=== PATIENT | female | born 1955 | race Caucasian/White ===

== ENCOUNTER 2016-12-22 21:34 | Emergency (ER) | payer OTHER ==
[~2016-12-22] VITALS: Ht 160 cm; Wt 84.5 kg
[~2016-12-22 21:34] MED LIST: ADAL1KIT SC; DYZ PO; FOLI1TAB7 PO; METH2.5T PO; MULT1CAP3 PO; POTA99TA PO
[2016-12-22 21:40] VITALS: Ht 160 cm; Wt 84.5 kg
[2016-12-22] MEDS ORDERED: DiphenhydrAMINE HCL 50 MG/ML VIAL IV STA (22:12)
[2016-12-22] MEDS ORDERED: DEXAMETHASONE SOD INJ 4 MG/ML VIAL IV STA (22:12)
[2016-12-22] MEDS ORDERED: SODIUM CHLORIDE 0.9% 1000ML 1,000 ML IV STA (22:12)
[2016-12-22] MEDS ORDERED: ONDANSETRON INJ 2 MG/ML 2 ML VIAL IV STA (22:12)
[2016-12-22 22:42] LABS: BASO % 0.3 %; BASO ABS # 0.02 K/uL (0-0.2); COMPLETE YES; EOS % 0.7 %; IG% 0.1 %; LYMPH % 21.2 %; MEAN CELL VOLUME 91.9 fL (80-100); MEAN CORPUSCULAR HEMOGLOBIN 30.9 pg (25-34); MEAN CORPUSCULAR HGB CONC 33.7 g/dl (32-36); MEAN PLATELET VOLUME 9.6 fL (7.4-10.4); MONO % 6.6 %; NEUT % 71.1 %; PLATELET COUNT 256 K/uL (130-400); RED BLOOD COUNT 4.46 M/uL (4.2-5.4); WHITE BLOOD COUNT 7.07 K/uL (4.8-10.8)
[2016-12-22] MEDS ORDERED: TRIA37.53 PO (22:45)
[2016-12-22 23:08] LABS: BUN/CREATININE RATIO 14.7 (10-20); CALCIUM 9.3 mg/dl (8.5-10.1); CREATININE 0.99 mg/dl (0.60-1.20)
[2016-12-22] MEDS ORDERED: HYDROmorphone INJ 1 MG/ML SYR IV STA (23:14)
--- NOTE | 2016-12-23 00:31 | EMERGENCY ROOM VISIT NOTE ---
History First contact with patient: 22:02 Chief Complaint: VOMITING Stated Complaint: DEHYDRATED,THROWING UP Nursing Triage Summary: migraine all day, vomiting on the way here, feels she is dehydrated, whole body ahces History of Present Illness The patient is a 61 year old female who presents to the Emergency Room with complaints of headache, dizziness and vomiting. The patient states her symptoms began yesterday. She reports she has a history of headaches and does typically have associated dizziness. She states these happened frequently and she does not have a headache like this in at least 5 years. It is not the worst headache of her life. She states that she becomes dizzy when standing up and moving. She has had persistent vomiting. She has a history of rheumatoid arthritis and states that she does have body aches and feels like she is dehydrated. She denies neck pain/stiffness, fevers, abdominal pain, numbness, weakness, confusion, blurred vision or slurred speech. Review of Systems A complete 10 point review of systems was reviewed with the patient with pertinent positives and negatives as per history of present illness. All else were negative. Past Medical/Surgical History Medical Problems: (1) Calculus Of Ureter (2) Cholelith W Cholecys Nec (3) Diverticulosis Colon (W/O Ment Of Hemorrhage) (4) Esophageal Reflux (5) Hypertension Nos (6) Migraine Unspecified W/O Intractable Migraine Social History Smoking Status: Never Smoker Alcohol Use: occasionally Marital Status: Occupation Status: employed Current/Historical Medications Scheduled Adalimumab (Humira), 40 MG SC [id number] Folic Acid (Folvite), 1 MG PO HS Methotrexate (Methotrexate), 15 MG PO WK Multiple Vitamins W/ Minerals (Womens Multi), 1 CAP PO DAILY Potassium (Potassium), MEQ PO DAILY Triamterene & Hydrochlorothiaz (Hctz/Triamterene), 1 TAB PO DAILY Allergies Coded Allergies: Acetylcysteine (Verified Allergy, Severe, Throat Swelling, Cough, Dry Mouth, Itching, 12/22/16) Physical Exam Vital Signs Date Time Temp Pulse Resp B/P (MAP) Pulse Ox O2 Delivery O2 Flow Rate FiO2 12/23/16 00:42 37.0 87 18 117/64 95 12/22/16 23:34 87 18 117/64 90 Room Air 12/22/16 21:40 37.8 97 18 160/92 93 Room Air Physical Exam VITALS: Vitals are noted on the nurse's note and reviewed by myself. Vital signs stable. GENERAL: This is a 61-year-old female, in no acute distress, nondiaphoretic, well-developed well-nourished. SKIN: The skin was without rashes. HEAD: Normocephalic atraumatic. EARS: External auditory canals clear, tympanic membranes pearly mae without erythema or effusion bilaterally. EYES: Pupils equal round and reactive to light and accommodation. Conjunctivae without injection, sclerae without icterus. Extraocular movements intact. No nystagmus. MOUTH: Mucous membranes moist. Tonsils are not enlarged. Pharynx without erythema or exudate. NECK: Supple without nuchal rigidity. No lymphadenopathy. No meningismus. HEART: Regular rate and rhythm without murmurs gallops or rubs. LUNGS: Clear to auscultation bilaterally without wheezes, rales or rhonchi. ABDOMEN: Soft, nontender to palpation. MUSCULOSKELETAL: Full range of motion in all extremities. Strength 5/5 throughout. NEURO: Patient was alert and oriented to person place and time. Normal sensation to light and sharp touch. No focal neurological deficits. Medical Decision & Procedures ER Provider Diagnostic Interpretation: CT HEAD: No ICH, mass effect or edema. No evidence of acute cortical stroke. Visualized sinuses and mastoid air cells are clear. Radiologist: Gautam Fisher MD Laboratory Results 12/22/16 22:30 Red Blood Count 4.46, Mean Corpuscular Volume 91.9, Mean Corpuscular Hemoglobin 30.9, Mean Corpuscular Hemoglobin Concent 33.7, Mean Platelet Volume 9.6, Neutrophils (%) (Auto) 71.1, Lymphocytes (%) (Auto) 21.2, Monocytes (%) (Auto) 6.6, Eosinophils (%) (Auto) 0.7, Basophils (%) (Auto) 0.3, Neutrophils # (Auto) 5.02, Lymphocytes # (Auto) 1.50, Monocytes # (Auto) 0.47, Eosinophils # (Auto) 0.05, Basophils # (Auto) 0.02 12/22/16 22:30 Test 12/22/16 22:30 White Blood Count 7.07 K/uL (4.8-10.8) Red Blood Count 4.46 M/uL (4.2-5.4) Hemoglobin 13.8 g/dL (12.0-16.0) Hematocrit 41.0 % (37-47) Mean Corpuscular Volume 91.9 fL (80-100) Mean Corpuscular Hemoglobin 30.9 pg (25-34) Mean Corpuscular Hemoglobin Concent 33.7 g/dl (32-36) Platelet Count 256 K/uL (130-400) Mean Platelet Volume 9.6 fL (7.4-10.4) Neutrophils (%) (Auto) 71.1 % Lymphocytes (%) (Auto) 21.2 % Monocytes (%) (Auto) 6.6 % Eosinophils (%) (Auto) 0.7 % Basophils (%) (Auto) 0.3 % Neutrophils # (Auto) 5.02 K/uL (1.4-6.5) Lymphocytes # (Auto) 1.50 K/uL (1.2-3.4) Monocytes # (Auto) 0.47 K/uL (0.11-0.59) Eosinophils # (Auto) 0.05 K/uL (0-0.5) Basophils # (Auto) 0.02 K/uL (0-0.2) RDW Standard Deviation 48.6 fL (36.4-46.3) RDW Coefficient of Variation 14.6 % (11.5-14.5) Immature Granulocyte % (Auto) 0.1 % Immature Granulocyte # (Auto) 0.01 K/uL (0.00-0.02) Anion Gap 6.0 mmol/L (3-11) Est Creatinine Clear Calc Drug Dose 61.4 ml/min Estimated GFR () 71.3 Estimated GFR (Non- 61.5 BUN/Creatinine Ratio 14.7 (10-20) Calcium Level 9.3 mg/dl (8.5-10.1) Total Bilirubin 0.7 mg/dl (0.2-1) Direct Bilirubin 0.2 mg/dl (0-0.2) Aspartate Amino Transf (AST/SGOT) 21 U/L (15-37) Alanine Aminotransferase (ALT/SGPT) 37 U/L (12-78) Alkaline Phosphatase 84 U/L (45-117) Total Protein 7.6 gm/dl (6.4-8.2) Albumin 4.0 gm/dl (3.4-5.0) Medications Administered Medications (Trade) Dose Ordered Sig/Kai Route Start Time Stop Time Status Last Admin Dose Admin Sodium Chloride 1,000 ml @ 999 mls/hr Q1H1M STAT IV 12/22/16 22:12 12/22/16 23:12 DC 12/22/16 22:32 999 MLS/HR Dexamethasone Sodium Phosphate (Decadron Inj) 10 mg NOW STAT IV 12/22/16 22:12 12/22/16 22:15 DC 12/22/16 22:33 10 MG Diphenhydramine HCl (Benadryl Inj) 25 mg NOW STAT IV 12/22/16 22:12 12/22/16 22:15 DC 12/22/16 22:33 25 MG Ondansetron HCl (Zofran Inj) 4 mg NOW STAT IV 12/22/16 22:12 12/22/16 22:15 DC 12/22/16 22:33 4 MG Hydromorphone HCl (Dilaudid Inj) 1 mg NOW STAT IV 12/22/16 23:14 12/22/16 23:15 DC 12/22/16 23:26 1 MG ED Course The patient was evaluated as above. Labs were drawn and IV access was obtained. Patient was medicated with 10 mg Decadron, 25 mg Benadryl and [address] of the head was performed and read by radiology as above. Patient was reevaluated and was sleeping. The patient was woken up and reported that she had no improvement of her symptoms. She was given 1 mg Dilaudid IV. Patient was reevaluated and was sleeping and had to be woken up. She states she still has a slight headache, but feels ready for discharge home. Discharge instructions were reviewed with the patient. The patient verbalized understanding of my assessment and treatment plan and was discharged home in good condition. Medical Decision The differential diagnosis includes acute intracranial bleed, meningitis, encephalitis, mass or mass effect, sinusitis, infection, tumor, headache, temporal arteritis and carbon monoxide exposure, and migraine. The patient is a 61-year-old female who presents today complaining of headache, dizziness and vomiting. Patient has been seen here before for the same symptoms. She states she has a history of similar symptoms and she typically does have dizziness and vomiting with her headaches. There are no physical exam findings to suggest meningitis or encephalitis. Patient's initial temperature was elevated, however this was rechecked and was within normal limits without any antipyretics. Labs revealed no leukocytosis, anemia or concerning electrolyte abnormalities. CT of the head was unremarkable. The patient had improvement with the above medications. I do not feel that she has a subarachnoid hemorrhage or infectious process. She was certainly invited to return here if she has worsening symptoms at home. Based on the patient's presentation and work up, I feel the patient is stable for outpatient treatment. The patient was educated to return to the emergency department for any worsening of their current condition or new/concerning symptoms. She will follow up with her PCP. Medication reconciliation: I attest that I have personally reviewed the patient 's current medication list. Blood pressure screening: Patient was found to have normal blood pressure on screening and does not require follow-up. Impression Primary Impression: Headache Departure Information Dispostion Home / Self-Care Condition GOOD Referrals Rona Gray,[email or web address].[email or web address] (PCP) Patient Instructions My [facility] Additional Instructions You have been treated in the Emergency Department for a Headache. You have received pain medicine in the emergency department which impairs your ability to operate a vehicle. It is illegal for you to drive after receiving these medicines. For pain control, you can use the following [id number]-jfpcduq medicines (if >12 yo): - Regular strength (325mg/tab) Tylenol (acetaminophen) 2 tabs every 4-6 hours as needed. Do not exceed 12 tablets in a 24 hour period. Avoid taking more than 4 grams (4000 mg) of Tylenol per day. This includes any other sources of acetaminophen you may take on a regular basis. - Regular strength (200 mg/tab) Advil (ibuprofen) 1-2 tabs every 4-6 hours as needed. Do not exceed a dose of 3200 mg per day. You should relax in a quiet, dark place for the rest of the day. Avoid any possible triggers including: cigarette smoke, caffeine, nicotine, chocolate, wine, beer, loud noises or music, or bright lights. You should schedule a follow-up appointment in 2-3 days with your Primary Care Provider or established Neurologist for further evaluation and treatment of your Headache. Return to the Emergency Department if your current symptoms worsen despite treatment course outlined above, or if you develop any of the following symptoms : intractable pain despite aforementioned treatment course, visual disturbances , loss of vision, unilateral weakness or facial drooping, slurring of speech, loss of coordination, or loss of consciousness. Problem Qualifiers Primary Impression: Headache Headache type: unspecified Headache chronicity pattern: acute headache Intractability: not intractable Qualified Codes: R51 - Headache
[2016-12-23 00:42] VITALS: BP 117/64; PULSE 87; TEMP 37; O2SAT 95
--- NOTE | 2016-12-23 07:05 | DIAGNOSTIC IMAGING REPORT ---
CT HEAD WITHOUT CONTRAST (CT) CLINICAL HISTORY: headache, dizziness COMPARISON STUDY: 10/01/2013 TECHNIQUE: Axial CT of the brain is performed from the vertex to the skull base. IV contrast was not administered for this examination. CT DOSE: 537.48 mGy.cm FINDINGS: No intra or extra-axial mass lesions are visualized. There is no CT evidence of acute cortical infarction. There is no evidence of midline shift. There is no acute hemorrhage. No calvarial fractures are visualized. There are minimal white matter hypodensities likely on a small vessel basis. There is no evidence of pathologic ventricular dilatation. There is trace fluid within sphenoid sinus. IMPRESSION: Trace fluid within the sphenoid sinus. Otherwise unremarkable noncontrast head CT for age Electronically signed by: Teddy Nova M.D. 12/23/2016 7:04 AM Dictated Date/Time: 12/23/2016 7:03 AM
== END 2016-12-23 00:43 | disposition home or self-care (01) ==
LOC: C.EDB 21:35 → C.EDA 12-23 00:43
DX: R51 Headache (principal); Z87.442 Personal history of urinary calculi; K21.9 Gastro-esophageal reflux disease without esophagitis; I11.0 Hypertensive heart disease with heart failure; K57.30 Diverticulosis of large intestine without perforation or abscess without bleeding; K80.10 Calculus of gallbladder with chronic cholecystitis without obstruction; Z79.899 Other long term (current) drug therapy

== ENCOUNTER 2017-05-20 00:32 | Emergency (ER) | payer OTHER ==
[~2017-05-20] VITALS: Ht 160 cm; Wt 80.5 kg
[~2017-05-20 00:32] MED LIST changes: -DYZ PO; +TRIA37.53 PO
[2017-05-20 00:42] VITALS: TEMP 36.8; Ht 160 cm; Wt 80.5 kg
[2017-05-20] MEDS ORDERED: MoRPHine SULFATE 4 MG/ML 1 ML CARP\\VIAL IM STA (00:54)
--- NOTE | 2017-05-20 00:56 | EMERGENCY ROOM VISIT NOTE ---
History Report prepared by Scribe: Sadia Ellison Under the Supervision of: Dr. Law Kent D.O. First contact with patient: 00:45 Chief Complaint: SHOULDER PAIN Stated Complaint: SHOULDER PAIN History of Present Illness The patient is a 62 year old female who presents to the Emergency Room with complaints of worsening left shoulder pain since last night. She rates her discomfort as a 10/10 in severity. Ibuprofen and ice have provided minimal pain relief. She denies any known injury. She states her left arm also feels numb and her fingers appear swollen. She can still feel normal sensation in the fingers. She denies any history of rotator cuff injuries or shoulder dislocation. She denies any neck pain. The patient also complains of dizziness and nausea. The patient has a history of rheumatoid arthritis for which she takes Methotrexate and receives Humira injections. She reports her other joints feel normal currently. Source of History: patient Onset: last night Position: shoulder (left) Symptom Intensity: 10/10 Timing: worsening Modifying Factors (Relieving): ibuprofen, ice Associated Symptoms: + nausea, + numbness (in fingers of left hand), No neck pain Review of Systems See HPI for pertinent positives and negatives. A total of ten systems were reviewed and were otherwise negative. Past Medical & Surgical Medical Problems: (1) Calculus Of Ureter (2) Cholelith W Cholecys Nec (3) Diverticulosis Colon (W/O Ment Of Hemorrhage) (4) Esophageal Reflux (5) Hypertension Nos (6) Migraine Unspecified W/O Intractable Migraine Social History Smoking Status: Never Smoker Alcohol Use: occasionally Drug Use: none Marital Status: Housing Status: lives with family Occupation Status: employed Current/Historical Medications Scheduled Adalimumab (Humira), 40 MG SC [id number] Folic Acid (Folvite), 1 MG PO HS Methotrexate (Methotrexate), 15 MG PO WK Multiple Vitamins W/ Minerals (Womens Multi), 1 CAP PO DAILY Potassium (Potassium), MEQ PO DAILY Triamterene & Hydrochlorothiaz (Hctz/Triamterene), 1 TAB PO DAILY Allergies Coded Allergies: Acetylcysteine (Verified Allergy, Severe, Throat Swelling, Cough, Dry Mouth, Itching, 12/22/16) Physical Exam Vital Signs Date Time Temp Pulse Resp B/P (MAP) Pulse Ox O2 Delivery O2 Flow Rate FiO2 05/20/17 02:15 84 18 127/76 98 Room Air 05/20/17 00:42 36.8 81 18 120/80 97 Room Air Physical Exam GENERAL: Awake, alert, well-appearing, in no distress HENT: Normocephalic, atraumatic. Oropharynx unremarkable. EYES: Normal conjunctiva. Sclera non-icteric. NECK: Supple. No nuchal rigidity. FROM. No JVD. RESPIRATORY: Clear to auscultation. CARDIAC: Regular rate, normal rhythm. Extremities warm and well perfused. Pulses equal. ABDOMEN: Soft, non-distended. No tenderness to palpation. No rebound or guarding. No masses. RECTAL: Deferred. MUSCULOSKELETAL: Tenderness at left proximal humerus, tenderness at left trapezius, no tenderness at post cervical region, tenderness along left biceps with slight edema, all the way down to left hand, bounding radial pulse, NVI distally. Increased pain with abduction of left shoulder. Chest examination reveals no tenderness. The back is symmetrical on inspection without obvious abnormality. There is no CVA tenderness to palpation. LOWER EXTREMITIES: Calves are equal size bilaterally and non-tender. No edema. No discoloration. NEURO: Normal sensorium. No sensory or motor deficits noted. SKIN: No rash or jaundice noted. Medical Decision & Procedures ER Provider Diagnostic Interpretation: X-ray: Per my interpretation, radiologist review. LEFT SHOULDER XRAY Post soft tissue swelling of left shoulder. No fracture or dislocation. Medications Administered Medications (Trade) Dose Ordered Sig/Kai Route Start Time Stop Time Status Last Admin Dose Admin Morphine Sulfate (MoRPHine SULFATE INJ) 4 mg NOW STAT IM 05/20/17 00:54 05/20/17 00:55 DC 05/20/17 01:01 4 MG Acetaminophen/ Hydrocodone Bitart ([place] 5/325 Tab) 1 tab NOW STAT PO 05/20/17 02:02 05/20/17 02:03 DC 05/20/17 02:12 1 TAB Acetaminophen/ Hydrocodone Bitart ([place] 5/325mg Home Pack) 1 homepack UD ONCE PO 05/20/17 02:15 05/20/17 02:16 DC 05/20/17 02:12 1 HOMEPACK Ibuprofen (Motrin Tab) 800 mg NOW STAT PO 05/20/17 02:02 05/20/17 02:03 DC 05/20/17 02:12 800 MG ED Course 0049: The patient was evaluated in room A4B. A complete history and physical exam was performed. 0054: Morphine Sulfate 4 mg IM. 0156: I reevaluated the patient. She is feeling well and resting comfortably. I discussed her results and discharge instructions and she verbalized complete understanding and agreement. Medical Decision The differential diagnoses considered include radiculopathy, herniated disc, arthritis, adhesive capsulitis, RA flare and occult fracture. Patient on repeat examination feels slightly improved after IM morphine. Patient likely has bursitis or arthritis and radiculopathy at this time. Patient was started on Motrin morphine and Lortab. Patient will follow-up with her primary care physician patient is also receive Humira today Patient's [employer] was reviewed there is no recent narcotic prescriptions in the past year Medication Reconcilliation Current Medication List: was personally reviewed by me Blood Pressure Screening Patient's blood pressure: Normal blood pressure Blood pressure disposition: Did not require urgent referral Impression Primary Impression: Left shoulder pain Additional Impression: Arthritis Scribe Attestation The scribe's documentation has been prepared under my direction and personally reviewed by me in its entirety. I confirm that the note above accurately reflects all work, treatment, procedures, and medical decision making performed by me. Departure Information Dispostion Home / Self-Care Prescriptions Hydrocodone/Acetaminophen 5MG/325MG ([place] 5MG/325MG) Tab 1 TABLET PO Q4H Y for Pain, #10 TAB Prov: Law Kent, DO 05/20/17 Referrals Lora Lawton C.R.N.P (PCP) Patient Instructions Arthritis, ED Shoulder Pain [facility] [place], [facility] [place] Additional Instructions Continue pain medicines, follow-up with her primary care physician, return for worsening symptoms Problem Qualifiers
[2017-05-20] MEDS ORDERED: IBUPROFEN 800 MG TAB PO STA (02:02)
[2017-05-20] MEDS ORDERED: HYDROCODONE/ACETAMOPHEN 5/325MG TAB PO STA (02:02)
[2017-05-20 02:15] VITALS: BP 127/76; PULSE 84; O2SAT 98
[2017-05-20] MEDS ORDERED: NORCO 5/325MG HOME PACK PO ONE (02:15)
[2017-05-20] MEDS ORDERED: HYDR-5688 PO (02:19)
--- NOTE | 2017-05-20 08:19 | DIAGNOSTIC IMAGING REPORT ---
LEFT SHOULDER 3 VIEWS CLINICAL HISTORY: Left shoulder pain. No reported history of trauma. FINDINGS: 3 views of the left shoulder are obtained. No prior studies are available for comparison at the time of dictation. The skeletal structures are osteopenic. No fracture or dislocation is seen. Mild productive change is identified at the acromioclavicular joint. The glenohumeral articulation is preserved. The overlying soft tissues are within normal limits. The imaged left upper lobe lung parenchyma appears clear. IMPRESSION: No acute bony abnormality is seen in the left shoulder. Electronically signed by: Jaidel Azar M.D. 05/20/2017 8:18 AM Dictated Date/Time: 05/20/2017 8:17 AM
== END 2017-05-20 02:30 | disposition home or self-care (01) ==
LOC: C.EDB 00:33 → C.EDA 02:30
DX: M25.512 Pain in left shoulder (principal); M19.90 Unspecified osteoarthritis, unspecified site; R20.0 Anesthesia of skin; R11.0 Nausea; I10 Essential (primary) hypertension; K21.9 Gastro-esophageal reflux disease without esophagitis; Z79.899 Other long term (current) drug therapy; Z87.442 Personal history of urinary calculi; Z87.19 Personal history of other diseases of the digestive system

== ENCOUNTER → 2017-05-29 | Outpatient (CLI) | payer OTHER ==
[~2017-05-29] MED LIST changes: -FOLI1TAB7 PO; +FOLI1TAB8 PO; +HYDR-5688 PO
[2017-05-29 13:00] LABS: CHOLESTEROL/HDL RATIO 3.6
== END | disposition home or self-care (01) ==
LOC: C.LABPVFM 09:49
PROVIDERS: ATTEND Nurse Practitioner
DX: I10 Essential (primary) hypertension (principal)

== ENCOUNTER → 2017-06-21 | Outpatient (CLI) | payer OTHER ==
--- NOTE | 2017-06-22 14:37 | MAMMOGRAPHY REPORT ---
BILATERAL DIGITAL SCREENING MAMMOGRAM TOMOSYNTHESIS WITH CAD: 06/21/2017 CLINICAL HISTORY: Routine screening. Patient has no complaints. TECHNIQUE: Breast tomosynthesis in addition to standard 2D mammography was performed. Current study was also evaluated with a Computer Aided Detection (CAD) system. COMPARISON: Comparison is made to exams dated: 02/07/2011 mammogram - [facility] an d 06/19/2008. BREAST COMPOSITION: There are scattered areas of fibroglandular density in both breasts. FINDINGS: No suspicious masses, calcifications, or areas of architectural distortion are noted in ei ther breast. There has been no significant interval change compared to prior exams. Scattered bilater al benign-appearing calcifications are not significantly changed. IMPRESSION: ACR BI-RADS CATEGORY 2: BENIGN There is no mammographic evidence of malignancy. A 1 year screening mammogram is recommended. The pa tient will receive written notification of the results. Approximately 10% of breast cancers are not detected with mammography. A negative mammographic report should not delay biopsy if a clinically suggestive mass is present. Debra Simons M.D. ah/:06/21/2017 12:51:01 Real Estate Agent/Broker: Rona RYAN(Bessie)(M)(BD), [facility] letter sent: Normal /2 BI-RADS Code: ACR BI-RADS Category 2: Benign
== END | disposition home or self-care (01) ==
LOC: C.MAMM 10:47
PROVIDERS: ATTEND Nurse Practitioner
DX: M85.88 Other specified disorders of bone density and structure, other site (principal)

== ENCOUNTER 2024-08-06 08:37 | Inpatient (IN) ==
[2024-08-06] MEDS: SODIUM CHLORIDE 0.9% 1,000 ML IV ONE (09:45)
[2024-08-06] MEDS: LORazepam 2 MG/1 ML VIAL IV STA (09:45)
--- OUTSIDE RECORDS SUMMARY | 2024-08-06 09:48 | External Medical Summary | Summary of Care ---
Author Name Unknown Organization [facility] Address [address] [facility] [place] [address] Phone [phone] Care Team Providers Care Body Welder Name Role Phone Lora Lawton Primary Care Provide r Encounter Details Date Type Department Care Team (Late st Contact Info) Description 07/10/2024 Population Health External Data Unspecified Department Allergies Active Allergy Reactions Criticality Noted Date Comments Acetylcysteine 02/01/2015 documented as of this encounter (statuses as of 07/10/2024) Medications TRIAMTERENE-HCT Z 37.5-25 MG PO CAPS daily Active Potassium 99 MG Tablet 1 daily Active Atorvastatin Calcium 10 MG Oral Tablet (Lipitor) Take 1 Tablet by mouth in the morning. 11/12/2020 Active predniSONE 20 MG Oral Tablet (Deltasone) TAKE 3 TABLETS ONCE DAILY FOR 2 DAYS,2TABS X 2DAYS,1TAB X 2DAYS,1/2TAB X 2DAYS 01/15/2022 Active predniSONE 5 MG Oral Tablet (Deltasone) 4 tabs daily x 3 days, 3 tabs daily x 3 days, 2 tabs daily x 3 days, 1 tab daily x 3 days, stop 30 Tablet 02/16/2022 Active Naproxen 500 MG Oral Tablet (Naprosyn) Take 1 Tablet by mouth 2 times a day with morning and evening meals. 08/01/2023 Active Aspirin 81 MG Oral Tablet Delayed Release Take 1 Tablet by mouth in the morning. 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 90 Tablet 1 02/19/2024 Active documented as of this encounter (statuses as of 07/10/2024) Active Problems Problem Noted Date Diagnosed Date Encounter for long-term (current) use of medicat ions 06/06/2017 Primary osteoarthritis of both knees 06/06/2017 Rhe[facility] of [facility] without rheumatoid factor 12/15/2015 Hypertension documented as of this encounter (statuses as of 07/10/2024) Resolved Problems Problem Noted Date Diagnosed Date Resolved Date RA (rheumatoid arthritis) 02/01/2015 documented as of this encounter (statuses as of 07/10/2024) Immunizations Name Administration Dates Next Due PPD 09/16/2013 Pneumococcal Polysaccharide PPV23 (Pneumovax) 04/07/2015 Seasonal Influenza Vac., MDV , IM, 0.5 mL (Fluzone) 05/29/2018,04/06/2017,04/07/2015,04/01 Seasonal Influenza, Quadriva lent, No Preserve, IM 02/18/2020 Seasonal Influenza, Quadriva lent, No Preserve, Mdck 04/05/2019 documented as of this encounter Social History Tobacco Use Types Packs/Day Years Used Date Smoking Tobacco: Never Smokeless Tobacco: Never Alcohol Use Standard Drinks/Week Comments No 0 (1 standard drink = 0.6 oz pur e alcohol) Utilities Answer Date Recorded Do you have trouble paying y our heating, water, or electric bill? (Adult - for ages 18 years and over) Not on file 12/04/2023 Is your family able to pay t he heat, water, or electric bill? (Household - for ages 0-17 years) Not on file 12/04/2023 Does your family have access to good internet? (Household - for ages 0-17 years) Not on file 12/04/2023 Social Connections Answer Date Recorded How often do you feel lonely or isolated from those around you? (Adult - for ages 18 years and over) Not on file 12/04/2023 Comments No Sex and Gender Information Value Date Recorded Sex Assigned at Female 01/19/2022 8:07 AM EDT Legal Sex Female 5:57 AM EST Gender Identity Female 01/19/2022 8:07 AM EDT Sexual Orientation Straight 01/19/2022 8: 07 AM EDT documented as of this encounter Plan of Treatment Health Maintenance Due Date Last Done Comments COVID-19 Vaccine (#1) 1960 Depression Screening 1967 Albumin/Creatinine Ratio 1973 Hepatitis C Screening 1973 DTap/Tdap Vaccines (1 - Tdap) 1974 Zoster Vaccines (1 of 2) 1974 Mammogram 1995 Cologuard 2000 Colonoscopy 2000 Colorectal Cancer Screening 2000 Fecal Occult Blood Test 2000 Sigmoidoscopy 2000 Pneumococcal Vaccine: 50+ Years (2 of 2 - PCV) 04/07/2016 04/07/2015 Influenza Vaccine (FLU shot) (#1) 2024 02/18/2020, 04/05/2019, 05/29/2018, Additional history exists GFR 02/12/2025 02/13/2024, 06/07/2022, 03/03/2022, Additional history exists Lipid Panel 10/21/2026 10/21/2021 Diabetes Screening 02/12/2027 02/13/2024, 0 10/21/2021, 11/16/2020, Additional history exists DXA Scan 12/28/2029 12/28/2022 HPV (Gardasil) Vaccine Aged Out No lo nger eligible based on patient's age to complete this topic Hepatitis B Vaccine Aged Out No longe r eligible based on patient's age to complete this topic MENINGOCOCCAL (MENACTRA/MENVEO) Aged Out No longer eligible based on patient's age to complete this topic documented as of this encounter Medical Devices Not on filedocumented as of this encounter Care Teams Body Welder Relationship Specialty Start Date End Date Lora Lawton CRNP [address] [id number] PCP - General Nurse Practitioner 01/20/15 documented as of this encounter
--- OUTSIDE RECORDS SUMMARY | 2024-08-06 09:48 | External Medical Summary | Summary of Care ---
Author Name Unknown Organization [facility] Address [address] [facility] [place] [address] Phone [phone] Care Team Providers Care Quality Control Checker Name Role Phone Lora Lawton Primary Care Provide r Encounter Details Date Type Department Care Team (Late st Contact Info) Description 03/11/2024 Orders Only Rheumatology [place] [address] [address] [place] [address] Rico Lara MD [facility] [employer] [place] [address] Allergies Active Allergy Reactions Criticality Noted Date Comments Acetylcysteine 02/01/2015 documented as of this encounter (statuses as of 03/11/2024) Medications Medication Sig Dispensed Refills Start Date End Date Status TRIAMTERENE-HCTZ 37.5-25 MG PO CAPS daily Active Potassium [...] the morning. Active Methotrexate 2.5 MG Oral TabletIndications:Rhe umatoid arthritis of multiple sites without rheumatoid factor (HCC) Take 6 Tablets by mouth once a week. 78 Tablet 1 02/19/2024 Active Folic Acid 1 MG Oral TabletIndications:Rhe umatoid arthritis of multiple sites without rheumatoid factor (HCC) Take 1 Tablet by mouth in the morning. 90 Tablet 1 02/19/2024 Active documented as of this encounter (statuses as of 03/11/2024) Active Problems Problem Noted Date Diagnosed Date Encounter for long-term (current) use of medicat ions 06/06/2017 Primary osteoarthritis of both knees 06/06/2017 Rheumatoid arthritis of [facility] sites without rheumatoid factor 12/15/2015 Hypertension documented as of this encounter (statuses as of 03/11/2024) Resolved Problems Problem Noted Date Diagnosed Date Resolved Date RA (rheumatoid arthritis) 02/01/2015 documented as of this encounter (statuses as of 03/11/2024) Immunizations Name Administration Dates Next Due PPD 09/16/2013 Pneumococcal Polysaccharide PPV23 (Pneumovax) 04/07/2015 Seasonal Influenza, Quadriva lent, No Preserve, IM 02/18/2020 Seasonal Influenza, Quadriva lent, No Preserve, Mdck 04/05/2019 Seasonal Influenza, Trivalen t, (IIV3), with Preserv, (Fluzone) 05/29/2018,04/06/2017,04/07/2015,04/01 documented as of this encounter Social History [...] years and over) Not on file 12/04/2023 Sex and Gender Information Value Date Recorded Sex Assigned at Female 01/19/2022 8:07 AM EDT Gender Identity Female 01/19/2022 8:07 AM EDT Sexual Orientation Straight 01/19/2022 8: 07 AM EDT Job Start Date Occupation Industry Not on file Not on file Not on file documented as of this encounter Plan of Treatment Health Maintenance Due Date Last Done Comments COVID-19 Vaccine (#1) 1960 Depression Screening 1967 Albumin/Creatinine Ratio 1973 Hepatitis C Screening 1973 DTap/Tdap Vaccines (1 - Tdap) 1974 Zoster Vaccines (1 of 2) 1974 Mammogram 1995 Cologuard 2000 Colonoscopy 2000 Colorectal Cancer Screening 2000 Fecal Occult Blood Test 2000 Sigmoidoscopy 2000 Pneumococcal Vaccine: 65+ Years (2 of 2 - PCV) 04/07/2016 [...] Not on filedocumented as of this encounter Procedures Procedure Name Priority Date/Time Associated Diagnosis Comments CHEMISTRY-OUTSIDE Routine 02/13/2024 documented in this encounter Results * CHEMISTRY-OUTSIDE (02/13/2024) Not all results display below - see scan for full detail OUTSIDE LAB (SEE SCANNED REPORT) Comment:SEE SCAN - [facility]CD CREATININE OUTSIDE L AB (SEE SCANNED REPORT) EGFR OUTSIDE LA B (SEE SCANNED REPORT) POTASSIUM OUTSIDE LA B (SEE SCANNED REPORT) GLUCOSE OUTSIDE LA B (SEE SCANNED REPORT) HOURS FASTING OUTSID E LAB (SEE SCANNED REPORT) TRIGLYCERIDES-OUT SIDE LAB OUTSIDE LAB (SEE SCANNED REPORT) CHOLESTEROL-OUTSI DE LAB OUTSIDE LAB (SEE SCANNED REPORT) HDL-OUTSIDE LAB OUTS [facility] (SEE SCANNED REPORT) CHOL/HDL RATIO-OUTSIDE LAB OUTSIDE LA B (SEE SCANNED REPORT) LDL (CALCULATED)-OUTS [place] [facility] OUTSIDE LAB (SEE SCANNED REPORT) LDL (DIRECT MEASURE)-OUTSIDE LAB OUTSIDE LAB (SEE SCANNED REPORT) HEMOGLOBIN, [id number] LAB OUTSIDE LAB (SEE SCANNED REPORT) PHOSPHORUS-OUTSID E LAB OUTSIDE LAB (SEE SCANNED REPORT) PTH-OUTSIDE LAB OUTS [facility] (SEE SCANNED REPORT) MICROALBUMIN RATIO-OUTSIDE LAB OUTSIDE LA B (SEE SCANNED REPORT) PROTEIN, UA-OUTSIDE LAB OUTSIDE LAB (SEE SCANNED REPORT) HGB 13.3 12.0 - 16.0 G/DL OUTSIDE LAB (SEE SCANNED REPORT) 02/13/2024 Rico Lara MD LABORATORY OUTSIDE LAB (SEE SCANNED REPORT) documented in this encounter Care Teams Quality Control Checker Relationship Specialty Start Date End Date Lora Lawton CRNP [address] [place] [id number] PCP - General Nurse Practitioner 01/20/15 documented as of this encounter
--- NOTE | 2024-08-06 09:49 | Emergency Department Note ---
Impression & Plan Dizziness, Thrombocytopenia, Nausea & vomiting, Elevated aspartate aminotransferase level, Non-ST elevation CO (NSTEMI), Left thyroid nodule ED Provider Note HISTORY OF PRESENT ILLNESS: Patient is a 69-year-old female presenting with dizziness. Patient reports she has a history of vertigo for the last 2 days she has been having continuous dizziness and vertiginous symptoms. Reports that the only time she feels well is when she is laying flat with a cold washcloth on her face. States that her sooner she tries to sit up or stand up she feels like the room is spinning and feels very nauseous and had multiple episodes of vomiting. She denies any shortness of breath with the dizziness. Does report intermittent left-sided chest pain. Denies any DVT or PE history. Denies any history of cardiac stents. She is not on any anticoagulation or antiplatelet therapy. Denies any recent falls or head injury. Denies any chiropractic manipulation of her neck. She reports she took 2 doses of meclizine at around 7 AM today, but her symptoms persisted, prompting her to present to the emergency department. Reports she is also had diarrhea for the last 2 days. Reports she has generalized bodyaches and feels generally unwell, which is different from her typical vertiginous symptoms. ROS: as above PHYSICAL EXAM: Constitutional: Patient appears in no acute distress. HENT: Head: Normocephalic and atraumatic. Eyes: EOMI, PERRL Mouth/Throat: Mucous membranes moist. Neck: Trachea midline. Neck supple. Cardiovascular: RRR, No murmurs, rubs or gallops. Intact distal pulses. Pulmonary/Chest: No respiratory distress. Breath sounds clear and equal bilaterally. No wheezes or rales. Abdominal: Abdomen soft, no tenderness, rebound or guarding. Musculoskeletal: No edema, tenderness or deformity noted. Skin: Warm and dry. No rash, erythema, pallor or cyanosis Psychiatric: Appropriate mood and affect for situation. Neurological: Alert and keenly responsive. Facies symmetric. Able to raise eyebrows, close eyes, smile, puff mouth, stick out tongue, move tongue left and right and raise palate symmetrically. Able to shrug shoulders. PERRLA. SILT to forehead below eye and at jawline. Can hear soft noise bilaterally. Good finger to nose. Strength 5/5 in bilateral upper and lower extremities. SILT throughout bilateral upper and lower extremities. MDM: - Vitals signs showed tachycardia - History obtained via patient. History as above. - Chronic conditions affecting care: HTN; HLD - Differential diagnoses include, but are not limited to: CVA; intracranial hemorrhage; ACS; pneumonia; viral syndrome; electrolyte abnormality - Order placed for continuous cardiac monitoring. At this time, monitor showed rate of 82 bpm with normal sinus rhythm, per my interpretation. - External medical records reviewed. Wellness visit note dated 10/25/2023 was reviewed. Patient was seen for her yearly checkup. - EKG image interpreted by myself showed normal sinus rhythm. Rate 85 bpm. QT 362. No acute ischemic changes - Laboratory workup interpreted by myself showed leukopenia (WBC 1.80); thrombocytopenia (plt 91); normal PT/INR; stable electrolytes other than hypocalcemia (Ca 8.2); elevated AST (614); elevated troponin (36.1); elevated TSH (5.068) with normal T4); normal lipase - UA negative for infection - CXR image reviewed by myself negative for pneumonia. Radiology notes cardiomegaly and mild pulmonary vascular congestion. - Viral respiratory panel negative - CT head wo contrast negative for acute pathology - CTA head negative for acute pathology. - CTA neck showed calcified plaques in the carotid bifurcations bilaterally without any evidence of stenosis or occlusive disease. Did have a left thyroid nodule. - CT abdomen/pelvis with IV contrast had mild hepatosplenomegaly and diffuse hepatic steatosis noted. - Patient given 1L NS and 0.25 mg IV ativan for hydration and dizziness. However, on reassessment she is still complaining of feeling dizzy. - Patient denies any recent excessive Tylenol usage. Denies any abdominal pain. - Given patient's persistent symptoms and laboratory abnormalities, will admit to hospital service for further evaluation. Hepatitis panel, Monospot and acetaminophen levels were ordered. - Discussion was had with case management social worker about patient's case and need for admission - Hospitalist, Dr. Gabriel, consulted for admission - Patient admitted to [facility]ist service for further evaluation and management. ASSESSMENT AND PLAN: Diagnosis: dizziness; thrombocytopenia; nausea and vomiting; elevated AST; NSTEMI; left thyroid nodule Plan: admit Past Med/Surg History Problem List (Updated 08/06/24 @ 14:22 by Toshia Castro MD) Left thyroid nodule (Acute) Non-ST elevation CO (NSTEMI) (Acute) Elevated aspartate aminotransferase level (Acute) Nausea & vomiting (Acute) Thrombocytopenia (Acute) Dizziness (Acute) Blurry vision, bilateral Nausea in adult Unsteady gait when walking Frontal headache Fatigue Vertigo Acute medial meniscal tear Closed fibular fracture (~06/15/23) Tibial plateau fracture, left (~06/15/23) Swelling of left lower extremity Knee pain, left Vitamin D3 deficiency Screening for heart disease Osteopenia Rheumatoid arthritis Esophageal reflux (Acute) Hypertension Hyperlipidemia Peripheral edema (Chronic) Medical History Erythema migrans (Lyme disease) 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 History of colon polyps Nausea and vomiting after administration of anesthetic agent Rheumatoid arthritis History of kidney stones Tylenol overdose (07/10/14) Hepatitis Surgical History History of cystoscopy History of colonoscopy with polypectomy History of wisdom tooth extraction Hx of cholecystectomy H/O tubal ligation Family History Mother Diabetes Hypertension Father Diabetes Lung cancer Stroke Grandmother Diabetes Grandfather Diabetes Daughter Family history of reaction to anesthesia nausea/vomiting Denies family history of Ovarian cancer Prostate cancer Breast cancer Social History Smoking Status: Never smoker Second Hand Exposure: Yes (father smoked/ smoked); Do You Dip or Chew Tobacco: No; Hx Alcohol Use: Yes Alcohol type: wine Alcohol Intake Frequency: Monthly or Less Hx Substance Use: No Preferred Language: Burkinan Communication Ability: Effective Visual Impairment: Limited Hearing Ability: Normal Edger Liner Required: No Beliefs That Will Affect Care: None marital status: Current Living Situation: Spouse current occupational status: retired 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 How many Children do You have: 5 Feels Safe at Home: Yes Childhood Exposure to Second-Hand Smoke: Yes Diet: regular caffeine: Yes (tea and soda) during the past year weight has: remained stable Dental Care, Regularly: Yes Physical Activity Frequency: Daily Seatbelt Use: always Sunscreen Use: Yes ("sometimes") Do you think of yourself as: straight/heterosexual Gender Identity: Female Assistive Devices: Glasses Allergies Allergies Allergy/AdvReac Type Severity Reaction Status Date / Time acetylcysteine Allergy Severe Throat Verified 08/06/24 12:18 Swelling, Cough, Dry Mouth, Itching Home Meds Home Medications Medication Instructions Recorded Confirmed potassium 99 mg tablet 99 mg PO HS 03/08/20 08/06/24 folic acid 1 mg tablet 1 mg PO DAILY 08/06/24 08/06/24 methotrexate sodium 2.5 mg tablet 15 mg PO WK 08/06/24 08/06/24 Previous Rx's Medication Instructions Recorded Knee immobilizer #1 ea 06/22/23 atorvastatin 10 mg tablet 10 mg PO HS #90 tabs 08/20/23 triamterene 37.5 1 tab PO HS #90 tabs 08/20/23 mg-hydrochlorothiazide 25 mg tablet lorazepam 0.5 mg tablet 0.5 mg PO BID PRN vertigo #10 tabs 02/29/24 meclizine 25 mg tablet See Rx Instructions PO TID PRN 02/29/24 dizziness #60 tabs Results & Data (ED) Vital Signs Vital Signs - 24 hr 08/06/24 08:50 08/06/24 09:16 08/06/24 10:15 Temperature 36.8 C Temperature Source Oral Pulse Rate 82 80 Pulse Rate [Apical] 77 Pulse Rhythm Regular Pulse Strength Normal Respiratory Rate 18 14 Respiratory Effort / Characteristics Non-Labored Spontaneous Respiratory Depth Normal Respiratory Pattern Regular Blood Pressure 110/71 Blood Pressure [Right Arm] 95/59 L Blood Pressure Mean 84 Blood Pressure Mean [Right Arm] 71 Blood Pressure Position Sitting Pulse Oximetry 95 91 Oxygen Delivery Method Room Air Room Air Sepsis Recent Fever Within 48 Hours No Sepsis New/Unexplained Change in Mental Status N/A Sepsis Action Taken by Nursing No Action Required 08/06/24 11:44 08/06/24 12:46 08/06/24 14:00 Temperature Temperature Source Pulse Rate Pulse Rate [Apical] 76 75 82 Pulse Rhythm Pulse Strength Respiratory Rate 16 14 16 Respiratory Effort / Characteristics Respiratory Depth Respiratory Pattern Blood Pressure Blood Pressure [Right Arm] 122/71 130/81 121/73 Blood Pressure Mean Blood Pressure Mean [Right Arm] 88 97 89 Blood Pressure Position Pulse Oximetry 93 93 94 Oxygen Delivery Method Room Air Room Air Room Air Sepsis Recent Fever Within 48 Hours Sepsis New/Unexplained Change in Mental Status Sepsis Action Taken by Nursing Laboratory Data 08/06/24 09:36 08/06/24 09:36 Lab Results 08/06/24 08/06/24 08/06/24 Range/Units 09:36 09:37 10:30 WBC 1.80 L (4.8-10.8) K/ul RBC 4.40 (4.20-5.40) M/uL Hgb 12.6 (12.0-16.0) g/dl Hct 39.2 (37.0-47.0) % MCV 89.1 (80.0-100.0) fL MCH 28.6 (25.0-34.0) pg MCHC 32.1 (32.0-36.0) g/dL RDW Std Deviation 49.3 H (36.4-46.3) fL RDW Coeff of Macy 14.9 H (11.5-14.5) % Plt Count 91 L (130-400) K/uL MPV 11.3 (9.4-12.4) fL Immature Gran % (Auto) 0.6 % Neut % (Auto) 74.9 % Lymph % (Auto) 18.3 % Elbert % (Auto) 5.0 % Eos % (Auto) 0.6 % Baso % (Auto) 0.6 % Neut # (Auto) 1.35 L (1.40-6.50) K/uL Lymph # (Auto) 0.33 L (1.20-3.40) K/uL Elbert # (Auto) 0.09 L (0.11-0.59) K/uL Eos # (Auto) 0.01 (0.00-0.50) K/uL Baso # (Auto) 0.01 (0.00-0.20) K/uL Immature Gran # (Auto) 0.01 (0.01-0.20) K/uL Platelet Estimate Decreased L (Normal) PT 10.3 (9.0-12.0) Seconds INR 0.9 (0.9-1.1) Sodium 138 (136-145) mmol/L Potassium 3.8 (3.5-5.1) mmol/L Chloride 101 (98-107) mmol/L Carbon Dioxide 34 H (21-32) mmol/L Anion Gap 3 (3-11) BUN 22 (6-23) mg/dl Creatinine 1.15 (0.6-1.2) mg/dl Est Cr Clr Drug Dosing 49.4 ml/min eGFR 51.57 BUN/Creatinine Ratio 19.1 (10-20) Glucose 102 H (70-99(Fasting)) mg/dl Calcium 8.2 L (8.6-10.3) mg/dl Magnesium 1.8 (1.7-2.4) mg/dl Total Bilirubin 0.3 (0.2-1.0) mg/dl AST 614 H (13-39) U/L ALT 266 H (7-52) U/L Alkaline Phosphatase 101 (34-104) U/L Troponin I High Sens 36.1 H 34.7 H (0-14) pg/ml Total Protein 5.7 L (6.0-8.3) gm/dl Albumin 3.4 (3.4-5.0) gm/dl Globulin 2.3 L (2.5-4.0) gm/dl Albumin/Globulin Ratio 1.5 (0.9-2) Lipase 50 (11-82) U/L TSH 5.068 H (0.300-4.500) uIu/ml Free T4 0.89 (0.61-1.60) ng/dl Urine Color Urine Appearance (Clear) Urine pH (4.5-7.5) Ur Specific Sprakers (1.000-1.030) Urine Protein (Negative) Urine Glucose (UA) (Negative) Urine Ketones (Negative) Urine Blood (Negative) Urine Nitrite (Negative) Urine Bilirubin (Negative) Urine Urobilinogen (Negative) Ur Leukocyte Esterase (Negative) Urine WBC (Auto) (0-5) /hpf Urine RBC (Auto) (0-2) /hpf U Hyaline Cast (Auto) (0-2) /lpf U Epithel Cells (Auto) (0-2) /hpf Urine Bacteria (Auto) (None Seen) Adenovirus (PCR) Not Detected (NotDetected) B. pertussis DNA (PCR) Not Detected (NotDetected) B.parapertussis DNA PCR Not Detected (NotDetected) C. pneumoniae DNA (PCR) Not Detected (NotDetected) Coronavirus OC43 (PCR) Not Detected (NotDetected) Coronavirus HKU1 (PCR) Not Detected (NotDetected) Coronavirus 229E (PCR) Not Detected (NotDetected) SARS-CoV-2 (PCR) Not Detected (NotDetected) Coronavirus NL63 (PCR) Not Detected (NotDetected) Human Metapneumovir PCR Not Detected (NotDetected) Influenza Type A (PCR) Not Detected (NotDetected) Influenza Type B (PCR) Not Detected (NotDetected) M. pneumoniae (PCR) Not Detected (NotDetected) Parainfluenza 1 (PCR) Not Detected (NotDetected) Parainfluenza 2 (PCR) Not Detected (NotDetected) Parainfluenza 3 (PCR) Not Detected (NotDetected) Parainfluenza 4 (PCR) Not Detected (NotDetected) RSV (PCR) Not Detected (NotDetected) Entero/Rhino (PCR) Not Detected (NotDetected) 08/06/24 Range/Units 13:25 WBC (4.8-10.8) K/ul RBC (4.20-5.40) M/uL Hgb (12.0-16.0) g/dl Hct (37.0-47.0) % MCV (80.0-100.0) fL MCH (25.0-34.0) pg MCHC (32.0-36.0) g/dL RDW Std Deviation (36.4-46.3) fL RDW Coeff of Macy (11.5-14.5) % Plt Count (130-400) K/uL MPV (9.4-12.4) fL Immature Gran % (Auto) % Neut % (Auto) % Lymph % (Auto) % Elbert % (Auto) % Eos % (Auto) % Baso % (Auto) % Neut # (Auto) (1.40-6.50) K/uL Lymph # (Auto) (1.20-3.40) K/uL Elbert # (Auto) (0.11-0.59) K/uL Eos # (Auto) (0.00-0.50) K/uL Baso # (Auto) (0.00-0.20) K/uL Immature Gran # (Auto) (0.01-0.20) K/uL Platelet Estimate (Normal) PT (9.0-12.0) Seconds INR (0.9-1.1) Sodium (136-145) mmol/L Potassium (3.5-5.1) mmol/L Chloride (98-107) mmol/L Carbon Dioxide (21-32) mmol/L Anion Gap (3-11) BUN (6-23) mg/dl Creatinine (0.6-1.2) mg/dl Est Cr Clr Drug Dosing ml/min eGFR BUN/Creatinine Ratio (10-20) Glucose (70-99(Fasting)) mg/dl Calcium (8.6-10.3) mg/dl Magnesium (1.7-2.4) mg/dl Total Bilirubin (0.2-1.0) mg/dl AST (13-39) U/L ALT (7-52) U/L Alkaline Phosphatase (34-104) U/L Troponin I High Sens (0-14) pg/ml Total Protein (6.0-8.3) gm/dl Albumin (3.4-5.0) gm/dl Globulin (2.5-4.0) gm/dl Albumin/Globulin Ratio (0.9-2) Lipase (11-82) U/L TSH (0.300-4.500) uIu/ml Free T4 (0.61-1.60) ng/dl Urine Color Yellow Urine Appearance Clear (Clear) Urine pH 7.0 (4.5-7.5) Ur Specific Sprakers > 1.045 H (1.000-1.030) Urine Protein Trace H (Negative) Urine Glucose (UA) Negative (Negative) Urine Ketones Negative (Negative) Urine Blood 1+ H (Negative) Urine Nitrite Negative (Negative) Urine Bilirubin Negative (Negative) Urine Urobilinogen Negative (Negative) Ur Leukocyte Esterase Negative (Negative) Urine WBC (Auto) 0-5 (0-5) /hpf Urine RBC (Auto) 0-2 (0-2) /hpf U Hyaline Cast (Auto) 0-2 (0-2) /lpf U Epithel Cells (Auto) 0-2 (0-2) /hpf Urine Bacteria (Auto) None Seen (None Seen) Adenovirus (PCR) (NotDetected) B. pertussis DNA (PCR) (NotDetected) B.parapertussis DNA PCR (NotDetected) C. pneumoniae DNA (PCR) (NotDetected) Coronavirus OC43 (PCR) (NotDetected) Coronavirus HKU1 (PCR) (NotDetected) Coronavirus 229E (PCR) (NotDetected) SARS-CoV-2 (PCR) (NotDetected) Coronavirus NL63 (PCR) (NotDetected) Human Metapneumovir PCR (NotDetected) Influenza Type A (PCR) (NotDetected) Influenza Type B (PCR) (NotDetected) M. pneumoniae (PCR) (NotDetected) Parainfluenza 1 (PCR) (NotDetected) Parainfluenza 2 (PCR) (NotDetected) Parainfluenza 3 (PCR) (NotDetected) Parainfluenza 4 (PCR) (NotDetected) RSV (PCR) (NotDetected) Entero/Rhino (PCR) (NotDetected) Administered Medications Discontinued Medications Sodium Chloride (Nss) 1,000 mls @ 999 mls/hr IV .Q1H1M ONE Stop: 08/06/24 10:38 Last Infusion: 08/06/24 11:06 Dose: Infused Documented By: Admin: 08/06/24 09:45 Dose: 999 mls/hr Documented By: PRACHI Ioversol (Optiray 320 125ml) 120 ml IV ONCE ONE Stop: 08/06/24 10:51 Last Admin: 08/06/24 10:51 Dose: 120 ml Documented By: DAREN Ioversol (Optiray 320 100ml) 94 ml IV ONCE ONE Stop: 08/06/24 12:29 Last Admin: 08/06/24 12:28 Dose: 94 ml Documented By: JOSELITO Lorazepam (Lorazepam 2 Mg/1 Ml Vial) 0.25 mg IV NOW STA Stop: 08/06/24 09:39 Last Admin: 08/06/24 09:45 Dose: 0.25 mg Documented By: PRACHI Imaging Data Radiologist's Impression: Chest X-Ray 08/06/24 09:20 XR chest 1V portable CLINICAL HISTORY: dizziness COMPARISON STUDY: 10/01/2013 FINDINGS: Single view portable chest demonstrates slight linear streaking in the left lung base as seen through the cardiac silhouette. The lung grijalva otherwise clear allowing for low lung volumes. Cardiomegaly and mild pulmonary vascular congestion are noted. The left mainstem bronchus appears slightly elevated as an indicator of left atrial enlargement.. IMPRESSION: Nonspecific discoid atelectasis left lung base; cardiomegaly and mild pulmonary vascular congestion. ACT 112: Negative or not required by law. Electronically signed by: Naima Martinez M.D. 08/06/2024 9:[address] 08/06/24 09:38 CT OF THE HEAD WITHOUT CONTRAST CLINICAL HISTORY: dizziness COMPARISON STUDY: Head CT March 04, 2024. TECHNIQUE: Helical axial images of the head were obtained without IV contrast. Automated exposure control was utilized for the study. A dose lowering technique was utilized adhering to the principles of ALARA. FINDINGS: No acute intracranial hemorrhage, midline shift or mass effect is present. The ventricular system is unremarkable. The basal cisterns are patent. No extra-axial collections are present. There are no findings to suggest acute dural sinus thrombosis or acute territorial infarct. No significant calvarial abnormalities are present. Visualized portions of the sinuses and mastoid air cells are clear. IMPRESSION: No acute intracranial findings. ACT 112: Negative or not required by law. Electronically signed by: Teto Johnson M.D. 08/06/2024 11:02 AM Head CTA 08/06/24 09:38 CT angio head w con CLINICAL HISTORY: dizziness. Vertigo COMPARISON STUDY: None TECHNIQUE: Unenhanced axial CT scan of the brain is performed. Subsequently, following the IV administration of 120 cc of Optiray, CT angiogram of the brain was performed from the skull base to the vertex. Images are reviewed in the axial, sagittal, and coronal planes. 3-D MIPS images are created and assessed. IV contrast was administered without complication. All measurements were obtained according to NASCET criteria. A dose lowering technique was utilized adhering to the principles of ALARA. CT DOSE: 1076.58mGy*cm FINDINGS: There is no significant stenosis or occlusive disease identified. No vascular malformation or aneurysm appreciated. No definite evidence of vasculitis. There is no fluid in the mastoid air cells or the middle ear. Visualized paranasal sinuses demonstrate mild mucosal thickening in the left maxillary antrum. IMPRESSION: Negative study ACT 112: Negative or not required by law. The above report was generated using voice recognition software. It may contain grammatical, syntax or spelling errors. Electronically signed by: Naima Martinez M.D. 08/06/2024 11:06 AM Neck CTA 08/06/24 09:38 CT angio neck with con CLINICAL HISTORY: dizziness. Vertigo COMPARISON STUDY: None TECHNIQUE: Following the IV administration of 120 of Optiray, CT angiogram of the neck was performed from the aortic arch to the skull base. Images are reviewed in the axial, sagittal, and coronal planes. 3-D MIPS images are created and assessed. IV contrast was administered without complication. All measurements were calculated based on NASCET criteria. A dose lowering technique was utilized adhering to the principles of ALARA. CT DOSE: 1076.58 mGy.cm FINDINGS: There is no hemodynamically significant stenosis or occlusive disease. Calcified plaques are present in the proximal ICAs bilaterally. The vertebral arteries are of similar size. There is no evidence of dissection. Soft tissue analysis demonstrates bilateral parotid gland lymph nodes appeared is also status slightly prominent bilateral cervical lymph nodes with no evidence of matted adenopathy. There is a12 mm left sided thyroid nodule. IMPRESSION: Calcified plaques at the carotid bifurcations bilaterally. No evidence of stenosis or occlusive disease. No dissection. Left thyroid nodule. Consider elective ultrasound correlation. ACT 112: Negative or not required by law. The above report was generated using voice recognition software. It may contain grammatical, syntax or spelling errors. Electronically signed by: Naima Martinez M.D. 08/06/2024 11:14 AM Abdomen/Pelvis CT 08/06/24 11:[address] WITH IV CONTRAST CT DOSE: 1403.55 mGy.cm HISTORY: transaminitis TECHNIQUE: Multiaxial CT images of the abdomen and pelvis were performed following the IV administration of 94 cc of Optiray, sagittal and coronal reconstructions were done. A dose lowering technique was utilized adhering to the principles of ALARA. COMPARISON STUDY: None FINDINGS: There is mild hepatosplenomegaly. There is diffuse hepatic steatosis. There are no focal liver lesions identified. There is no ascites. The gallbladder is absent. The bile ducts are not dilated. There are no pancreatic, adrenal, or splenic lesions appreciated. Kidneys demonstrate no evidence of obstructive uropathy. There is no aortic aneurysm or periaortic adenopathy. No bowel obstruction or free air. No ascites. In the pelvis, the uterus is midline and normal in size. The urinary bladder is unremarkable. There is no fluid in the cul-de-sac. There is no evidence of diverticulitis. No adnexal mass. The lung bases are negative. There is degenerative disc disease at L5-S1. There is a bulging annulus at L4-5. IMPRESSION: Diffuse hepatic steatosis. Mild hepatosplenomegaly. ACT 112: Negative or not required by law. The above report was generated using voice recognition software. It may contain grammatical, syntax or spelling errors. Electronically signed by: Naima Martinez M.D. 08/06/2024 1:05 PM Discharge Plan Visit Data Chief Complaint: Vertigo Stated Complaint: VERTIGO, DEHYDRATION ED Provider: Toshia Castro Discharge Problem: Dizziness, Thrombocytopenia, Nausea & vomiting, Elevated aspartate aminotransferase level, Non-ST elevation CO (NSTEMI), Left thyroid nodule Forms Stand Alone Forms: [employer] Prescriptions Prescriptions: No Action triamterene-hydrochlorothiazid 37.5-25 mg tablet 1 tab PO HS Qty: 90 3RF atorvastatin 10 mg tablet 10 mg PO HS Qty: 90 3RF (DME) Knee immobilizer See Rx Instructions .Route .MEDSUPPLY Qty: 1 0RF Rx Instructions: As directed lorazepam 0.5 mg tablet 0.5 mg PO BID PRN (Reason: vertigo) Qty: 10 0RF meclizine 25 mg tablet See Rx Instructions PO TID PRN (Reason: dizziness) Qty: 60 0RF Rx Instructions: 1 or 2 orally three times a day PRN; potassium 99 mg Tablet 99 mg PO HS Rx Instructions: Unable to verify OTC meds at this date/time. methotrexate sodium 2.5 mg tablet 15 mg PO WK folic acid 1 mg tablet 1 mg PO DAILY Referrals Referrals: Lora Lawton CRNP [Primary Care Provider] -
--- NOTE | 2024-08-06 09:52 | XRay Report ---
XR chest 1V portable CLINICAL HISTORY: dizziness COMPARISON STUDY: 10/01/2013 FINDINGS: Single view portable chest demonstrates slight linear streaking in the left lung base as se en through the cardiac silhouette. The lung grijalva otherwise clear allowing for low lung volumes. Car diomegaly and mild pulmonary vascular congestion are noted. The left mainstem bronchus appears slight ly elevated as an indicator of left atrial enlargement.. IMPRESSION: Nonspecific discoid atelectasis left lung base; cardiomegaly and mild pulmonary vascular congestion. ACT 112: Negative or not required by law. Electronically signed by: Naima Martinez M.D. 08/06/2024 9:51 AM
[2024-08-06 10:20] LABS: INR 0.9 (0.9-1.1); Prothrombin Time 10.3 Seconds (9.0-12.0)
[2024-08-06 10:23] LABS: Albumin Globulin Ratio 1.5 (0.9-2); Albumin Level 3.4 gm/dl (3.4-5.0); BUN Creatinine Ratio 19.1 (10-20); Bilirubin,Total 0.3 mg/dl (0.2-1.0); Calcium 8.2 mg/dl (8.6-10.3); Creatinine Clr Calc Pharmacy 49.4 ml/min; Globulin 2.3 gm/dl (2.5-4.0); Magnesium 1.8 mg/dl (1.7-2.4); Potassium 3.8 mmol/L (3.5-5.1); Total Protein 5.7 gm/dl (6.0-8.3)
[2024-08-06 10:29] LABS: Troponin I High Sensitivity 36.1 pg/ml (0-14)
[2024-08-06 10:39] LABS: Thyroid Stimulating Hormone 5.068 uIu/ml (0.300-4.500)
[2024-08-06 10:45] LABS: Adenovirus PCR Not Detected (NotDetected); Bordetella parapertussis PCR Not Detected (NotDetected); Bordetella pertussis PCR Not Detected (NotDetected); Chlamydia pneumoniae PCR Not Detected (NotDetected); Coronavirus 229E PCR Not Detected (NotDetected); Coronavirus CoV-2 (COVID19)PCR Not Detected (NotDetected); Coronavirus HKU1 PCR Not Detected (NotDetected); Coronavirus NL63 PCR Not Detected (NotDetected); Coronavirus OC43PCR Not Detected (NotDetected); Human Metapneumovirus PCR Not Detected (NotDetected); Influenza A PCR Not Detected (NotDetected); Influenza B PCR Not Detected (NotDetected); Mycoplasma pneumoniae PCR Not Detected (NotDetected); Parainfluenza Virus 1 PCR Not Detected (NotDetected); Parainfluenza Virus 2 PCR Not Detected (NotDetected); Parainfluenza Virus 3 PCR Not Detected (NotDetected); Parainfluenza Virus 4 PCR Not Detected (NotDetected); Respiratory Syncytial VirusPCR Not Detected (NotDetected); Rhinovirus/Enterovirus PCR Not Detected (NotDetected)
[2024-08-06] MEDS: OPTIRAY 320 125ml IV ONE (10:51)
--- NOTE | 2024-08-06 11:03 | CT Scan Report ---
CT OF THE HEAD WITHOUT CONTRAST CLINICAL HISTORY: dizziness COMPARISON STUDY: Head CT March 04, 2024. TECHNIQUE: Helical axial images of the head were obtained without IV contrast. Automated exposure con trol was utilized for the study. A dose lowering technique was utilized adhering to the principles o f ALARA. FINDINGS: No acute intracranial hemorrhage, midline shift or mass effect is present. The ventricular system is unremarkable. The basal cisterns are patent. No extra-axial collections are present. There are no findings to suggest acute dural sinus thrombosis or acute territorial infarct. No significant calvarial abnormalities are present. Visualized portions of the sinuses and mastoid air cells are alec ar. IMPRESSION: No acute intracranial findings. ACT 112: Negative or not required by law. Electronically signed by: Teto Johnson M.D. 08/06/2024 11:02 AM
--- NOTE | 2024-08-06 11:09 | CT Scan Report ---
CT angio head w con CLINICAL HISTORY: dizziness. Vertigo COMPARISON STUDY: None TECHNIQUE: Unenhanced axial CT scan of the brain is performed. Subsequently, following the IV adminis tration of 120 cc of Optiray, CT angiogram of the brain was performed from the skull base to the vert ex. Images are reviewed in the axial, sagittal, and coronal planes. 3-D MIPS images are created and a ssessed. IV contrast was administered without complication. All measurements were obtained according to NASCET criteria. A dose lowering technique was utilized adhering to the principles of ALARA. CT DOSE: 1076.58mGy*cm FINDINGS: There is no significant stenosis or occlusive disease identified. No vascular malformation or aneurysm appreciated. No definite evidence of vasculitis. There is no fluid in the mastoid air jenny ls or the middle ear. Visualized paranasal sinuses demonstrate mild mucosal thickening in the left ma xillary antrum. IMPRESSION: Negative study ACT 112: Negative or not required by law. The above report was generated using voice recognition software. It may contain grammatical, syntax o r spelling errors. Electronically signed by: Naima Martinez M.D. 08/06/2024 11:06 AM
[2024-08-06 11:12] LABS: T4 Free Thyroxine 0.89 ng/dl (0.61-1.60)
--- NOTE | 2024-08-06 11:17 | CT Scan Report ---
CT angio neck with con CLINICAL HISTORY: dizziness. Vertigo COMPARISON STUDY: None TECHNIQUE: Following the IV administration of 120 of Optiray, CT angiogram of the neck was performed from the aortic arch to the skull base. Images are reviewed in the axial, sagittal, and coronal plane s. 3-D MIPS images are created and assessed. IV contrast was administered without complication. All m easurements were calculated based on NASCET criteria. A dose lowering technique was utilized adherin g to the principles of ALARA. CT DOSE: 1076.58 mGy.cm FINDINGS: There is no hemodynamically significant stenosis or occlusive disease. Calcified plaques ar e present in the proximal ICAs bilaterally. The vertebral arteries are of similar size. There is no e vidence of dissection. Soft tissue analysis demonstrates bilateral parotid gland lymph nodes appeared is also status slightl y prominent bilateral cervical lymph nodes with no evidence of matted adenopathy. There is a12 mm lef t sided thyroid nodule. IMPRESSION: Calcified plaques at the carotid bifurcations bilaterally. No evidence of stenosis or occ lusive disease. No dissection. Left thyroid nodule. Consider elective ultrasound correlation. ACT 112: Negative or not required by law. The above report was generated using voice recognition software. It may contain grammatical, syntax o r spelling errors. Electronically signed by: Naima Martinez M.D. 08/06/2024 11:14 AM
[2024-08-06 11:20] LABS: Hematocrit (blood only) 39.2 % (37.0-47.0); Hemoglobin 12.6 g/dl (12.0-16.0); Mean Corpuscular Hemoglobin 28.6 pg (25.0-34.0); Mean Corpuscular Hgb Conc 32.1 g/dL (32.0-36.0); Mean Corpuscular Volume 89.1 fL (80.0-100.0); Mean Platelet Volume 11.3 fL (9.4-12.4); Platelet Count 91 K/uL (130-400); RDW Coefficient of Variation 14.9 % (11.5-14.5); RDW Standard Deviation 49.3 fL (36.4-46.3)
[2024-08-06 11:22] LABS: Basophils # (auto) 0.01 K/uL (0.00-0.20); Basophils % (auto) 0.6 %; Eosinophils # (auto) 0.01 K/uL (0.00-0.50); Eosinophils % (auto) 0.6 %; Immature Granulocytes # (auto) 0.01 K/uL (0.01-0.20); Immature Granulocytes % (auto) 0.6 %; Lymphocytes # (auto) 0.33 K/uL (1.20-3.40); Lymphocytes % (auto) 18.3 %; Monocytes # (auto) 0.09 K/uL (0.11-0.59); Neutrophils # (auto) 1.35 K/uL (1.40-6.50); Neutrophils % (auto) 74.9 %; Platelet Estimate Decreased (Normal)
--- NOTE | 2024-08-06 11:59 | Electrocardiogram Report ---
Test Reason : Blood Pressure : */* mmHG Vent. Rate : 85 BPM Atrial Rate : 85 BPM P-R Int : 134 ms QRS Dur : 84 ms QT Int : 362 ms P-R-T Axes : 42 2 8 degrees QTcB Int : 430 ms Normal sinus rhythm Poor R wave progression, consider anterior [place] vs. lead placement vs. LVH Abnormal ECG Confirmed by Yogesh Brandon ([id number]) on 08/06/2024 11:58:39 AM Referred By: REFERRED SELF Confirmed By: Yogesh Brandon
[2024-08-06] MEDS: OPTIRAY 320 100ml IV ONE (12:28)
--- NOTE | 2024-08-06 13:08 | CT Scan Report ---
ABDOMEN AND PELVIS CT WITH IV CONTRAST CT DOSE: 1403.55 mGy.cm HISTORY: transaminitis TECHNIQUE: Multiaxial CT images of the abdomen and pelvis were performed following the IV administrat ion of 94 cc of Optiray, sagittal and coronal reconstructions were done. A dose lowering technique wa s utilized adhering to the principles of ALARA. COMPARISON STUDY: None FINDINGS: There is mild hepatosplenomegaly. There is diffuse hepatic steatosis. There are no focal li jeaneth lesions identified. There is no ascites. The gallbladder is absent. The bile ducts are not dilate d. There are no pancreatic, adrenal, or splenic lesions appreciated. Kidneys demonstrate no evidence of obstructive uropathy. There is no aortic aneurysm or periaortic adenopathy. No bowel obstruction or free air. No ascites. In the pelvis, the uterus is midline and normal in size. The urinary bladder is unremarkable. There i s no fluid in the cul-de-sac. There is no evidence of diverticulitis. No adnexal mass. The lung bases are negative. There is degenerative disc disease at L5-S1. There is a bulging annulus at L4-5. IMPRESSION: Diffuse hepatic steatosis. Mild hepatosplenomegaly. ACT 112: Negative or not required by law. The above report was generated using voice recognition software. It may contain grammatical, syntax o r spelling errors. Electronically signed by: Naima Martinez M.D. 08/06/2024 1:05 PM
[2024-08-06 13:54] LABS: Appearance Urine Clear (Clear); Bacteria Urine Automated None Seen (None Seen); Bilirubin Urine Negative (Negative); Blood Urine 1+ (Negative); Cast Urine Automated 0-2 /lpf (0-2); Color Urine Yellow; Epithelial Cell Urine Auto 0-2 /hpf (0-2); Glucose Urine UA Negative (Negative); Ketones Urine Negative (Negative); Leukocyte Esterase Urine Negative (Negative); Nitrite Urine Negative (Negative); Protein Urine Trace (Negative); RBC Urine Automated 0-2 /hpf (0-2); Specific Gravity Urine > 1.045 (1.000-1.030); Urobilinogen Urine Negative (Negative); WBC Urine Automated 0-5 /hpf (0-5)
--- NOTE | 2024-08-06 14:09 | History & Physical Report ---
Date of Service August 06, 2024 Assessment & Plan (1) Transaminitis: (2) Vertigo: (3) Elevated troponin: (4) Acute diarrhea: (5) Left thyroid nodule: (6) Rhabdomyolysis: Plan Patient is a 69-year-old female with past medical history of rheumatoid arthritis on methotrexate, osteopenia, hypertension, hyperlipidemia. She presented to the ED due to 2 days of continuous vertigo, nausea, vomiting, and diarrhea. She is being admitted due to uncontrollable vertigo and transamini tis. #transaminitis AST 614, ALT 266, bilirubin and alk phos WNL History of cholecystectomy CTAP showed diffuse hepatic steatosis, hepatosplenomegaly recent acetaminophen use (4 extra strength a day x 3 days) bio fire negative, TSH WNL denies chronic alcohol use Monospot, acetaminophen, hepatitis panel ordered If above tests give no diagnosis, could consider tickborne panel and iron panel Hold statin- has been on for multiple years and unlikely to cause Associated abnormal labs show decreased platelet count (91), leukopenia (1.80), hypocalcemia (8.2) trend CMP #vertigo suspect 2/2 cause of transaminitis above however differential still includes CVA Head CT, head CTA, neck CTA negative no other neurologic symptoms, low suspicion for CVA on admission; defer MRI at this time - does not have pacemaker if MRI needs to be obtained Ativan 0.5 Mg IV as needed for vertigo Zofran IV every 6 as needed for nausea and vomiting neurochecks q4h - consider MRI if change in neurologic status fall and aspiration precautions decreased PO intake, soft pressures on admission (115/73) - 1L NSS bolus in ed, follow with 1L NSS at 80ml/hr overnight #elevated troponin 36.1 ->34.7 EKG NSR, no ischemic changes does endorse bilateral chest pain with deep breaths, dull and achy HR stable, 82 on admission Mg 1.8, K+ 3.8 - will optimize - 1gm IV mag and 20 meq PO KCl ordered trend troponin and monitor on tele EKG prn with chest pain #diarrhea stool cultures ordered contributing to fluid depletion - IVF as above left thyroid nodule seen on neck CTA consider ultrasound in outpatient setting with PCP Chronic stable diagnoses: RA - continue methotrexate on Sunday HTN/edema - hold triamterene HCTZ in setting of decreased PO intake HLD - holding statin VTE ppx: SCDs, low risk Diet: clears, advance as tolerated with nausea Dispo: med/tele Admission and Anticipated Discharge Date Admission Date: 08/06/24 History of Present Illness Chief Complaint: vertigo Primary Care Provider: JADON Winter Patient is a 69-year-old female with past medical history of rheumatoid arthritis on methotrexate, osteopenia, hypertension, hyperlipidemia. She presented to the ED due to 2 days of continuous vertigo, nausea, vomiting, and diarrhea. She is being admitted due to uncontrollable vertigo and transaminitis. Patient seen at bedside with her family present (, granddaughter, son, daughter). She stated that 2 days ago she developed vertigo that has been continuous and worsens with head movements. The only thing that relieves the vertigo is if she is laying flat with a cold washcloth on her face in a dark room, with no noise. She also endorses associated headache. She stated it makes her nauseous and she has vomited 1-3 times. She also endorses roughly 4 episodes of diarrhea over the past 2 days, she denies any recent antibiotic use. She stated she has bodyaches and overall feels unwell. She is also had a decreased p.o. intake due to the vertigo, and endorses dry mouth. She feels weak. She also endorses intermittent bilateral chest pain that increases when she is breathing heavily. She stated she has taken roughly 4 extra strength Tylenol a day for the past 3 days to try to help with the headache. Her vertigo was unrelieved with her home meclizine. She also took a couple prednisone yesterday which she has as needed for rheumatoid arthritis. She uses methotrexate on Fridays and has been on this for 5 to 6 years. She has been on atorvastatin for roughly 3 years. She has had no recent medication changes. She denies any tick bites or history of Lyme's. Patient denies fever, chills, rhinorrhea, sore throat, cough, sputum production, dyspnea, abdominal pain, numbness, tingling. She does not use nicotine products or drink alcohol. She denies past history of CVA, DM, previous VTE. Her dad had a history of CVA in his 80s. She herself has never had a history of CVA. She takes all of her home medications at night and did take them last night. She wishes to be full code after discussion with her and her family. Her vertigo was slightly improved with 0.25 Mg Ativan in ED. She feels as though she could tolerate a clear diet. Allergies Allergy/AdvReac Type Severity Reaction Status Date / Time acetylcysteine Allergy Severe Throat Verified 08/06/24 12:18 Swelling, Cough, Dry Mouth, Itching Home Medications Medication Instructions Recorded Confirmed Type potassium 99 mg tablet 99 mg PO HS 03/08/20 08/06/24 History Knee immobilizer #1 ea 06/22/23 10/26/23 Rx atorvastatin 10 mg tablet 10 mg PO HS #90 tabs 08/20/23 08/06/24 Rx triamterene 37.5 1 tab PO HS #90 tabs 08/20/23 08/06/24 Rx mg-hydrochlorothiazide 25 mg tablet lorazepam 0.5 mg tablet 0.5 mg PO BID PRN vertigo #10 tabs 02/29/24 08/06/24 Rx meclizine 25 mg tablet See Rx Instructions PO TID PRN 02/29/24 08/06/24 Rx dizziness #60 tabs folic acid 1 mg tablet 1 mg PO DAILY 08/06/24 08/06/24 History methotrexate sodium 2.5 mg tablet 15 mg PO WK 08/06/24 08/06/24 History Past Med/Surg History Problem List (Updated 08/07/24 @ 10:35 by Manish Gabriel MD) Rhabdomyolysis Acute diarrhea Elevated troponin Transaminitis Left thyroid nodule (Acute) Non-ST elevation [place] (NSTEMI) (Acute) Elevated aspartate aminotransferase level (Acute) Nausea & vomiting (Acute) Thrombocytopenia (Acute) Dizziness (Acute) Blurry vision, bilateral Nausea in adult Unsteady gait when walking Frontal headache Fatigue Vertigo Acute medial meniscal tear Closed fibular fracture (~06/15/23) Tibial plateau fracture, left (~06/15/23) Swelling of left lower extremity Knee pain, left Vitamin D3 deficiency Screening for heart disease Osteopenia Rheumatoid arthritis Esophageal reflux (Acute) Hypertension Hyperlipidemia Peripheral edema (Chronic) Medical History Erythema migrans (Lyme disease) 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 History of colon polyps Nausea and vomiting after administration of anesthetic agent Rheumatoid arthritis History of kidney stones Tylenol overdose (07/10/14) Hepatitis Surgical History History of cystoscopy History of colonoscopy with polypectomy History of wisdom tooth extraction Hx of cholecystectomy H/O tubal ligation Family History Mother Diabetes Hypertension Father Diabetes Lung cancer Stroke Grandmother Diabetes Grandfather Diabetes Daughter Family history of reaction to anesthesia nausea/vomiting Denies family history of Ovarian cancer Prostate cancer Breast cancer Social History Smoking Status: Never smoker Second Hand Exposure: Yes (father smoked/ smoked); Do You Dip or Chew Tobacco: No; Hx Alcohol Use: No Hx Substance Use: No Preferred Language: Beninese Communication Ability: Effective Visual Impairment: Limited Hearing Ability: Normal Health Information Tech Required: No Beliefs That Will Affect Care: None marital status: Current Living Situation: Spouse current occupational status: retired 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 How many Children do You have: 5 Other Information That Helps Us Care for You: No Feels Safe at Home: Yes Safety Concerns: Feels Safe At This Time Childhood Exposure to Second-Hand Smoke: Yes Diet: regular caffeine: Yes (tea and soda) during the past year weight has: remained stable Dental Care, Regularly: Yes Physical Activity Frequency: Daily Seatbelt Use: always Sunscreen Use: Yes ("sometimes") Do you think of yourself as: straight/heterosexual Gender Identity: Female Assistive Devices: None Review of Systems Review of Systems: See HPI Physical Exam Physical Exam: The patient is awake, alert and oriented 3, well developed and well nourished, normocephalic and atraumatic, in no acute distress. Non-toxic appearing. HEENT- EOMI, mucous membranes dry. Hearing grossly intact. Heart-normal S1 and S2. No murmurs, rubs or gallops. Lungs-clear bilaterally, no respiratory distress, no accessory muscle use. Abdomen-normal bowel sounds and soft. No ascites noted. Non-tender. Extremities- no clubbing, cyanosis, or edema. Rheumatologic-normal range of motion. Psychiatric-normal affect. Eyes: PERRL, conjunctivae normal, anicteric sclerae No nystagmus Neurologic: PERRL, EOMI, accommodation nl, no face palsy, no dysarthria no focal motor deficits Speech / Cognition: normal speech Results & Data Results & Data Vital Signs (Past 12 Hours) Vital Signs Temp Pulse Pulse Resp BP BP Pulse Ox 08/06/24 12:46 75 14 130/81 93 08/06/24 11:44 76 16 122/71 93 08/06/24 10:15 77 14 95/59 L 91 08/06/24 09:16 80 08/06/24 08:50 36.8 C 82 18 110/71 95 O2 Del Method 08/06/24 12:46 Room Air 08/06/24 11:44 Room Air 08/06/24 10:15 Room Air 08/06/24 09:16 08/06/24 08:50 Room Air Laboratory Results Reviewed CBC, PT/INR, CMP, TSH, bio fire, UA, troponin, mag Diagnostic Findings Reviewed CXR, head CT, head CTA, neck CTA, abdomen pelvis CT Medications Administered ED0.25 Mg IV Ativan, 1L NSS bolus ECG Additional Comments: NSR Rate 85 QTc 430 Code Status & VTE Plan Code Status full code VTE Prophylaxis Plan VTE Prophylaxis will be ordered: Yes Supervising Physician Co-Signing Physician Notes I personally saw and examined the patient. I independently reviewed the labs, EKG, imaging, problem list, medication list, past medical history and family history. I verified all peter points and agree with Larisa Longoria PA-C with the following exceptions and/or additions: 69-year-old female presents to the ER with 1 week of generalized illness with headache, body aches and decreased energy with reduced coordination. 2 days ago she developed vertigo which is not unusual for her but the duration of her symptoms is. No neck stiffness. Prefers to be in the dark but no severe light sensitivity. O/E HS RRR, no murmurs, Chest CTAB, Abdo SNT, no neck stiffness, no unilateral weakness/numbness, normal speech exam A/P Vertigo - suspect related to her acute viral illness, MRI brain to r/o CVA given negative testing so far, switch lorazepam to diazepam for vertigo symptoms Transaminitis / rhabdomyolysis - CK added after seeing the patient, possibly transaminitis just related to this, EBV/monospot negative, consider HIV will increased NSS to 150ml/hr and repeat levels in AM, hold statin Leukopenia and thrombocytopenia - point towards viral etiology as cause of her symptoms but will get procalcitonin and blood cultures to rule out bacterial etiology. Anaplasmosis and babesiosis labs also sent although this appears to be unlikely given the time of year. Consider LP if symptoms continuing without definitive cause with immunosuppressed state on methotrexate. Hold methotrexate (next due on Sunday) PG Care Time/CCT Total # of Minutes Spent Total Time Spent with Patient: Total time spent is greater than 50% in coordination of care (as documented) at patient's floor/unit and/or counseling patient: Coding Level of Care Code 18687 INT INP/OBS CARE 3/75MIN Diagnoses Transaminitis R74.01 Vertigo R42 Elevated troponin R79.89 Acute diarrhea R19.7 Left thyroid nodule E04.1 Rhabdomyolysis M62.82
[2024-08-06] MEDS ORDERED: ONDANSETRON INJ 2 MG/ML 2 ML VIAL IV PRN (14:29)
[2024-08-06] MEDS ORDERED: LORazepam 2 MG/1 ML VIAL IV PRN (14:29)
[2024-08-06] MEDS: SODIUM CHLORIDE 0.9% 1,000 ML IV SCH ×2 (14:43→23:32)
[2024-08-06] MEDS: MAGNESIUM SULFATE / D5W 1 GM/100 ML BAG IV ONE (15:19)
[2024-08-06] MEDS: POTASSIUM CHLORIDE CRTAB 20 MEQ TABCR PO STA (15:19)
[2024-08-06 16:35] LABS: Hep C Ab Rflx HepCQuant RNA Negative (Negative)
[2024-08-06 18:07] LABS: Hep B Surface Ag with confirm Negative (Negative)
[2024-08-06] MEDS ORDERED: ACETAMINOPHEN 325 MG TAB PO PRN (18:20)
[2024-08-06 19:28] LABS: Troponin I High Sensitivity 38.3 pg/ml (0-14)
[2024-08-06 20:07] LABS: EBV Nuclear Antigen IgG Ab Positive; EBV Nuclear Antigen IgG Quant 76.5 U/mL (< 18.0)
[2024-08-06 20:09] LABS: EBV IgM Quant < 10.0 U/mL (< 36.0)
[2024-08-06] MEDS: MELATONIN 3 MG TAB PO PRN (20:19)
[2024-08-06 21:41] LABS: C Reactive Protein 1.43 mg/dl (0-0.5)
[2024-08-06] MEDS: diazePAM 2 MG TABLET PO PRN (21:51)
[2024-08-06] MEDS ORDERED: oxyCODONE HCL IR 5 MG TAB (IMMEDIATE RELEASE) PO PRN (21:53)
--- NOTE | 2024-08-07 00:02 | Magnetic Resonance Report ---
Exam(s): MRI HEAD Without Contrast EXAM: MR Head Without Intravenous Contrast CLINICAL HISTORY: Reason for exam: headache, loss of co-ordination, vertigo. TECHNIQUE: Magnetic resonance images of the head/brain without intravenous contrast in multiple planes. COMPARISON: CT brain and CTA head: 08/06/2024 FINDINGS: Brain: Unremarkable. No mass. No hemorrhage. No acute infarct. Ventricles: Unremarkable. No ventriculomegaly. Bones/joints: Unremarkable. No acute fracture. Sinuses: Unremarkable as visualized. No acute sinusitis. Mastoid air cells: Unremarkable as visualized. No mastoid effusion. Orbits: Unremarkable as visualized. IMPRESSION: No acute intracranial abnormality. Electronically signed by: Kenny Medeiros MD 08/07/24 00:01 AM
[2024-08-07 06:50] LABS: Albumin Globulin Ratio 1.3 (0.9-2); Albumin Level 2.9 gm/dl (3.4-5.0); BUN Creatinine Ratio 18.7 (10-20); Bilirubin,Total 0.3 mg/dl (0.2-1.0); Calcium 7.4 mg/dl (8.6-10.3); Creatinine Clr Calc Pharmacy 77.2 ml/min; Globulin 2.3 gm/dl (2.5-4.0); Magnesium 1.9 mg/dl (1.7-2.4); Potassium 3.9 mmol/L (3.5-5.1); Total Protein 5.2 gm/dl (6.0-8.3)
[2024-08-07 07:01] LABS: Hematocrit (blood only) 35.1 % (37.0-47.0); Hemoglobin 11.6 g/dl (12.0-16.0); Mean Corpuscular Hemoglobin 29.2 pg (25.0-34.0); Mean Corpuscular Volume 88.4 fL (80.0-100.0); Platelet Count 76 K/uL (130-400); RDW Coefficient of Variation 15.1 % (11.5-14.5); RDW Standard Deviation 48.7 fL (36.4-46.3); Red Blood Count 3.97 M/uL (4.20-5.40); White Blood Count 1.44 K/ul (4.8-10.8)
[2024-08-07 07:03] LABS: Eosinophils # (auto) 0.01 K/uL (0.00-0.50); Eosinophils % (auto) 0.7 %; Immature Granulocytes # (auto) 0.01 K/uL (0.01-0.20); Immature Granulocytes % (auto) 0.7 %; Lymphocytes # (auto) 0.34 K/uL (1.20-3.40); Lymphocytes % (auto) 23.6 %; Monocytes % (auto) 6.9 %; Neutrophils # (auto) 0.98 K/uL (1.40-6.50); Neutrophils % (auto) 68.1 %
[2024-08-07 07:05] LABS: Agglutinated RBC 1+
[2024-08-07] MEDS ORDERED: methylPREDNISolone 10 mg/mL (For Ped Dose < 7mg) IV SCH (07:55)
[2024-08-07] MEDS: MECLIZINE HCL 25 MG TAB PO SCH (09:15)
[2024-08-07] MEDS: methylPREDNISolone 60 MG in SYRINGE 0 ML IV SCH (09:16)
--- NOTE | 2024-08-07 12:34 | Hospitalist Progress Note ---
Date of Service August 07, 2024 Assessment & Plan (1) Transaminitis: Plan: Appears to be due to statin toxicity and acute viral illness. Will follow. Parenteral steroid therapy should help (2) Vertigo: Plan: Appears to be due to acute viral labyrinthitis. Scheduled meclizine ordered along with parenteral steroid therapy. (3) Statin-induced myositis: Plan: Most likely cause of elevated CK levels. Parenteral steroid therapy should help. Serial labs (4) Viral illness: Plan: Likely cause of acute labyrinthitis and vertigo. Probably causing the pancytopenia to. Supportive care. IV fluids. Parenteral steroid therapy. (5) Volume depletion: Plan: Present on admission. Continue IV fluids. Monitor intake and output (6) Elevated troponin: Plan: Denies chest pain. No acute EKG changes. Will follow. Telemetry (7) Rheumatoid arthritis: Plan: The patient takes methotrexate chronically. (8) Hypertension: Plan: Diuretic is on hold due to volume depletion. Will follow Plan Hopeful discharge to home within the next 2 to 3 days Admission and Anticipated Discharge Date Admission Date: August 06, 2024 Subjective Alert and oriented. No distress. is at the bedside. I spoke to her daughter by phone. It appears she has 2 separate problems going on. She has what appears to be an acute viral illness causing acute viral labyrinthitis resulting in vertigo. She also appears to have statin induced toxicity resulting in elevated liver enzymes and elevated CK. Statin has been discontinued. She is now on parenteral steroid therapy along with scheduled meclizine. Continue IV fluids for apparent volume depletion. Serial labs ordered. Diet has been advanced Review of Systems 2 Review of Systems: Constitutionalshe denies fever or chills ENTno blurred vision, no double vision, no epistaxis, no sore throat Respiratoryno cough, no wheezing, no shortness of breath Cardiacno palpitations, no chest pain, no syncope Ruel nausea, vomiting, diarrhea, melena, hematochezia GUno urinary retention, no urinary incontinence, no dysuria, no hematuria Musculoskeletaldiffuse myalgias and weakness. Skinno bruising, no rashes, no pruritus Neurono isolated weakness, no paresthesia. She does have vertigo Psychno depression, no anxiety Physical Exam 2 Physical Exam: General-alert and oriented x3, no fever, no chills HEENT-head atraumatic and normocephalic, pupils equal and reactive to light, extraocular muscles intact Neck-no lymphadenopathy or thyromegaly, trachea midline Chest-clear to auscultation. No rales, wheezing or rhonchi Cardiac-regular rate and rhythm, normal S1 and S2 Abdomen-normal bowel sounds, no hepatosplenomegaly Extremities-no cyanosis, clubbing, or edema Neuro-cranial nerves II through XII intact, motor and sensory function within normal limits, strength symmetrical, no focal deficits. Vertigo with movement Psych-normal affect, normal mood Results & Data Results & Data Vital Signs (Past 12 Hours) Vital Signs Temp Pulse Resp BP Pulse Ox O2 Del Method O2 Flow Rate 08/07/24 11:46 37.5 C 60 20 133/66 96 Nasal Cannula 1 08/07/24 08:00 37.5 C 85 16 106/66 94 Nasal Cannula 1 08/07/24 02:00 37.2 C 87 16 105/65 97 Room Air Laboratory Results 08/07/24 05:32 08/07/24 05:32 PG Care Time/CCT Total # of Minutes Spent Total Time Spent with Patient: Total time spent is greater than 50% in coordination of care (as documented) at patient's floor/unit and/or counseling patient: Coding Level of Care Code 88150 SUB INP/OBS CARE 3/50MIN Diagnoses Transaminitis R74.01 Vertigo R42 Statin-induced myositis M60.9; T46.6X5A Viral illness B34.9 Volume depletion E86.9 Elevated troponin R79.89 Rheumatoid arthritis M06.9 Primary hypertension I10 Hypertension type: primary hypertension (8) Hypertension Hypertension type: primary hypertension Qualified Code(s): I10 - Essential (primary) hypertension
[2024-08-07 15:11] LABS: A calco-baum cmplx NotReported Not Detected (NotDetected); Bact fragilis Not Reported Not Detected (NotDetected); Blood Culture Id Panel See PCR Comment (NotDetected); C auris Not Reported Not Detected (NotDetected); Calbicans Not Reported Not Detected (NotDetected); Candida glabrata Not Reported Not Detected (NotDetected); Candida krusei Not Reported Not Detected (NotDetected); Cneoformans/gatti Not Reported Not Detected (NotDetected); Cparapsilosis Not Reported Not Detected (NotDetected); E cloacae compx Not Reported Not Detected (NotDetected); Efaecalis Not Reported Not Detected (NotDetected); Efaecium Not Reported Not Detected (NotDetected); Enterobacterales Not Reported Not Detected (NotDetected); Escherichia coli Not Reported Not Detected (NotDetected); H influenzae Not Reported Not Detected (NotDetected); K aerogenes Not Reported Not Detected (NotDetected); Koxytoca Not Reported Not Detected (NotDetected); Kpneumoniae grp Not Reported Not Detected (NotDetected); Lmonocyt Not Reported Not Detected (NotDetected); N meningitidis Not Reported Not Detected (NotDetected); P aeruginosa Not Reported Not Detected (NotDetected); Proteus spp Not Reported Not Detected (NotDetected); Salmonella spp Not Reported Not Detected (NotDetected); Staph lugdunensis Not Reported Not Detected (NotDetected); Staph spp. Not Reported DETECTED (NotDetected); Staphaureus Not Reported DETECTED (NotDetected); Staphepi Not Reported DETECTED (NotDetected); Staphylococcus spp. DETECTED (NotDetected); Stenmaltophilia Not Reported Not Detected (NotDetected); Strep agal(GrpB) Not Reported Not Detected (NotDetected); Strep pneum Not Reported Not Detected (NotDetected); Strep pyog (GrpA) Not Reported Not Detected (NotDetected); Strep spp Not Reported Not Detected (NotDetected); mecAC Resistant Gene Not Detected (NotDetected); mecAC+MREJ Resistant Gene MRSA Not Detected (NotDetected)
[2024-08-07 15:24] LABS: Staphylococcus epidermidis DETECTED (NotDetected)
[2024-08-08 07:26] LABS: BUN Creatinine Ratio 18.9 (10-20); Calcium 7.6 mg/dl (8.6-10.3); Creatinine Clr Calc Pharmacy 78.4 ml/min; Potassium 4.5 mmol/L (3.5-5.1)
[2024-08-08 07:32] LABS: Hematocrit (blood only) 35.4 % (37.0-47.0); Hemoglobin 11.4 g/dl (12.0-16.0); Mean Corpuscular Hemoglobin 28.4 pg (25.0-34.0); Mean Corpuscular Hgb Conc 32.2 g/dL (32.0-36.0); Mean Corpuscular Volume 88.3 fL (80.0-100.0); Mean Platelet Volume 11.5 fL (9.4-12.4); Platelet Count 61 K/uL (130-400); RDW Standard Deviation 48.4 fL (36.4-46.3); Red Blood Count 4.01 M/uL (4.20-5.40); White Blood Count 2.17 K/ul (4.8-10.8)
[2024-08-08 07:42] LABS: Albumin Globulin Ratio 1.2 (0.9-2); Albumin Level 2.8 gm/dl (3.4-5.0); Bilirubin,Total 0.3 mg/dl (0.2-1.0); Globulin 2.4 gm/dl (2.5-4.0); Total Protein 5.2 gm/dl (6.0-8.3)
[2024-08-08 07:52] VITALS: RESP 18
[2024-08-08 07:59] LABS: Immature Granulocytes # (auto) 0.01 K/uL (0.01-0.20); Immature Granulocytes % (auto) 0.5 %; Lymphocytes # (auto) 0.61 K/uL (1.20-3.40); Lymphocytes % (auto) 28.1 %; Monocytes # (auto) 0.17 K/uL (0.11-0.59); Monocytes % (auto) 7.8 %; Neutrophils # (auto) 1.38 K/uL (1.40-6.50); Neutrophils % (auto) 63.6 %
[2024-08-08] MEDS ORDERED: metHOTREXate sodium 2.5 MG TAB PO SCH (09:00)
[2024-08-08 10:58] VITALS: BP 112/72; TEMP 98.6; O2SAT 96
--- NOTE | 2024-08-08 11:00 | Hospitalist Progress Note ---
Date of Service August 08, 2024 Assessment & Plan (1) Transaminitis: Plan: Appears to be due to statin toxicity and acute viral illness. Will follow. Parenteral steroid therapy should help (2) Vertigo: Plan: Appears to be due to acute viral labyrinthitis. Scheduled meclizine ordered along with parenteral steroid therapy. (3) Statin-induced myositis: Plan: Most likely cause of elevated CK levels. Parenteral steroid therapy should help. Serial labs (4) Viral illness: Plan: Likely cause of acute labyrinthitis and vertigo. Probably causing the pancytopenia to. Supportive care. IV fluids. Parenteral steroid therapy. (5) Volume depletion: Plan: Present on admission. Continue IV fluids. Monitor intake and output (6) Elevated troponin: Plan: Denies chest pain. No acute EKG changes. Will follow. Telemetry (7) Rheumatoid arthritis: Plan: The patient takes methotrexate chronically. (8) Hypertension: Plan: Diuretic is on hold due to volume depletion. Will follow Plan Hopeful discharge to home within the next 2 to 3 days Admission and Anticipated Discharge Date Admission Date: August 06, 2024 Fco Ortega is a pleasant 69 yo F who was seen today for Results & Data Results & Data Vital Signs (Past 12 Hours) Vital Signs Temp Pulse Pulse Resp BP Pulse Ox O2 Del Method 08/08/24 07:51 36.4 C 70 18 100/65 97 Nasal Cannula 08/08/24 07:00 59 L 08/08/24 03:48 36.8 C 70 20 121/75 99 Nasal Cannula 08/07/24 23:32 36.8 C 67 18 121/86 98 Nasal Cannula O2 Flow Rate 08/08/24 07:51 3 08/08/24 07:00 08/08/24 03:48 2 08/07/24 23:32 2 PG Care Time/CCT Total # of Minutes Spent Total Time Spent with Patient: Total time spent is greater than 50% in coordination of care (as documented) at patient's floor/unit and/or counseling patient: Coding Diagnoses Transaminitis R74.01 Vertigo R42 Statin-induced myositis M60.9; T46.6X5A Viral illness B34.9 Volume depletion E86.9 Elevated troponin R79.89 Rheumatoid arthritis M06.9 Primary hypertension I10 Hypertension type: primary hypertension (8) Hypertension Hypertension type: primary hypertension Qualified Code(s): I10 - Essential (primary) hypertension
--- NOTE | 2024-08-08 11:27 | Discharge Summary ---
Date of Service August 08, 2024 Admission HPI Per Admitting Provider Patient is a 69-year-old female with past medical history of rheumatoid arthritis on methotrexate, osteopenia, hypertension, hyperlipidemia. She presented to the ED due to 2 days of continuous vertigo, nausea, vomiting, and diarrhea. She is being admitted due to uncontrollable vertigo and transaminitis. Patient seen at bedside with her family present (, granddaughter, son, daughter). She stated that 2 days ago she developed vertigo that has been continuous and worsens with head movements. The only thing that relieves the vertigo is if she is laying flat with a cold washcloth on her face in a dark room, with no noise. She also endorses associated headache. She stated it makes her nauseous and she has vomited 1-3 times. She also endorses roughly 4 episodes of diarrhea over the past 2 days, she denies any recent antibiotic use. She stated she has bodyaches and overall feels unwell. She is also had a decreased p.o. intake due to the vertigo, and endorses dry mouth. She feels weak. She also endorses intermittent bilateral chest pain that increases when she is breathing heavily. She stated she has taken roughly 4 extra strength Tylenol a day for the past 3 days to try to help with the headache. Her vertigo was unrelieved with her home meclizine. She also took a couple prednisone yesterday which she has as needed for rheumatoid arthritis. She uses methotrexate on Fridays and has been on this for 5 to 6 years. She has been on atorvastatin for roughly 3 years. She has had no recent medication changes. She denies any tick bites or history of Lyme's. Patient denies fever, chills, rhinorrhea, sore throat, cough, sputum production, dyspnea, abdominal pain, numbness, tingling. She does not use nicotine products or drink alcohol. She denies past history of CVA, DM, previous VTE. Her dad had a history of CVA in his 80s. She herself has never had a history of CVA. She takes all of her home medications at night and did take them last night. She wishes to be full code after discussion with her and her family. Her vertigo was slightly improved with 0.25 Mg Ativan in ED. She feels as though she could tolerate a clear diet. Specialty Data Hospitalist Discharge data: Statin-induced myositis and transaminitis Discharge PE GENERAL: 69 yo well-nourished [place]. Awake, alert and oriented. No distress. LUNGS: No accessory muscle use. Few isolated late expiratory wheezes appreciated. No rhonchi or rales. CARDIOVASCULAR: Regular rate and rhythm. ABDOMEN: Soft, non-tender and non-distended. Bowel sounds normoactive x 4 quad. EXTREMITIES: No edema. Non-tender. Peripheral pulses +2/4. NEUROLOGIC: No focal neurological deficits. CN II-XII grossly intact. PSYCHIATRIC: Cooperative. Appropriate mood and affect. SKIN: Warm, dry, intact. No rashes or lesions. Discharge Data Consultations 08/06/24 14:37 ED Decision to Admit Stat Procedures Performed 08/08/24 06:23 08/08/24 06:23 Chest X-Ray 08/06/24 09:20 XR chest 1V portable CLINICAL HISTORY: dizziness COMPARISON STUDY: 10/01/2013 FINDINGS: Single view portable chest demonstrates slight linear streaking in the left lung base as seen through the cardiac silhouette. The lung grijalva otherwise clear allowing for low lung volumes. Cardiomegaly and mild pulmonary vascular congestion are noted. The left mainstem bronchus appears slightly elevated as an indicator of left atrial enlargement.. IMPRESSION: Nonspecific discoid atelectasis left lung base; cardiomegaly and mild pulmonary vascular congestion. ACT 112: Negative or not required by law. Electronically signed by: Naima Martinez M.D. 08/06/2024 9:[address] 08/06/24 09:38 CT OF THE HEAD WITHOUT CONTRAST CLINICAL HISTORY: dizziness COMPARISON STUDY: Head CT March 04, 2024. TECHNIQUE: Helical axial images of the head were obtained without IV contrast. Automated exposure control was utilized for the study. A dose lowering technique was utilized adhering to the principles of ALARA. FINDINGS: No acute intracranial hemorrhage, midline shift or mass effect is present. The ventricular system is unremarkable. The basal cisterns are patent. No extra-axial collections are present. There are no findings to suggest acute dural sinus thrombosis or acute territorial infarct. No significant calvarial abnormalities are present. Visualized portions of the sinuses and mastoid air cells are clear. IMPRESSION: No acute intracranial findings. ACT 112: Negative or not required by law. Electronically signed by: Teto Johnson M.D. 08/06/2024 11:02 AM Head CTA 08/06/24 09:38 CT angio head w con CLINICAL HISTORY: dizziness. Vertigo COMPARISON STUDY: None TECHNIQUE: Unenhanced axial CT scan of the brain is performed. Subsequently, following the IV administration of 120 cc of Optiray, CT angiogram of the brain was performed from the skull base to the vertex. Images are reviewed in the axial, sagittal, and coronal planes. 3-D MIPS images are created and assessed. IV contrast was administered without complication. All measurements were obtained according to NASCET criteria. A dose lowering technique was utilized adhering to the principles of ALARA. CT DOSE: 1076.58mGy*cm FINDINGS: There is no significant stenosis or occlusive disease identified. No vascular malformation or aneurysm appreciated. No definite evidence of vasculitis. There is no fluid in the mastoid air cells or the middle ear. Visualized paranasal sinuses demonstrate mild mucosal thickening in the left maxillary antrum. IMPRESSION: Negative study ACT 112: Negative or not required by law. The above report was generated using voice recognition software. It may contain grammatical, syntax or spelling errors. Electronically signed by: Naima Martinez M.D. 08/06/2024 11:06 AM Neck CTA 08/06/24 09:38 CT angio neck with con CLINICAL HISTORY: dizziness. Vertigo COMPARISON STUDY: None TECHNIQUE: Following the IV administration of 120 of Optiray, CT angiogram of the neck was performed from the aortic arch to the skull base. Images are reviewed in the axial, sagittal, and coronal planes. 3-D MIPS images are created and assessed. IV contrast was administered without complication. All measurements were calculated based on NASCET criteria. A dose lowering technique was utilized adhering to the principles of ALARA. CT DOSE: 1076.58 mGy.cm FINDINGS: There is no hemodynamically significant stenosis or occlusive disease. Calcified plaques are present in the proximal ICAs bilaterally. The vertebral arteries are of similar size. There is no evidence of dissection. Soft tissue analysis demonstrates bilateral parotid gland lymph nodes appeared is also status slightly prominent bilateral cervical lymph nodes with no evidence of matted adenopathy. There is a12 mm left sided thyroid nodule. IMPRESSION: Calcified plaques at the carotid bifurcations bilaterally. No evidence of stenosis or occlusive disease. No dissection. Left thyroid nodule. Consider elective ultrasound correlation. ACT 112: Negative or not required by law. The above report was generated using voice recognition software. It may contain grammatical, syntax or spelling errors. Electronically signed by: Naima Martinez M.D. 08/06/2024 11:14 AM Abdomen/Pelvis CT 08/06/24 11:[address] WITH IV CONTRAST CT DOSE: 1403.55 mGy.cm HISTORY: transaminitis TECHNIQUE: Multiaxial CT images of the abdomen and pelvis were performed following the IV administration of 94 cc of Optiray, sagittal and coronal reconstructions were done. A dose lowering technique was utilized adhering to the principles of ALARA. COMPARISON STUDY: None FINDINGS: There is mild hepatosplenomegaly. There is diffuse hepatic steatosis. There are no focal liver lesions identified. There is no ascites. The gallbladder is absent. The bile ducts are not dilated. There are no pancreatic, adrenal, or splenic lesions appreciated. Kidneys demonstrate no evidence of obstructive uropathy. There is no aortic aneurysm or periaortic adenopathy. No bowel obstruction or free air. No ascites. In the pelvis, the uterus is midline and normal in size. The urinary bladder is unremarkable. There is no fluid in the cul-de-sac. There is no evidence of diverticulitis. No adnexal mass. The lung bases are negative. There is degenerative disc disease at L5-S1. There is a bulging annulus at L4-5. IMPRESSION: Diffuse hepatic steatosis. Mild hepatosplenomegaly. ACT 112: Negative or not required by law. The above report was generated using voice recognition software. It may contain grammatical, syntax or spelling errors. Electronically signed by: Naima Martinez M.D. 08/06/2024 1:05 PM Brain MRI 08/06/24 21:00 Exam(s): MRI HEAD Without Contrast EXAM: MR Head Without Intravenous Contrast CLINICAL HISTORY: Reason for exam: headache, loss of co-ordination, vertigo. TECHNIQUE: Magnetic resonance images of the head/brain without intravenous contrast in multiple planes. COMPARISON: CT brain and CTA head: 08/06/2024 FINDINGS: Brain: Unremarkable. No mass. No hemorrhage. No acute infarct. Ventricles: Unremarkable. No ventriculomegaly. Bones/joints: Unremarkable. No acute fracture. Sinuses: Unremarkable as visualized. No acute sinusitis. Mastoid air cells: Unremarkable as visualized. No mastoid effusion. Orbits: Unremarkable as visualized. IMPRESSION: No acute intracranial abnormality. Electronically signed by: Kenny Medeiros MD 08/07/24 00:01 AM Hospital Course (1) Transaminitis: Pt admitted with symptoms of n/v/d and intractable vertigo and found to have acute transaminitis and rhabdomyolysis - possibly induced from GI viral illness +/- statin therapy - Admitted to tele, treated with IVF and discontinued statin - AST on admission 614 --> 479 --> 319 - ALT on admission 266 --> 214 --> 166 - APAP level 8, no indication for NAC - IV methylpred 60mg q8 added on 08/07 -> transition to quick oral prednisone taper on d/c - Labs as above have trended down - Viral hepatitis serologies are pending, CMV pending - Avoid APAP and obtain f/u CMP and CK on Friday 08/11 - Hold MTX dose this Sunday - discuss resumption with PCP at follow up based on LFT laboratory values (2) Vertigo: Acute intractable vertigo - CT/CTA head and neck obtained and negative, neurochecks negative, MRI deferred d/t symptom improvement - Treated with IVF and Zofran PRN - Scheduled Meclizine was added on 08/07. Pt reports resolution in vertigo sx. She does have a prior h/o vertigo with a script for Meclizine at home to take PRN. - (3) Statin-induced myositis: Possible statin-induced myositis with elevated total CK of 6955 on admission c/w mild rhabdo - Statin discontinued and pt received IVF hydration - IV methylprednisolone 60mg q8 added by provider on 08/07 - Total CK downtrended to 3718 this AM. Can continue to push fluids orally and will repeat CK on Friday 08/11. - Continue holding statin until f/u with PCP to discuss resumption. (4) Volume depletion: Hypovolemic with marginal BP in setting of acute N/V/D - Received IVF hydration and triamterene/hctz was held - Would continue holding meds on discharge and f/u with PCP to discuss restarting. (5) Elevated troponin: - Minimally elevated trop on admission of 36.1, follow up 34.7 - Remained chest pain free throughout stay, was monitored on tele - EKG w/o acute ST-T wave changes - ACS ruled out (6) Rheumatoid arthritis: Chronic - Managed with MTX weekly which has been held in the setting of hepatic impairment - Continue holding, trend LFTs and can discuss with PCP resuming (7) Pancytopenia: Acute - ?Viral induced - Was placed in neutropenic precautions - Leukopenia improving - Platelets 61 today, were 76 yesterday, would f/u with CBC on 08/11 - Not receiving any heparin products - Avoid aspirin - F/u with pcp Plan Incidental findings during her stay: 1. Thyroid nodule - will require f/u with pcp and thyroid ultrasound as outpatient for further eval 2. Nocturnal hypoxemia - requires sleep study to dx suspected sleep apnea Above plan of care has been d/w Dr. Golden. Pt is medically and hemodynamically stable for discharge. Follow up with PCP within 1 week of discharge. Labs to be obtained on 08/11. Rapid prednisone taper. Continue holding statin, methotrexate, and triamterene/hctz until pcp f/u. Total time for discharge: 36 minutes Coding Level of Care Code 39362 INP/OBS DISCH >30 MIN Diagnoses Transaminitis R74.01 Vertigo R42 Statin-induced myositis M60.9; T46.6X5A Volume depletion E86.9 Elevated troponin R79.89 Rheumatoid arthritis M06.9 Pancytopenia D61.818
[2024-08-08 12:32] VITALS: PULSE 85
[2024-08-08 13:49] LABS: CMV IgG Antibody <0.60 U/mL; CMV IgM Antibody <30.00 AU/mL
[2024-08-08 15:57] LABS: Hepatitis A Antibody IgM NON-REACTIVE (NON-REACTIVE); Hepatitis B Core Antibody IgM NON-REACTIVE (NON-REACTIVE)
[2024-08-11 03:32] LABS: Babesia microti DNA Not Detected (Not Detected)
== END 2024-08-08 13:08 | disposition home or self-care (01) | DRG 149 ==
LOC: ED 08:37 → SUATTDRO 14:36 → 2N 14:36

== ENCOUNTER 2024-08-11 03:35 | Inpatient (IN) ==
--- NOTE | 2024-08-11 03:59 | Emergency Department Note ---
Impression & Plan Chest pain, Thrombocytopenia, Abnormal transaminases, Bilateral edema of lower extremity, Elevated troponin ED Provider Note ED Provider Note NAME: GRACIE HUGHES AGE:69 SEX: Female : 1955 ARRIVES VIA: Private vehicle INFORMANT: Patient ED PROVIDER(s): Leelee Willoughby DO CHIEF COMPLAINT: Chest pain HPI: This is a 69-year-old female who presents emergency ferment complaining of chest pain which began yesterday morning. She states it has been constant, and is worse laying down or walking around. She states she has had accompanying shortness of breath and a mild cough that seems mostly nonproductive. She denies any accompanying abdominal pain, vomiting, or diarrhea. She did note some leg swelling but attributes that to recent hospitalization. She denies fevers or chills or other URI symptoms. Patient recently hospitalized for elevated liver numbers and a virus according to family at bedside. They state they thought her abnormal liver numbers were due to her cholesterol medication which was since stopped. PAST MEDICAL HISTORY:See Below PAST SURGICAL HISTORY:See Below FAMILY HISTORY:See Below SOCIAL HISTORY:See Below HOME MEDICATIONS:See Below ALLERGIES:See Below VITALS:See Below PHYSICAL EXAMINATION: GENERAL: alert, uncomfortable appearing, well nourished, no distress, non-toxic EYE EXAM: normal conjunctiva, PERRL and EOM's grossly intact OROPHARYNX: no exudate, no erythema, lips, buccal mucosa, and tongue normal and mucous membranes are dry NECK: supple, no nuchal rigidity, no adenopathy, non-tender LUNGS: Clear to auscultation. Normal chest wall mechanics, no w/r/r, mild tachypnea noted HEART: no murmurs, S1 normal and S2 normal ABDOMEN: abdomen soft, non-tender, normo-active bowel sounds, no masses, no rebound or guarding. SKIN: no rashes, petechiae, orbruising UPPER EXTREMITIES: upper extremities are grossly normal. FROM, nml pulses b/l. LOWER EXTREMITIES: No pitting edema. FROM, nml pulses b/l. NEURO EXAM: Normal sensorium, cranial nerves II-XII grossly intact, normal speech, no facial droop,nogross weakness of arms, no gross weakness of legs. Gross sensation intact. No ataxia. Vital Signs: reviewed and remarkable Differential Diagnosis: acute coronary syndrome, pericarditis, pulmonary embolus, aortic dissection, pneumonia, pneumothorax, musculoskeletal pain, shingles, GERD, GI bleed, as well as others were considered MEDICAL DECISION MAKING: This is a 69-year-old female who presents emergency department due to concern for chest pain. Patient was afebrile and vital signs were stable on arrival. Labs drawn and sent, IV established, EKG and chest x-ray performed at bedside interpreted by me and patient monitored on telemetry. Nasal swab obtained and sent additionally given recent admission. Patient found to have a significantly elevated D-dimer and a mildly elevated troponin. Patient sent for CT angiography of the chest. Patient's transaminases were elevated. She was recently admitted with a statin induced myositis with elevated transaminases. Patient given IV Zofran for coming nausea and IV fentanyl for pain and started on IV fluids. Patient received several doses of IV fentanyl while trying to obtain further during during her evaluation. Due to concerning symptoms and accompanying abnormalities, case discussed with the hospitalist team for additional evaluation and management. No ectopy or dysrhythmia noted on telemetry and vital signs remained stable. She was transition to IV morphine for further pain control. Consultation(s): 0600: Discussed with Dr. Estrada, [facility] hospitalist team, for additional evaluation and management. ER Treatment Provided: See below Diagnostics Interpreted By Me: -ECG: Normal sinus at 92, normal axis, normal intervals, no acute ST/T wave changes -Cardiac Monitoring: An order was placed for continuous cardiac monitoring. The monitor shows a rate of 96 with normal sinus rhythm. -Laboratory studies: As stated above and show below. -Imaging studies: X-ray Chest: A single view study of the chest was reviewed and was negative for focal infiltrate, effusion, pulmonary edema, or wide mediastinum. Cardiomegaly noted. Triage Nursing Note Reviewed Prior/Outside Records Reviewed -discharge summary from 08/08/2024 reviewed Past Med/Surg History Problem List (Updated 08/11/24 @ 06:56 by Leelee Willoughby DO) Elevated troponin (Acute) Bilateral edema of lower extremity (Acute) Abnormal transaminases (Acute) Thrombocytopenia (Acute) Chest pain (Acute) Pancytopenia Rheumatoid arthritis Elevated troponin Volume depletion Viral illness Statin-induced myositis Elevated creatine kinase Rhabdomyolysis Acute diarrhea Elevated troponin Transaminitis Left thyroid nodule (Acute) Non-ST elevation ND (NSTEMI) (Acute) Elevated aspartate aminotransferase level (Acute) Nausea & vomiting (Acute) Thrombocytopenia (Acute) Dizziness (Acute) Blurry vision, bilateral Nausea in adult Unsteady gait when walking Frontal headache Fatigue Vertigo Acute medial meniscal tear Closed fibular fracture (~06/15/23) Tibial plateau fracture, left (~06/15/23) Swelling of left lower extremity Knee pain, left Vitamin D3 deficiency Screening for heart disease Osteopenia Rheumatoid arthritis Esophageal reflux (Acute) Hypertension Hyperlipidemia Peripheral edema (Chronic) Medical History Erythema migrans (Lyme disease) 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 History of colon polyps Nausea and vomiting after administration of anesthetic agent Rheumatoid arthritis History of kidney stones Tylenol overdose (07/10/14) Hepatitis Surgical History History of cystoscopy History of colonoscopy with polypectomy History of wisdom tooth extraction Hx of cholecystectomy H/O tubal ligation Family History Mother Diabetes Hypertension Father Diabetes Lung cancer Stroke Grandmother Diabetes Grandfather Diabetes Daughter Family history of reaction to anesthesia nausea/vomiting Denies family history of Ovarian cancer Prostate cancer Breast cancer Social History Smoking Status: Never smoker Second Hand Exposure: No; Do You Dip or Chew Tobacco: No; Hx Alcohol Use: No Hx Substance Use: No Preferred Language: Yakut Communication Ability: Effective Visual Impairment: Limited Hearing Ability: Normal Quality Control Chemist Required: No Beliefs That Will Affect Care: None marital status: Current Living Situation: Spouse current occupational status: retired 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 How many Children do You have: 5 Feels Safe at Home: Yes Childhood Exposure to Second-Hand Smoke: Yes Diet: regular caffeine: Yes (tea and soda) during the past year weight has: remained stable Dental Care, Regularly: Yes Physical Activity Frequency: Daily Seatbelt Use: always Sunscreen Use: Yes ("sometimes") Do you think of yourself as: straight/heterosexual Gender Identity: Female Assistive Devices: Glasses Allergies Allergies Allergy/AdvReac Type Severity Reaction Status Date / Time acetylcysteine Allergy Severe Throat Verified 08/06/24 12:18 Swelling, Cough, Dry Mouth, Itching Home Meds Home Medications Medication Instructions Recorded Confirmed potassium 99 mg tablet 99 mg PO HS 03/08/20 08/11/24 folic acid 1 mg tablet 1 mg PO DAILY 08/06/24 08/11/24 methotrexate sodium 2.5 mg tablet 15 mg PO WK 08/06/24 08/11/24 Previous Rx's Medication Instructions Recorded Knee immobilizer #1 ea 06/22/23 meclizine 25 mg tablet See Rx Instructions PO TID PRN 02/29/24 dizziness #60 tabs lorazepam 0.5 mg tablet 0.5 mg PO BID PRN vertigo #10 tabs 08/08/24 prednisone 20 mg tablet 20 mg PO DAILY #13 tabs 08/08/24 Results & Data (ED) Vital Signs Vital Signs - 24 hr 08/11/24 04:55 08/11/24 05:00 08/11/24 05:00 Pulse Rate 80 78 Respiratory Rate 20 20 Blood Pressure 150/85 H 150/85 H Blood Pressure Mean 110 110 Pulse Oximetry 88 L 93 95 Oxygen Delivery Method Room Air Nasal Cannula Room Air Nasal Cannula Oxygen Flow Rate 2 Oxygen Flow Rate - Titration 2 Pulse Oximetry Post Tiitration 92 08/11/24 05:30 08/11/24 05:45 Pulse Rate 91 H Respiratory Rate 22 Blood Pressure 189/94 H Blood Pressure Mean 125 Pulse Oximetry 92 89 L Oxygen Delivery Method Nasal Cannula Nasal Cannula Oxygen Flow Rate 2 2 Oxygen Flow Rate - Titration 3 Pulse Oximetry Post Tiitration 93 Laboratory Data 08/11/24 03:56 08/11/24 03:56 Lab Results 08/11/24 Range/Units 03:56 WBC 5.91 (4.8-10.8) K/ul RBC 4.55 (4.20-5.40) M/uL Hgb 13.0 (12.0-16.0) g/dl Hct 40.4 (37.0-47.0) % MCV 88.8 (80.0-100.0) fL MCH 28.6 (25.0-34.0) pg MCHC 32.2 (32.0-36.0) g/dL RDW Std Deviation 49.1 H (36.4-46.3) fL RDW Coeff of Macy 15.3 H (11.5-14.5) % Plt Count 33 L (130-400) K/uL Immature Gran % (Auto) 1.4 % Neut % (Auto) 55.8 % Lymph % (Auto) 32.3 % Dickenson % (Auto) 10.0 % Eos % (Auto) 0.2 % Baso % (Auto) 0.3 % Neut # (Auto) 3.30 (1.40-6.50) K/uL Lymph # (Auto) 1.91 (1.20-3.40) K/uL Dickenson # (Auto) 0.59 (0.11-0.59) K/uL Eos # (Auto) 0.01 (0.00-0.50) K/uL Baso # (Auto) 0.02 (0.00-0.20) K/uL Immature Gran # (Auto) 0.08 (0.01-0.20) K/uL Absolute Nucleated RBC 0.02 (0.00-0.12) K/uL Nucleated RBC % (auto) 0.3 % Blood Smear Review PT 10.0 (9.0-12.0) Seconds INR 0.9 (0.9-1.1) D-Dimer 8250 H* (0-500) ug/L FEU Sodium 143 (136-145) mmol/L Potassium 4.3 (3.5-5.1) mmol/L Chloride 105 (98-107) mmol/L Carbon Dioxide 35 H (21-32) mmol/L Anion Gap 3 (3-11) BUN 20 (6-23) mg/dl Creatinine 0.67 (0.6-1.2) mg/dl Est Cr Clr Drug Dosing Not Reportable eGFR 94.55 BUN/Creatinine Ratio 29.9 H (10-20) Glucose 130 H (70-99(Fasting)) mg/dl Calcium 8.8 (8.6-10.3) mg/dl Magnesium 2.2 (1.7-2.4) mg/dl Total Bilirubin 0.6 (0.2-1.0) mg/dl AST 423 H (13-39) U/L ALT 353 H (7-52) U/L Alkaline Phosphatase 111 H (34-104) U/L Troponin I High Sens 29.6 H (0-14) pg/ml B-Natriuretic Peptide 110 H (0-100) pg/ml Total Protein 6.0 (6.0-8.3) gm/dl Albumin 3.3 L (3.4-5.0) gm/dl Globulin 2.7 (2.5-4.0) gm/dl Albumin/Globulin Ratio 1.2 (0.9-2) Lipase 45 (11-82) U/L TSH 1.902 (0.300-4.500) uIu/ml Adenovirus (PCR) Not Detected (NotDetected) B. pertussis DNA (PCR) Not Detected (NotDetected) B.parapertussis DNA PCR Not Detected (NotDetected) C. pneumoniae DNA (PCR) Not Detected (NotDetected) Coronavirus OC43 (PCR) Not Detected (NotDetected) Coronavirus HKU1 (PCR) Not Detected (NotDetected) Coronavirus 229E (PCR) Not Detected (NotDetected) SARS-CoV-2 (PCR) Not Detected (NotDetected) Coronavirus NL63 (PCR) Not Detected (NotDetected) Human Metapneumovir PCR Not Detected (NotDetected) Influenza Type A (PCR) Not Detected (NotDetected) Influenza Type B (PCR) Not Detected (NotDetected) M. pneumoniae (PCR) Not Detected (NotDetected) Parainfluenza 1 (PCR) Not Detected (NotDetected) Parainfluenza 2 (PCR) Not Detected (NotDetected) Parainfluenza 3 (PCR) Not Detected (NotDetected) Parainfluenza 4 (PCR) Not Detected (NotDetected) RSV (PCR) Not Detected (NotDetected) Entero/Rhino (PCR) Not Detected (NotDetected) Administered Medications Acetaminophen (Acetaminophen 500 Mg Tab) 1,000 mg PO Q8H PRN PRN Reason: Pain or Fever Stop: 09/10/24 20:17 Last Admin: 08/11/24 21:39 Dose: 1,000 mg Documented By: TKGerson Folic Acid (Folic Acid 1 Mg Tab) 1 mg PO DAILY DEMOND Stop: 09/10/24 08:59 Last Admin: 08/11/24 17:08 Dose: Not Given Documented By: MK Lorazepam (Lorazepam 0.5 Mg Tab) 0.5 mg PO BID PRN PRN Reason: vertigo Stop: 09/10/24 06:27 Last Admin: 08/11/24 15:50 Dose: 0.5 mg Documented By: LESLEY Morphine Sulfate (Morphine Sulfate 2 Mg/Ml Carp) 2 mg IV Q1H PRN PRN Reason: Pain Stop: 08/25/24 07:03 Last Admin: 08/11/24 10:59 Dose: 2 mg Documented By: Admin: 08/11/24 07:25 Dose: 2 mg Documented By: Ondansetron HCl (Ondansetron Inj 2 Mg/Ml 2 Ml Vial) 4 mg IV Q6H PRN PRN Reason: Nausea Stop: 09/10/24 06:27 Last Admin: 08/11/24 19:56 Dose: 4 mg Documented By: Admin: 08/11/24 12:49 Dose: 4 mg Documented By: NJ Prednisone (Prednisone 20 Mg Tab) 20 mg PO DAILY DEMOND Stop: 09/10/24 08:59 Last Admin: 08/11/24 08:32 Dose: 20 mg Documented By: Discontinued Medications Fentanyl Citrate (Fentanyl Citrate Pf 100 Mcg/2 Ml Vial) 50 mcg IV NOW STA Stop: 08/11/24 04:35 Last Admin: 08/11/24 04:42 Dose: 50 mcg Documented By: DOT Sodium Chloride (Nss) 1,000 mls @ 125 mls/hr IV .Q8H DEMOND Stop: 08/12/24 03:59 Last Infusion: 08/11/24 07:24 Dose: Infused Documented By: Admin: 08/11/24 04:10 Dose: 125 mls/hr Documented By: TOAN Pantoprazole Sodium (Protonix) 40 mg in 10 mls @ 5 mls/min IV NOW ONE Stop: 08/11/24 03:53 Last Admin: 08/11/24 04:10 Dose: 5 mls/min Documented By: TOAN Ioversol (Optiray 320 125ml) 125 ml IV ONCE ONE Stop: 08/11/24 05:21 Last Admin: 08/11/24 05:21 Dose: 118 ml Documented By: KRISTIN Ondansetron HCl (Ondansetron Inj 2 Mg/Ml 2 Ml Vial) 4 mg IV NOW STA Stop: 08/11/24 04:51 Last Admin: 08/11/24 04:53 Dose: 4 mg Documented By: DOT Ondansetron HCl (Ondansetron Inj 2 Mg/Ml 2 Ml Vial) 4 mg IV NOW STA Stop: 08/11/24 05:29 Last Admin: 08/11/24 05:37 Dose: 4 mg Documented By: DOT Polyethylene Glycol (Polyethylene (Miralax) 17 Gm Pack) 34 gm PO ONE ONE Stop: 08/11/24 16:31 Last Admin: 08/11/24 20:05 Dose: Not Given Documented By: ALEXIA Imaging Data Radiologist's Impression: Chest X-Ray 08/11/24 03:53 EXAM: XR chest 1V portable CLINICAL HISTORY: cp TECHNIQUE: An X-ray image of the chest is obtained in AP projection. COMPARISON: 08/06/2024 CR FINDINGS: Pulmonary Parenchyma: Prominent hilar shadows and bronchovascular markings at both lung grijalva denoting congestive changes. Obscured left costophrenic recess likely due to prominent pericardial fat rather than pleural effusion. No evidence of consolidation, collapse, or focal opacities. No pulmonary nodules are identified. No evidence of right pleural effusion or pleural thickening. Heart and Mediastinum: Prominent heart size and shape are normal. No mediastinal widening or masses. No hilar or mediastinal lymphadenopathy. Bony Thorax: Spondylodegenerative changes. Bony thorax appears intact without fractures or deformities. Soft Tissues: Soft tissues overlying the chest wall are unremarkable. IMPRESSION: 1. Prominent hilar shadows and bronchovascular markings at both lung grijalva denoting congestive changes. 2. Obscured left costophrenic recess likely due to prominent pericardial fat rather than pleural effusion. 3. Cardiomegaly. 4. No time interval changes compared to the last study. Electronically signed by Phyllis Klein 08-11-2024 05:30 AM Chest CTA 08/11/24 05:02 EXAM: CT angio chest PE protocol CLINICAL HISTORY: PE TECHNIQUE: Contiguous 3.[address] angiographic images of the chest were acquired with the administration of intravenous contrast. Coronal and sagittal reconstructions were obtained. One of these 3D techniques was utilized: Maximum Intensity Pixel (MIP), 3D Reconstructed Images, Volume Rendered Images, Surface Shaded Rendering. One of the following dose reduction techniques were utilized for this exam: Automated exposure control, adjustment of the mA and/or kV according to patient size, and use of iterative reconstruction. CTDI: DLP: COMPARISON: None. FINDINGS: Aorta: The thoracic aorta is normal in caliber. No evidence of aneurysm, dissection, or significant atherosclerotic changes. Aortic arch and descending thoracic aorta are unremarkable. Pulmonary Arteries: Pulmonary arteries are normal in size and opacification. No evidence of pulmonary embolism. No stenosis or filling defects. Superior Vena Cava (SVC) and Inferior Vena Cava (IVC): Normal opacification and caliber. No evidence of thrombus or obstruction. Coronary Arteries: Coronary arteries are well-opacified. No significant stenosis or atherosclerotic changes. Mediastinum: No mediastinal mass . Few subcentimetric lymph nodes are seen in mediastinum. Normal appearance of the thymus. Heart: Cardiac size is enlarged. No pericardial effusion. Lungs: Minimal bilateral pleural effusion is seen with passive atelectasis of underlying lung. Rest of the lungs are clear with no evidence of consolidation, nodules, or masses. Bones: No fractures or lytic/sclerotic lesions of the visualized bony structures. Normal alignment and bone density. Mild degenerative changes are seen in spine. Soft Tissues: Normal appearance of the visualized soft tissues. No abnormal masses or fluid collections. Few hypodense nodules are seen in both lobes of thyroid. IMPRESSION: 1. No evidence of pulmonary embolism. 2. Minimal bilateral pleural effusion with passive atelectasis of underlying lung. Electronically signed by Gabino Vera 08-11-2024 06:28 AM Discharge Plan Visit Data Chief Complaint: Chest Pain Stated Complaint: CHEST PAIN ED Provider: Leelee Willoughby Discharge Problem: Chest pain, Thrombocytopenia, Abnormal transaminases, Bilateral edema of lower extremity, Elevated troponin Patient Disposition: Admitted As Inpatient Discharge Instructions Interventions: ED Discharge Assessment Last Done: 08/11/24 06:28
[2024-08-11] MEDS: PANTOprazole 40 MG/10 ML SYR IV ONE (04:10)
[2024-08-11] MEDS: SODIUM CHLORIDE 0.9% 1,000 ML IV SCH (04:10)
[2024-08-11 04:29] LABS: Alanine Aminotransferase 353 U/L (7-52); Albumin Globulin Ratio 1.2 (0.9-2); Albumin Level 3.3 gm/dl (3.4-5.0); Alkaline Phosphatase 111 U/L (34-104); Anion Gap 3 (3-11); Aspartate Aminotransferase 423 U/L (13-39); BUN Creatinine Ratio 29.9 (10-20); Bilirubin,Total 0.6 mg/dl (0.2-1.0); Blood Urea Nitrogen 20 mg/dl (6-23); Calcium 8.8 mg/dl (8.6-10.3); Carbon Dioxide 35 mmol/L (21-32); Chloride 105 mmol/L (98-107); Globulin 2.7 gm/dl (2.5-4.0); Glucose 130 mg/dl (70-99(Fasting)); Lipase 45 U/L (11-82); Magnesium 2.2 mg/dl (1.7-2.4); Potassium 4.3 mmol/L (3.5-5.1); Sodium 143 mmol/L (136-145)
[2024-08-11 04:35] LABS: Hematocrit (blood only) 40.4 % (37.0-47.0); Mean Corpuscular Hemoglobin 28.6 pg (25.0-34.0); Mean Corpuscular Hgb Conc 32.2 g/dL (32.0-36.0); Mean Corpuscular Volume 88.8 fL (80.0-100.0); Nucleated RBC # (auto) 0.02 K/uL (0.00-0.12); Nucleated RBC % (auto) 0.3 %; Platelet Count 33 K/uL (130-400); RDW Coefficient of Variation 15.3 % (11.5-14.5); RDW Standard Deviation 49.1 fL (36.4-46.3); Red Blood Count 4.55 M/uL (4.20-5.40); Troponin I High Sensitivity 29.6 pg/ml (0-14); White Blood Count 5.91 K/ul (4.8-10.8)
[2024-08-11] MEDS: fentaNYL citrate PF 100 MCG/2 ML VIAL IV STA (04:42)
[2024-08-11 04:44] LABS: Thyroid Stimulating Hormone 1.902 uIu/ml (0.300-4.500)
[2024-08-11 04:45] LABS: INR 0.9 (0.9-1.1)
[2024-08-11] MEDS: ONDANSETRON INJ 2 MG/ML 2 ML VIAL IV STA ×2 (04:53→05:37)
--- NOTE | 2024-08-11 04:55 | History & Physical Report ---
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 Pt most recent hospitalization 08/06/2024- 08/08/2024 for vertigo + transaminitis. ED evaluation reveals no leukocytosis, normal H/H, CMP CO2 35, ratio 29.9, AST 423, ALT 353, alk phos 111, troponin 29.6, pending repeat, BNP 110, albumin 3.3; D-dimer 8250; Biofire negative; CXR prominent hilar shadows bronchovascular markings noted congestive changes, obscured L costophrenic recess secondary to prominent pericardial fat, cardiomegaly; chest CTA negative for PE, pending dopplers. Provided with NSS 1L IV, pantoprazole 40mg, ondansetron 4mg, and fentanyl 50 mcg in ED. 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 Suspect that the pain is ? referred from abdomen. Unlikely cardiac related, possibly GI. - EKG w/o evidence of ischemia; Troponin 29.6, elevated per patient's baseline, pending repeat; BNP 110 - No anemia, no evidence of chest disease on CXR; Lipase 45; Ddimer 8250 - CTA chest negative for PE; pending venous doppler bilateral LE - Factor VIII, fibrinogen, haptoglobin, and LDH pending #Transaminitis Recent hospitalization 08/06-08/08/2024 for transaminitis and vertigo; suspected that transaminitis was 2/2 statin use, statin induced myositis. Also had utilized acetaminophen prior to last admission, but no indications for NAC at that time. H/o cholecystectomy. Most recent CTAP w/ diffuse hepatic steatosis, no hepatosplenomegaly. Denying EtOH use. One episode of vomiting during CT scan. 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 Please excuse any grammatical errors that may be secondary to use of this software. 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 States that the pain is across her entire chest, described as a constant pain, worse with movement but also significant with laying down. Also having some SOB and nonproductive cough and pain that radiates to her back; took 1 dose of Tylenol the day DIVISION ORDER ANALYST, and utilize IBU the day before for pain. No known sick contacts. Patient did have an episode of vomiting while she was in the CT scanner but this was after receiving fentanyl pain medication as well as taking a sip of water. States that she is not having overt abdominal pain at baseline, and has not had any N/V/D/C otherwise. Still experiencing vertigo, not much relief with meclizine. Overall patient denying palpitations, numbness/tingling, LUTS, headache, vision changes, syncopal events, lightheadedness, or fever/chills. Pt most recent hospitalization 08/06-08/08/2024 for vertigo + transaminitis. ED evaluation reveals no leukocytosis, normal H/H, CMP CO2 35, ratio 29.9, AST 423, ALT 353, alk phos 111, troponin 29.6, pending repeat, BNP 110, albumin 3.3; D-dimer 8250; Biofire negative; CXR prominent hilar shadows bronchovascular markings noted congestive changes, obscured L costophrenic recess secondary to prominent pericardial fat, cardiomegaly; chest CTA negative for PE, pending dopplers. Provided with NSS 1L IV, pantoprazole 40mg, ondansetron 4mg, and fentanyl 50 mcg in ED. Please see Dr. Estrada's attestation for adjustments/additions to treatment plan. Allergies Allergy/AdvReac Type Severity Reaction Status Date / Time acetylcysteine Allergy Severe Throat Verified 08/06/24 12:18 Swelling, Cough, Dry Mouth, Itching Home Medications Medication Instructions Recorded Confirmed Type potassium 99 mg tablet 99 mg PO HS 03/08/20 08/11/24 History Knee immobilizer #1 ea 06/22/23 10/26/23 Rx meclizine 25 mg tablet See Rx Instructions PO TID PRN 02/29/24 08/11/24 Rx dizziness #60 tabs folic acid 1 mg tablet 1 mg PO DAILY 08/06/24 08/11/24 History methotrexate sodium 2.5 mg tablet 15 mg PO WK 08/06/24 08/11/24 History lorazepam 0.5 mg tablet 0.5 mg PO BID PRN vertigo #10 tabs 08/08/24 08/11/24 Rx prednisone 20 mg tablet 20 mg PO DAILY #13 tabs 08/08/24 08/11/24 Rx Past Med/Surg History Problem List (Updated 08/11/24 @ 06:56 by Leelee Willoughby, ) Elevated troponin (Acute) Bilateral edema of lower extremity (Acute) Abnormal transaminases (Acute) Thrombocytopenia (Acute) Chest pain (Acute) Pancytopenia Rheumatoid arthritis Elevated troponin Volume depletion Viral illness Statin-induced myositis Elevated creatine kinase Rhabdomyolysis Acute diarrhea Elevated troponin Transaminitis Left thyroid nodule (Acute) Non-ST elevation MO (NSTEMI) (Acute) Elevated aspartate aminotransferase level (Acute) Nausea & vomiting (Acute) Thrombocytopenia (Acute) Dizziness (Acute) Blurry vision, bilateral Nausea in adult Unsteady gait when walking Frontal headache Fatigue Vertigo Acute medial meniscal tear Closed fibular fracture (~06/15/23) Tibial plateau fracture, left (~06/15/23) Swelling of left lower extremity Knee pain, left Vitamin D3 deficiency Screening for heart disease Osteopenia Rheumatoid arthritis Esophageal reflux (Acute) Hypertension Hyperlipidemia Peripheral edema (Chronic) Medical History Erythema migrans (Lyme disease) 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 History of colon polyps Nausea and vomiting after administration of anesthetic agent Rheumatoid arthritis History of kidney stones Tylenol overdose (07/10/14) Hepatitis Surgical History History of cystoscopy History of colonoscopy with polypectomy History of wisdom tooth extraction Hx of cholecystectomy H/O tubal ligation Family History Mother Diabetes Hypertension Father Diabetes Lung cancer Stroke Grandmother Diabetes Grandfather Diabetes Daughter Family history of reaction to anesthesia nausea/vomiting Denies family history of Ovarian cancer Prostate cancer Breast cancer Social History Smoking Status: Never smoker Second Hand Exposure: No; Do You Dip or Chew Tobacco: No; Hx Alcohol Use: No Hx Substance Use: No Preferred Language: Moldovan Communication Ability: Effective Visual Impairment: Limited Hearing Ability: Normal Audit Tech Required: No Beliefs That Will Affect Care: None marital status: Current Living Situation: Spouse current occupational status: retired 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 How many Children do You have: 5 Feels Safe at Home: Yes Childhood Exposure to Second-Hand Smoke: Yes Diet: regular caffeine: Yes (tea and soda) during the past year weight has: remained stable Dental Care, Regularly: Yes Physical Activity Frequency: Daily Seatbelt Use: always Sunscreen Use: Yes ("sometimes") Do you think of yourself as: straight/heterosexual Gender Identity: Female Assistive Devices: Glasses Review of Systems Review of Systems: All systems reviewed & are unremarkable except as noted in Subjective Physical Exam Physical Exam: General: No acute distress, appears ill Skin: Warm and dry; no jaundice Head: Normocephalic, atraumatic Eyes: PERRL, conjunctivae clear, sclera non-icteric; continues closing eyes ENT: External ear and ear canal without swelling; nose atraumatic; good dentition, tongue normal appearance, pharynx normal but dry Neck: Supple, no LAD Cardio: RRR, no M/G/R, S1 and S2 normal Resp: No respiratory distress, Lungs CTA in all lobes bilaterally, no wheezes, rales, or rhonchi Abdomen: Soft, symmetric, mild tenderness RUQ, otherwise nontender; no rebound tenderness or guarding; No distention; No masses or hepatosplenomegaly; Bowel sounds normoactive MSK: No deformities; pulses palpable and equal; trace edema BLE; No calf tenderness, no size discrepancy, no erythema/edema. Neuro: Awake, alert; CN intact Psych: Appropriate mood and affect. 4 family members present in room at time of visit. Results & Data Results & Data Vital Signs (Past 12 Hours) Vital Signs Temp Pulse Pulse Resp BP BP Pulse Ox 08/11/24 04:00 87 16 164/94 H 92 08/11/24 03:51 93 H 08/11/24 03:39 36.6 C 99 H 20 172/92 H 91 O2 Del Method 08/11/24 04:00 Room Air 08/11/24 03:51 08/11/24 03:39 Room Air Laboratory Results 08/11/24 03:56 WBC 5.91 RBC 4.55 Hgb 13.0 Hct 40.4 MCV 88.8 MCH 28.6 MCHC 32.2 RDW Std Deviation 49.1 H RDW Coeff of Macy 15.3 H Plt Count 33 L Absolute Nucleated RBC 0.02 Nucleated RBC % (auto) 0.3 Sodium 143 Potassium 4.3 Chloride 105 Carbon Dioxide 35 H Anion Gap 3 BUN 20 Creatinine 0.67 Est Cr Clr Drug Dosing Not Reportable eGFR 94.55 BUN/Creatinine Ratio 29.9 H Glucose 130 H Calcium 8.8 Magnesium 2.2 Total Bilirubin 0.6 AST 423 H ALT 353 H Alkaline Phosphatase 111 H Troponin I High Sens 29.6 H B-Natriuretic Peptide 110 H Total Protein 6.0 Albumin 3.3 L Globulin 2.7 Albumin/Globulin Ratio 1.2 Lipase 45 TSH 1.902 Diagnostic Findings Chest X-Ray 08/11/24 03:53 EXAM: XR chest 1V portable CLINICAL HISTORY: cp TECHNIQUE: An X-ray image of the chest is obtained in AP projection. COMPARISON: 08/06/2024 CR FINDINGS: Pulmonary Parenchyma: Prominent hilar shadows and bronchovascular markings at both lung grijalva denoting congestive changes. Obscured left costophrenic recess likely due to prominent pericardial fat rather than pleural effusion. No evidence of consolidation, collapse, or focal opacities. No pulmonary nodules are identified. No evidence of right pleural effusion or pleural thickening. Heart and Mediastinum: Prominent heart size and shape are normal. No mediastinal widening or masses. No hilar or mediastinal lymphadenopathy. Bony Thorax: Spondylodegenerative changes. Bony thorax appears intact without fractures or deformities. Soft Tissues: Soft tissues overlying the chest wall are unremarkable. IMPRESSION: 1. Prominent hilar shadows and bronchovascular markings at both lung grijalva denoting congestive changes. 2. Obscured left costophrenic recess likely due to prominent pericardial fat rather than pleural effusion. 3. Cardiomegaly. 4. No time interval changes compared to the last study. Electronically signed by Phyllis Klein 08-11-2024 05:30 AM Chest CTA 08/11/24 05:02 EXAM: CT angio chest PE protocol CLINICAL HISTORY: PE TECHNIQUE: Contiguous 3.[address] angiographic images of the chest were acquired with the administration of intravenous contrast. Coronal and sagittal reconstructions were obtained. One of these 3D techniques was utilized: Maximum Intensity Pixel (MIP), 3D Reconstructed Images, Volume Rendered Images, Surface Shaded Rendering. One of the following dose reduction techniques were utilized for this exam: Automated exposure control, adjustment of the mA and/or kV according to patient size, and use of iterative reconstruction. CTDI: DLP: COMPARISON: None. FINDINGS: Aorta: The thoracic aorta is normal in caliber. No evidence of aneurysm, dissection, or significant atherosclerotic changes. Aortic arch and descending thoracic aorta are unremarkable. Pulmonary Arteries: Pulmonary arteries are normal in size and opacification. No evidence of pulmonary embolism. No stenosis or filling defects. Superior Vena Cava (SVC) and Inferior Vena Cava (IVC): Normal opacification and caliber. No evidence of thrombus or obstruction. Coronary Arteries: Coronary arteries are well-opacified. No significant stenosis or atherosclerotic changes. Mediastinum: No mediastinal mass . Few subcentimetric lymph nodes are seen in mediastinum. Normal appearance of the thymus. Heart: Cardiac size is enlarged. No pericardial effusion. Lungs: Minimal bilateral pleural effusion is seen with passive atelectasis of underlying lung. Rest of the lungs are clear with no evidence of consolidation, nodules, or masses. Bones: No fractures or lytic/sclerotic lesions of the visualized bony structures. Normal alignment and bone density. Mild degenerative changes are seen in spine. Soft Tissues: Normal appearance of the visualized soft tissues. No abnormal masses or fluid collections. Few hypodense nodules are seen in both lobes of thyroid. IMPRESSION: 1. No evidence of pulmonary embolism. 2. Minimal bilateral pleural effusion with passive atelectasis of underlying lung. Electronically signed by Gabino Vera 08-11-2024 06:28 AM Medications Administered NSS 1L IV Pantoprazole 40 mg IV Ondansetron 4mg IV Fentanyl citrate 50 mcg IV ECG Additional Comments: NSR 92 bpm, W[place] 128, QRS 78, QT/QTc 322/398, PRT 46/1/-31 Code Status & VTE Plan Code Status Full Supervising Physician Co-Signing Physician Notes Attending addendum: I have physically seen this patient, have supervised the KAREN's activities, and agree with the H&P unless as otherwise noted. Assessment and Plan: The patient is a 69-year-old female with past medical history including RA on methotrexate, osteopenia, hypertension, hyperlipidemia who presents to the emergency department with chest pain that began prior to arrival. Most recent hospitalization was from 08/06-08/08/2024 for vertigo and transaminitis. She was discharged to follow-up with outpatient physicians regarding reinstitution of medications when liver enzymes had normalized enough. Chest pain-patient reports pain began earlier this morning, and occasionally radiates to her back, accompanied with some shortness of breath and nonproductive cough. EKG without evidence of ischemia. Troponin 29.6, with repeat pending CTA chest negative for PE Have added venous Dopplers bilateral extremity due to elevated D-dimer of 8250 Platelets have decreased to 33, concern regarding possibility of DIC, patient is being admitted near end of shift, and remainder of admission is being turned over to daytime service Transaminitis- Enzymes have been elevated the past due to concerns regarding statin induced myositis, and previous use of acetaminophen Patient has history of cholecystectomy CT scan abdomen pelvis with diffuse hepatic steatosis, no hepatosplenomegaly. Patient denies alcohol use Urine drug screen is pending Respiratory BioFire testing is pending Again remainder of admission will be turned over to daytime service. Will be holding statin, and methotrexate as noted, Consult gastroenterology Remaining orders and notations as noted PG Care Time/CCT Total # of Minutes Spent Total Time Spent with Patient: Total time spent is greater than 50% in coordination of care (as documented) at patient's floor/unit and/or counseling patient: Coding Level of Care Code 94991 INT INP/OBS CARE 3/75MIN Diagnoses Chest pain R07.9 Transaminitis R74.01
[2024-08-11 04:57] LABS: Adenovirus PCR Not Detected (NotDetected); Bordetella parapertussis PCR Not Detected (NotDetected); Bordetella pertussis PCR Not Detected (NotDetected); Chlamydia pneumoniae PCR Not Detected (NotDetected); Coronavirus 229E PCR Not Detected (NotDetected); Coronavirus CoV-2 (COVID19)PCR Not Detected (NotDetected); Coronavirus HKU1 PCR Not Detected (NotDetected); Coronavirus NL63 PCR Not Detected (NotDetected); Coronavirus OC43PCR Not Detected (NotDetected); Human Metapneumovirus PCR Not Detected (NotDetected); Influenza A PCR Not Detected (NotDetected); Influenza B PCR Not Detected (NotDetected); Mycoplasma pneumoniae PCR Not Detected (NotDetected); Parainfluenza Virus 1 PCR Not Detected (NotDetected); Parainfluenza Virus 2 PCR Not Detected (NotDetected); Parainfluenza Virus 3 PCR Not Detected (NotDetected); Parainfluenza Virus 4 PCR Not Detected (NotDetected); Respiratory Syncytial VirusPCR Not Detected (NotDetected); Rhinovirus/Enterovirus PCR Not Detected (NotDetected)
[2024-08-11 05:02] LABS: D Dimer 8250 ug/L FEU (0-500)
[2024-08-11 05:04] LABS: Basophils # (auto) 0.02 K/uL (0.00-0.20); Basophils % (auto) 0.3 %; Eosinophils # (auto) 0.01 K/uL (0.00-0.50); Eosinophils % (auto) 0.2 %; Immature Granulocytes # (auto) 0.08 K/uL (0.01-0.20); Immature Granulocytes % (auto) 1.4 %; Lymphocytes # (auto) 1.91 K/uL (1.20-3.40); Lymphocytes % (auto) 32.3 %; Monocytes # (auto) 0.59 K/uL (0.11-0.59); Neutrophils % (auto) 55.8 %
[2024-08-11] MEDS: OPTIRAY 320 125ml IV ONE (05:21)
--- NOTE | 2024-08-11 05:30 | XRay Report ---
EXAM: XR chest 1V portable CLINICAL HISTORY: cp TECHNIQUE: An X-ray image of the chest is obtained in AP projection. COMPARISON: 08/06/2024 CR FINDINGS: Pulmonary Parenchyma: Prominent hilar shadows and bronchovascular markings at both lung grijalva denoting congestive changes. Obscured left costophrenic recess likely due to prominent pericardial fat rather than pleural effusion. No evidence of consolidation, collapse, or focal opacities. No pulmonary nodules are identified. No evidence of right pleural effusion or pleural thickening. Heart and Mediastinum: Prominent heart size and shape are normal. No mediastinal widening or masses. No hilar or mediastinal lymphadenopathy. Bony Thorax: Spondylodegenerative changes. Bony thorax appears intact without fractures or deformities. Soft Tissues: Soft tissues overlying the chest wall are unremarkable. IMPRESSION: 1. Prominent hilar shadows and bronchovascular markings at both lung grijalva denoting congestive changes. 2. Obscured left costophrenic recess likely due to prominent pericardial fat rather than pleural effusion. 3. Cardiomegaly. 4. No time interval changes compared to the last study. Electronically signed by Phyllis Klein 08-11-2024 05:30 AM
[2024-08-11] MEDS ORDERED: MELATONIN 3 MG TAB PO PRN (06:28)
[2024-08-11] MEDS ORDERED: MECLIZINE HCL 25 MG TAB PO PRN (06:28)
--- NOTE | 2024-08-11 06:29 | CT Scan Report ---
EXAM: CT angio chest PE protocol CLINICAL HISTORY: PE TECHNIQUE: Contiguous 3.[address] angiographic images of the chest were acquired with the administration of intravenous contrast. Coronal and sagittal reconstructions were obtained. One of these 3D techniques was utilized: Maximum Intensity Pixel (MIP), 3D Reconstructed Images, Volume Rendered Images, Surface Shaded Rendering. One of the following dose reduction techniques were utilized for this exam: Automated exposure control, adjustment of the mA and/or kV according to patient size, and use of iterative reconstruction. CTDI: DLP: COMPARISON: None. FINDINGS: Aorta: The thoracic aorta is normal in caliber. No evidence of aneurysm, dissection, or significant atherosclerotic changes. Aortic arch and descending thoracic aorta are unremarkable. Pulmonary Arteries: Pulmonary arteries are normal in size and opacification. No evidence of pulmonary embolism. No stenosis or filling defects. Superior Vena Cava (SVC) and Inferior Vena Cava (IVC): Normal opacification and caliber. No evidence of thrombus or obstruction. Coronary Arteries: Coronary arteries are well-opacified. No significant stenosis or atherosclerotic changes. Mediastinum: No mediastinal mass . Few subcentimetric lymph nodes are seen in mediastinum. Normal appearance of the thymus. Heart: Cardiac size is enlarged. No pericardial effusion. Lungs: Minimal bilateral pleural effusion is seen with passive atelectasis of underlying lung. Rest of the lungs are clear with no evidence of consolidation, nodules, or masses. Bones: No fractures or lytic/sclerotic lesions of the visualized bony structures. Normal alignment and bone density. Mild degenerative changes are seen in spine. Soft Tissues: Normal appearance of the visualized soft tissues. No abnormal masses or fluid collections. Few hypodense nodules are seen in both lobes of thyroid. IMPRESSION: 1. No evidence of pulmonary embolism. 2. Minimal bilateral pleural effusion with passive atelectasis of underlying lung. Electronically signed by Gabino Vera 08-11-2024 06:28 AM
[2024-08-11 06:45] LABS: Fibrinogen 226 mg/dl (184-400)
[2024-08-11 07:14] LABS: D Dimer 9830 ug/L FEU (0-500)
[2024-08-11] MEDS: MoRPHine SULFATE 2 MG/ML CARP IV PRN (07:25)
[2024-08-11] MEDS: predniSONE 20 MG TAB PO SCH (08:32)
[2024-08-11] MEDS ORDERED: hydrALAZINE HCL 20 MG/ML VIAL IV PRN (08:41)
--- NOTE | 2024-08-11 09:30 | Ultrasound Report ---
US duplex portal hepatic veins HISTORY: 69 years-old Female hepatic steatosis elev LFT COMPARISON: CT abdomen and pelvis 08/06/2024 TECHNIQUE: Multiple real-time sonographic images of the hepatic vascular structures were obtained ass essing grayscale appearance, color and spectral flow FINDINGS: Patent hepatic and portal veins. Hepatopedal flow within the portal vein. Hepatic artery demonstrates normal low resistance waveforms. Hepatic steatosis incidentally noted. IMPRESSION: Patent hepatic and portal veins. ACT 112: Negative or not required by law. The above report was generated using voice recognition software. It may contain grammatical, syntax o r spelling errors. Electronically signed by: Noah Waters M.D. 08/11/2024 9:29 AM
[2024-08-11 10:31] LABS: Albumin Level 3.1 gm/dl (3.4-5.0); Bilirubin Direct 0.4 mg/dl (0-0.2); Bilirubin,Total 0.9 mg/dl (0.2-1.0); Total Protein 5.6 gm/dl (6.0-8.3)
[2024-08-11 10:37] LABS: Troponin I High Sensitivity 28.4 pg/ml (0-14)
--- NOTE | 2024-08-11 12:36 | Gastrointestinal Consultation ---
Date of Consultation August 11, 2024 Assessment & Plan (1) Transaminitis: Plan Patient currently inpatient with complaints of chest pain and shortness of breath. She has elevated transaminitis. it is possible that some of this may be inflammatory in nature. - continue to follow LFTs. - check aldolase, JENNA, AMA, ASMA. hep panel previously negative. - would recommend rheumatology input given history of RA. - would also recommend hematology input given low platelets. - further recommendations to follow, see MD beltrán. Supervising Physician Co-Signing Physician Notes Vertigo and transaminitis. Liver enzymes really not changed much since her recent admission. Methotrexate has been on hold. Methotrexate can be associated with an acute hepatitis though not usually low-dose. Does appear she was taking her methotrexate correctly and with folic acid daily. Should rule out reactivation of virus such as hepatitis B. Check autoimmune markers. Because she is having chest pain radiating into her back should exclude a common duct stone. With this discomfort may actually just be pleuritic. She has no gallbladder. Her biliary ducts appeared nondilated on admission. Cholecystectomy was for stones 10 years ago. Consider steroids. Await liver serology workup. Recommend consultation with her solution manager. Continue to hold methotrexate. History of Present Illness Reason for Consultation: transaminitis Requesting Physician: Goldie HERNANDEZ Attending Physician: Willi De Anda MD History of Present Illness Patient is a 69 year old female with a past medical history of Rheumatoid arthritis on methotrexate, osteopenia, HTN, HLD, who presented to the ED 08/11 for chest pain starting the day prior. She states that the pain is across her entire chest, described as a constant pain, worse with movement but also significant with laying down. She reports SOB and nonproductive cough and pain that radiates to her back. She did try some Tylenol for pain. Patient did have an episode of vomiting this morning and has associated nausea. States that she is not having overt abdominal pain at baseline, but she reports she has not moved her bowels in about a week but has not been eating much. Patient had a recent hospitalization 08/06/2024-08/08/2024 for vertigo and transaminitis. Per notes, it was felt that transaminitis may have been secondary to statins/statin induced myositis. GI asked to see for transaminitis. CT 08/06 Diffuse hepatic steatosis. Mild hepatosplenomegaly. US portal vein - patent hepatic and portal veins. 08/11/24 T bili 0.9, D bili 0.4m AST 454, ALT 368, ALK 106. plts 33 08/06 hep panel unremarkable. Allergies Allergy/AdvReac Type Severity Reaction Status Date / Time acetylcysteine Allergy Severe Throat Verified 08/06/24 12:18 Swelling, Cough, Dry Mouth, Itching Home Medications Medication Instructions Recorded Confirmed Type potassium 99 mg tablet 99 mg PO HS 03/08/20 08/11/24 History Knee immobilizer #1 ea 06/22/23 10/26/23 Rx meclizine 25 mg tablet See Rx Instructions PO TID PRN 02/29/24 08/11/24 Rx dizziness #60 tabs folic acid 1 mg tablet 1 mg PO DAILY 08/06/24 08/11/24 History methotrexate sodium 2.5 mg tablet 15 mg PO WK 08/06/24 08/11/24 History lorazepam 0.5 mg tablet 0.5 mg PO BID PRN vertigo #10 tabs 08/08/24 08/11/24 Rx prednisone 20 mg tablet 20 mg PO DAILY #13 tabs 08/08/24 08/11/24 Rx Patient History Medical History Erythema migrans (Lyme disease) 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 History of colon polyps Nausea and vomiting after administration of anesthetic agent Rheumatoid arthritis History of kidney stones Tylenol overdose (07/10/14) Hepatitis Surgical History History of cystoscopy History of colonoscopy with polypectomy History of wisdom tooth extraction Hx of cholecystectomy H/O tubal ligation Family History Mother Diabetes Hypertension Father Diabetes Lung cancer Stroke Grandmother Diabetes Grandfather Diabetes Daughter Family history of reaction to anesthesia nausea/vomiting Denies family history of Ovarian cancer Prostate cancer Breast cancer Social History Smoking Status: Never smoker Second Hand Exposure: No; Do You Dip or Chew Tobacco: No; Hx Alcohol Use: No Hx Substance Use: No Preferred Language: [place]dean Communication Ability: Effective Visual Impairment: Limited Hearing Ability: Normal Clinical Abstractor Required: No Beliefs That Will Affect Care: None marital status: Current Living Situation: Spouse current occupational status: 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 How many Children do You have: 5 Feels Safe at Home: Yes Childhood Exposure to Second-Hand Smoke: Yes Diet: regular caffeine: Yes (tea and soda) during the past year weight has: remained stable Dental Care, Regularly: Yes Physical Activity Frequency: Daily Seatbelt Use: always Sunscreen Use: Yes ("sometimes") Do you think of yourself as: straight/heterosexual Gender Identity: Female Assistive Devices: Glasses Review of Systems Review of Systems: All systems reviewed & are unremarkable except as noted in HPI & below Physical Exam Constitutional: WD/WN, vitals as above Respiratory: normal respiratory effort, lungs clear to auscultation Cardiovascular: Rate/Rhythm: regular rate and regular rhythm Gastrointestinal (Abdomen): mild diffuse tenderness, no guarding, soft, normal bowel sounds. Psychiatric: Orientation: alert and oriented x 3 Affect: euthymic affect Results & Data Vital Signs (Past 12 Hours) Vital Signs Temp Pulse Pulse Resp BP BP Pulse Ox 08/11/24 10:19 94 H 22 136/94 94 08/11/24 07:11 92 H 24 160/101 H 96 08/11/24 07:10 88 08/11/24 06:21 92 H 08/11/24 05:45 89 L 08/11/24 05:30 91 H 22 189/94 H 92 08/11/24 05:00 78 20 150/85 H 95 08/11/24 05:00 80 20 150/85 H 93 08/11/24 04:55 88 L 08/11/24 04:30 91 H 24 157/92 H 92 08/11/24 04:00 92 H 19 164/94 H 90 08/11/24 04:00 87 16 164/94 H 92 08/11/24 03:51 93 H 08/11/24 03:39 97.9 F 99 H 20 172/92 H 91 O2 Del Method O2 Flow Rate 08/11/24 10:19 Nasal Cannula 3 08/11/24 07:11 Nasal Cannula 3 08/11/24 07:10 08/11/24 06:21 08/11/24 05:45 Nasal Cannula 2 08/11/24 05:30 Nasal Cannula 2 08/11/24 05:00 Nasal Cannula 2 08/11/24 05:00 Room Air 08/11/24 04:55 Room Air, Nasal Cannula 08/11/24 04:30 Room Air 08/11/24 04:00 Room Air 08/11/24 04:00 Room Air 08/11/24 03:51 08/11/24 03:39 Room Air Coding Level of Care Code 61678 INT INP/OBS CARE MIN Diagnoses Transaminitis R74.01
[2024-08-11] MEDS: ONDANSETRON INJ 2 MG/ML 2 ML VIAL IV PRN (12:49)
[2024-08-11 15:25] LABS: C Reactive Protein 1.67 mg/dl (0-0.5)
--- NOTE | 2024-08-11 15:38 | Electrocardiogram Report ---
Test Reason : Blood Pressure : */* mmHG Vent. Rate : 92 BPM Atrial Rate : 92 BPM P-R Int : 128 ms QRS Dur : 78 ms QT Int : 322 ms P-R-T Axes : 46 1 -31 degrees QTcB Int : 398 ms Normal sinus rhythm Poor R wave progression, consider anterior [place] vs. lead placement vs. LVH Abnormal ECG When compared with ECG of 06-Aug-2024 09:33, No significant change was found Confirmed by Davis Elena ([id number]) on 08/11/2024 3:37:44 PM Referred By: REFERRED SELF Confirmed By: Davis Elena
[2024-08-11] MEDS: LORazepam 0.5 MG TAB PO PRN (15:50)
--- NOTE | 2024-08-11 16:11 | XCELERA ---
[id number]
--- NOTE | 2024-08-11 16:46 | Hospitalist Progress Note ---
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 Pt most recent hospitalization 08/06/2024-08/08/2024 for vertigo + transaminitis. Biofire negative; CXR no pneumonia, but cardiomegaly; chest CTA negative for PE, persistent transaminitis, negative portal doppler #Chest pain, reproducible and pleuritic, right sternal border Chest pain starting the day TICKET COUNTER, radiation to back, PE study did not comment on dissection or other changes - EKG w/o evidence of ischemia; Troponin 29.6, 28.4 #Transaminitis previous Anaplasma and Babesia are negative Recent hospitalization 08/06-08/08/2024 for transaminitis and vertigo; suspected that transaminitis was considered viral with worsening 2/2 statin use, H/o cholecystectomy. Most recent CTAP w/ diffuse hepatic steatosis, no hepatosplenomegaly. Denying EtOH use. - BioFire negative; no recent illness since d/c - Zofran prn N/V; clear liquid diet then advance as tolerated - Continue to HOLD statin + methotrexate as these medications may be contributing to elevation - patient has been holding both medications since d/c - GI consult placed- ordered aldolase, rosetta, ama, asma previous hepatitis panel negative #Blood cultures, incidentally to blood culture from last admission are positive for organisms that both seemingly could be contaminant repeat blood cultures und ertaken, ESR checked, echo normal systolic size function no signs of valvular pathology #thrombocytopenia, isolated thrombocytopenia with normal white count and red count likely in the face of liver disease #Vertigo- Meclizine, lorazepam prn #RA- Methotrexate; patient was to follow up with oceanographer geological but has not between last two admissions # constipation will use miralax Dispo: Admit, med/tele VTE Prophylaxis: SCDs; add chemical prophylaxis if prolonged stay Admission and Anticipated Discharge Date Admission Date: August 11, 2024 Results & Data Results & Data Vital Signs (Past 12 Hours) Vital Signs Temp Pulse Pulse Pulse Resp BP BP 08/11/24 12:25 08/11/24 12:25 98.1 F 84 18 160/88 H 08/11/24 10:19 94 H 22 136/94 08/11/24 07:11 92 H 24 160/101 H 08/11/24 07:10 88 08/11/24 06:21 92 H 08/11/24 05:45 08/11/24 05:30 91 H 22 189/94 H 08/11/24 05:00 78 20 150/85 H 08/11/24 05:00 80 20 150/85 H 08/11/24 04:55 Pulse Ox O2 Del Method O2 Flow Rate 08/11/24 12:25 Nasal Cannula 3 08/11/24 12:25 93 Nasal Cannula 3 08/11/24 10:19 94 Nasal Cannula 3 08/11/24 07:11 96 Nasal Cannula 3 08/11/24 07:10 08/11/24 06:21 08/11/24 05:45 89 L Nasal Cannula 2 08/11/24 05:30 92 Nasal Cannula 2 08/11/24 05:00 95 Nasal Cannula 2 08/11/24 05:00 93 Room Air 08/11/24 04:55 88 L Room Air, Nasal Cannula PG Care Time/CCT Total # of Minutes Spent Total Time Spent with Patient: Total time spent is greater than 50% in coordination of care (as documented) at patient's floor/unit and/or counseling patient: Coding Level of Care Code None Diagnoses Chest pain R07.9 Transaminitis R74.01
[2024-08-11] MEDS: FOLIC ACID 1 MG TAB PO SCH (17:08)
[2024-08-11] MEDS: POLYETHYLENE (MIRALAX) 17 GM PACK PO ONE (20:05)
--- NOTE | 2024-08-11 21:24 | Magnetic Resonance Report ---
Exam(s): MRI MRCP EXAM: MR Abdomen Without Intravenous Contrast, MRCP Protocol CLINICAL HISTORY: Reason for exam: elevated LFTs. TECHNIQUE: Multiplanar magnetic resonance images of the abdomen without intravenous contrast using MRCP protocol. COMPARISON: No relevant prior studies available. FINDINGS: Bile ducts: CBD mildly dilated measuring up to 8 mm. No filling defect or stricturing. No stones. Gallbladder: Unremarkable. No stones. Liver: Liver mildly enlarged measuring 18 cm. No focal lesion. Pancreas: Unremarkable. No ductal dilation. Spleen: Unremarkable. No splenomegaly. Adrenals: Unremarkable. No mass. Kidneys and ureters: Unremarkable. No hydronephrosis. Stomach and bowel: Unremarkable. No obstruction. IMPRESSION: 1. CBD mildly dilated measuring up to 8 mm. No filling defect or stricturing. 2. Liver mildly enlarged measuring 18 cm. No focal lesion. Electronically signed by: Juma Worthington MD 08/11/24 21:22 PM
[2024-08-11] MEDS: ACETAMINOPHEN 500 MG TAB PO PRN (21:39)
--- NOTE | 2024-08-12 08:06 | Hospitalist Progress Note ---
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 Pt most recent hospitalization 08/06/2024-08/08/2024 for vertigo + transaminitis. Biofire negative; CXR no pneumonia, but cardiomegaly; chest CTA negative for PE, persistent transaminitis, negative portal doppler #Chest pain, reproducible and pleuritic, right sternal borderresolving PE study negative and did not comment on dissection or other changes - EKG w/o evidence of ischemia; Troponin 29.6, 28.4 likely demand ischemia Echocardiogram with normal size function no regional wall motion abnormalities #Transaminitis improving previous Anaplasma and Babesia are negative Lyme disease negative pending JENNA antimitochondrial anti-smooth muscle antibody and aldolase Recent hospitalization 08/06-08/08/2024 for transaminitis and vertigo; suspected that transaminitis was considered viral with worsening 2/2 statin use, H/o cholecystectomy. Most recent CTAP w/ diffuse hepatic steatosis, no hepatosplenomegaly. Denying EtOH use. - BioFire negative; no recent illness since d/c - Zofran prn N/V; clear liquid diet then advance as tolerated - Continue to HOLD statin + methotrexate as these medications may be contributing to elevation - patient has been holding both medications since d/c - GI consult placed- previous hepatitis panel negative Out pt Rheumatology feels usually does not see transaminase rise to this level #Blood cultures, incidentally to blood culture from last admission are positive for organisms that both seemingly could be contaminant repeat blood cultures undertaken, minor elevation in CRP echo without valvular vegetations repeat blood cultures negative to date #thrombocytopenia, isolated thrombocytopenia with normal white count and red count likely in the face of liver disease #Vertigo- Meclizine, lorazepam prn #RA- Methotrexate currently on hold; patient was to follow up with orientation & mobility specialist but has not between last two admissions # constipation will use miralax VTE Prophylaxis: SCDs; add chemical prophylaxis if prolonged stay cautious with low platelets Given patient feeling tired and slow TSH is currently replete, give stress dose steroids as she has been intermittently on steroids during her last admission 1 dose of diuresis for peripheral edema Admission and Anticipated Discharge Date Admission Date: August 11, 2024 Subjective overall pt subjectively feels improved, less chest pain, does have some peripheral edema, and slightly slow moving Physical Exam Physical Exam: Patient is awake and oriented. She has some trace edema to hands and pitting edema to feet Cardiac exam is regular there is no's sternal costal tenderness any longer There is no sternal rub there is no murmur Lungs are diminished but clear no focal air loss Abdomen is slightly distended (constipation as noted by patient) minor tenderness in the epigastrium and bilateral upper quadrants but no rebound or guarding Results & Data Results & Data Vital Signs (Past 12 Hours) Vital Signs Temp Pulse Resp BP BP Pulse Ox O2 Del Method 08/12/24 07:07 97.7 F 108 H 17 146/89 H 141/87 H 92 Nasal Cannula 08/11/24 22:38 98.1 F 98 H 16 172/97 H 93 Nasal Cannula O2 Flow Rate 08/12/24 07:07 3 08/11/24 22:38 3 Laboratory Results Review coagulation studies review chemistry and LFTs PG Care Time/CCT Total # of Minutes Spent Total Time Spent with Patient: Total time spent is greater than 50% in coordination of care (as documented) at patient's floor/unit and/or counseling patient: Coding Level of Care Code 96181 SUB INP/OBS CARE 3/50MIN Diagnoses Chest pain R07.9 Transaminitis R74.01
[2024-08-12 09:33] LABS: Alanine Aminotransferase 310 U/L (7-52); Albumin Globulin Ratio 1.1 (0.9-2); Albumin Level 2.8 gm/dl (3.4-5.0); Alkaline Phosphatase 97 U/L (34-104); Anion Gap 0 (3-11); Aspartate Aminotransferase 233 U/L (13-39); BUN Creatinine Ratio 31.6 (10-20); Bilirubin,Total 0.7 mg/dl (0.2-1.0); Blood Urea Nitrogen 18 mg/dl (6-23); Calcium 7.5 mg/dl (8.6-10.3); Carbon Dioxide 34 mmol/L (21-32); Chloride 103 mmol/L (98-107); Globulin 2.5 gm/dl (2.5-4.0); Glucose 195 mg/dl (70-99(Fasting)); Potassium 3.8 mmol/L (3.5-5.1); Sodium 137 mmol/L (136-145); Total Protein 5.3 gm/dl (6.0-8.3)
[2024-08-12 09:46] LABS: Prothrombin Time 10.6 Seconds (9.0-12.0)
--- NOTE | 2024-08-12 10:58 | Gastroenterology Progress Note ---
Date of Service August 12, 2024 Assessment & Plan (1) Abnormal transaminases: Plan - can wait aldolase, JENNA, AMA, ASMA which are pending. hep panel previously negative. - will discuss case further with Dr. Nava, further recommendations to follow. Admission and Anticipated Discharge Date Admission Date: August 11, 2024 Supervising Physician Co-Signing Physician Notes Liver enzymes decreased. This may just be the natural process or may be related to introduction of 20 of prednisone. Her autoimmune markers for liver disease are pending. Patient has steatosis. This in combination of significant liver steatosis and elevated liver enzymes with current situation and low platelets may be best not to reuse methotrexate in the future at the discretion of her external relations director, other options available for her rheumatoid. Continue to follow liver enzymes. Noted her hepatitis B surface antigen is negative so this does not represent reactivation hepatitis B related to immunosuppression. Hepatitis C is negative also. Subjective Patient feels slightly better today. she was able to tolerate liquids for breakfast. no further nausea or vomiting. chest pain is about the same as previously. LFTs are trending downward. 08/12/24 T bili 0.7, AST 233, ALT 310, Alk 97. MRCP 08/11 CBD mildly dilated measuring up to 8 mm. No filling defect or stricturing. Liver mildly enlarged measuring 18 cm. No focal lesion. Review of Systems Review of Systems: All systems reviewed & are unremarkable except as noted in HPI & below Physical Exam Constitutional: WD/WN, vitals as above Respiratory: normal respiratory effort, lungs clear to auscultation Cardiovascular: Rate/Rhythm: regular rate and regular rhythm Gastrointestinal (Abdomen): normal bowel sounds, soft, nontender, no hepatosplenomegaly Psychiatric: Orientation: alert and oriented x 3 Results & Data Results & Data Vital Signs (Past 12 Hours) Vital Signs Temp Pulse Resp BP BP Pulse Ox O2 Del Method 08/12/24 07:07 97.7 F 108 H 17 146/89 H 141/87 H 92 Nasal Cannula O2 Flow Rate 08/12/24 07:07 3 Coding Level of Care Code 57461 SUB INP/OBS CARE 07/12MIN Diagnoses Abnormal transaminases R74.8
[2024-08-12] MEDS: FUROSEMIDE INJ 20 MG/2 ML VIAL IV ONE (18:34)
[2024-08-12] MEDS: HYDROCORTISONE SOD 50 MG in SYRINGE 0 ML IV SCH (19:29)
[2024-08-12] MEDS: PANTOprazole 40 MG TAB PO SCH (19:29)
[2024-08-13 06:44] LABS: Hemoglobin 12.7 g/dl (12.0-16.0); Mean Corpuscular Hemoglobin 28.7 pg (25.0-34.0); Mean Corpuscular Hgb Conc 32.6 g/dL (32.0-36.0); Mean Corpuscular Volume 88.2 fL (80.0-100.0); Mean Platelet Volume 12.2 fL (9.4-12.4); Platelet Count 84 K/uL (130-400); RDW Coefficient of Variation 15.4 % (11.5-14.5); RDW Standard Deviation 49.6 fL (36.4-46.3); Red Blood Count 4.42 M/uL (4.20-5.40)
[2024-08-13] MEDS: METOPROLOL TARTRATE 1 MG/ML VIAL IV PRN (09:43)
[2024-08-13] MEDS: SODIUM CHLORIDE 0.9% 500 ML IV ONE (10:34)
[2024-08-13 10:50] LABS: Troponin I High Sensitivity 29.5 pg/ml (0-14)
[2024-08-13] MEDS: MAGNESIUM SULFATE / D5W 1 GM/100 ML BAG IV ONE (11:28)
--- NOTE | 2024-08-13 15:39 | Communication Note ---
Date of Service: August 13, 2024 Platelets improving. Off methotrexate. Autoimmune markers pending. Recheck LFTs tomorrow
--- NOTE | 2024-08-13 19:36 | Hospitalist Progress Note ---
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 Pt most recent hospitalization 08/06/2024-08/08/2024 for vertigo + transaminitis. Biofire negative; CXR no pneumonia, but cardiomegaly; chest CTA negative for PE, persistent transaminitis, negative portal doppler #Chest pain, reproducible and pleuritic, right sternal bordercompletely resolved PE study negative and did not comment on dissection or other changes - EKG w/o evidence of ischemia; Troponin 29.6, 28.4 likely demand ischemia Echocardiogram with normal size function no regional wall motion abnormalities #Atrial flutter resolved with IV metoprolol thyroid normal CRP not significantly elevated #Transaminitis improving previous Anaplasma and Babesia are negative Lyme disease negative pending JENNA antimitochondrial anti-smooth muscle antibody and aldolase Recent hospitalization 08/06-08/08/2024 for transaminitis and vertigo; suspected that transaminitis was considered viral with worsening 2/2 statin use, H/o cholecystectomy. Most recent CTAP w/ diffuse hepatic steatosis, no hepatosplenomegaly. Denying EtOH use. - BioFire negative; no recent illness since d/c - Zofran prn N/V; clear liquid diet then advance as tolerated - Continue to HOLD statin + methotrexate as these medications may be contributing to elevation - patient has been holding both medications since d/c - GI consult placed- previous hepatitis panel negative Out pt Rheumatology feels usually does not see transaminase rise to this level however patient is improving with methotrexate held. #Blood cultures, incidentally to blood culture from last admission are positive for organisms that both seemingly could be contaminant repeat blood cultures undertaken, minor elevation in CRP echo without valvular vegetations repeat blood cultures negative to date #thrombocytopenia, isolated thrombocytopenia with normal white count and red count likely in the face of liver disease improving #Vertigo- Meclizine, lorazepam prn #RA- Methotrexate currently on hold; patient was to follow up with business planning manager but has not between last two admissions # constipation will use miralax #Possible adrenal insufficiency. Patient clinically improved most with hydrocortisone treatment we will convert to hydrocortisone twice daily treatment random morning cortisol be checked on 08/14 eventual referral to outpatient endocrinology for tapering of hydrocortisone and Cosyntropin stim test VTE Prophylaxis: SCDs; add chemical prophylaxis if prolonged stay cautious with low platelets Admission and Anticipated Discharge Date Admission Date: August 13, 2024 Subjective Patient developed a flutter this morning was transferred to PCU got a dose of 5 mg metoprolol converted to normal sinus rhythm received some magnesium. Cardiology consult was undertaken confirming this was flutter During the rapid rate in 150s 160s patient denies any chest pain or feeling of dyspnea she had no feelings of palpitations. Physical Exam Physical Exam: Physical exam the patient looks improved today after stress dose steroids. She had less peripheral edema she was more awake and alert Cardiac exam was tachycardic and converted to sinus rhythm in the 80s. No murmurs there is no rubs Lungs are without abnormal breath sounds good airway movement Abdomen is with persistent discomfort in the right upper quadrant Results & Data Results & Data Vital Signs (Past 12 Hours) Vital Signs Temp Pulse Pulse Pulse Resp BP BP 08/13/24 15:45 08/13/24 15:45 89 18 08/13/24 11:00 98.1 F 82 20 08/13/24 10:00 158 H 83/68 L 08/13/24 09:43 155 H 93/70 L 08/13/24 09:30 08/13/24 09:22 160 H 08/13/24 09:20 98.1 F 155 H 22 08/13/24 08:06 98.1 F 155 H 16 116/70 08/13/24 07:54 157 H 08/13/24 07:30 BP Pulse Ox O2 Del Method O2 Flow Rate 08/13/24 15:45 120/79 08/13/24 15:45 125/76 94 Nasal Cannula 3 08/13/24 11:00 100/69 98 Nasal Cannula 3 08/13/24 10:00 08/13/24 09:43 08/13/24 09:30 Nasal Cannula 3.5 08/13/24 09:22 80/60 L 08/13/24 09:20 107/70 97 Nasal Cannula 3.6 08/13/24 08:06 95 Nasal Cannula 3 08/13/24 07:54 95 Nasal Cannula 3.5 08/13/24 07:30 Nasal Cannula 3 Laboratory Results Reviewed CBC reviewed total CK reviewed troponin reviewed Free T4 PG Care Time/CCT Total # of Minutes Spent Total Time Spent with Patient: Total time spent is greater than 50% in coordination of care (as documented) at patient's floor/unit and/or counseling patient: Coding Level of Care Code 04011 SUB INP/OBS CARE 3/50MIN Diagnoses Chest pain R07.9 Transaminitis R74.01
--- NOTE | 2024-08-13 20:29 | Cardiology Consultation ---
Date of Consultation August 13, 2024 Assessment & Plan (1) Paroxysmal atrial flutter: (2) Paroxysmal atrial fibrillation: (3) Abnormal transaminases: (4) Elevated troponin: Plan ASSESSMENT/PLAN: 1. Atrial flutter: Paroxysmal. She appeared to be completely asymptomatic. Developed while here, with her presenting acute illness. Self resolved, spontaneously converting to what appears to be atrial fibrillation before converting to sinus. We discussed the diagnosis in detail. We discussed treatment strategies. For now, can use beta-mahad in the form of metoprolol 25 mg p.o. twice daily. Recommend anticoagulation therapy if no contraindication. She has had thrombocytopenia but if continues to trend upward, would consider heparin drip and eventually Eliquis. Difficult to know if this is a first event as she was asymptomatic. Would consider outpatient monitor for 30 days. Was briefly hypotensive when heart rates were quite elevated. 2. Atrial fibrillation: Paroxysmal. Occurred for approximately 1 hour when converting from atrial flutter to atrial fibrillation and then from A-fib to sinus rhythm. Had only received intravenous metoprolol. Asymptomatic. Start metoprolol 25 mg twice daily. Recommend anticoagulation for stroke risk reduction as above. May be a lone event or paroxysmal in general as it is difficult to know if she is asymptomatic and although she wears a Fitbit/smart watch, does not monitor her heart rate. 30-day event monitor as above. 3. Elevated troponin: Minimal elevation of her high-sensitivity troponin and likely due to demand ischemia with her other ongoing issues. 4. Elevated transaminase levels: As per hospitalist service and GI. 5. Rheumatoid arthritis: Has been on methotrexate for greater than 15 years. 6. Thrombocytopenia: Improving. As per primary hospitalist service. 7. Disposition: Cardiology will continue to follow. Patient care has been discussed with Dr. De Anda of the primary hospitalist service. Thank you for allowing me to participate in the care of your patient. Please call for any other questions or concerns. Sincerely, Chava Arguello M.D. History of Present Illness Reason for Consultation: atrial flutter Requesting Physician: Willi De Anda MD Attending Physician: Willi De Anda MD History of Present Illness Mrs. Arce is a very pleasant 69-year-old female with a history significant for rheumatoid arthritis, hypertension, dyslipidemia. She was hospitalized initially on 08/11/2024 for reported chest pain and elevated transaminase levels. On presentation, her ECG on 08/11/2024 demonstrated sinus rhythm at 92 bpm and otherwise nonspecific T wave abnormality. Her transaminase levels were elevated since 08/06/2024 and improved for 3 days before once again increasing, only to improve again today. They remain elevated however. This morning, she was noted to be tachycardic while she was on and on telemetry floor just before 8 AM. Her heart rate was in the 150s to 160s. ECG done at that time demonstrated atrial flutter with rapid ventricular response at 165 bpm. She states that she was completely asymptomatic in that regard. She denied chest pain, shortness of breath, syncope, near syncope, or palpitations. She has chronic edema involving her hands, feet, and her legs. She denies documented fever prehospital but had a low-grade fever here of 38.3 C on 08/11/2024. She has had nausea and intermittent vomiting. She had diarrhea prehospital. She notes some abdominal discomfort. Nursing staff reports that she has been orthostatic however it was again checked this afternoon and improved, without significant orthostatic changes. She has since converted to sinus rhythm and noted no difference in how she felt compared to when she was in atrial flutter with rapid ventricular response and then briefly what appears to be atrial fibrillation. Review of systems: As above. Family history: Father had Alzheimer's. No known premature CAD. Social history: She denies tobacco, alcohol, or drug abuse. She is and lives at home with her . She has 5 children. She works at [employer] Her and son were present at the bedside. Her [id number] presented to the bedside. Allergies Allergy/AdvReac Type Severity Reaction Status Date / Time acetylcysteine Allergy Severe Throat Verified 08/06/24 12:18 Swelling, Cough, Dry Mouth, Itching Home Medications Medication Instructions Recorded Confirmed Type potassium 99 mg tablet 99 mg PO HS 03/08/20 08/11/24 History Knee immobilizer #1 ea 06/22/23 10/26/23 Rx meclizine 25 mg tablet See Rx Instructions PO TID PRN 02/29/24 08/11/24 Rx dizziness #60 tabs folic acid 1 mg tablet 1 mg PO DAILY 08/06/24 08/11/24 History methotrexate sodium 2.5 mg tablet 15 mg PO WK 08/06/24 08/11/24 History lorazepam 0.5 mg tablet 0.5 mg PO BID PRN vertigo #10 tabs 08/08/24 08/11/24 Rx prednisone 20 mg tablet 20 mg PO DAILY #13 tabs 08/08/24 08/11/24 Rx Problem List (Updated 08/13/24 @ 20:45 by Alex Arguello MD) Paroxysmal atrial fibrillation Paroxysmal atrial flutter Elevated troponin (Acute) Bilateral edema of lower extremity (Acute) Abnormal transaminases (Acute) Thrombocytopenia (Acute) Chest pain (Acute) Pancytopenia Rheumatoid arthritis Elevated troponin Volume depletion Viral illness Statin-induced myositis Elevated creatine kinase Rhabdomyolysis Acute diarrhea Elevated troponin Transaminitis Left thyroid nodule (Acute) Non-ST elevation DC (NSTEMI) (Acute) Elevated aspartate aminotransferase level (Acute) Nausea & vomiting (Acute) Thrombocytopenia (Acute) Dizziness (Acute) Blurry vision, bilateral Nausea in adult Unsteady gait when walking Frontal headache Fatigue Vertigo Acute medial meniscal tear Closed fibular fracture (~06/15/23) Tibial plateau fracture, left (~06/15/23) Swelling of left lower extremity Knee pain, left Vitamin D3 deficiency Screening for heart disease Osteopenia Rheumatoid arthritis Esophageal reflux (Acute) Hypertension Hyperlipidemia Peripheral edema (Chronic) Patient History Medical History Erythema migrans (Lyme disease) 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 History of colon polyps Nausea and vomiting after administration of anesthetic agent Rheumatoid arthritis History of kidney stones Tylenol overdose (07/10/14) Hepatitis Surgical History History of cystoscopy History of colonoscopy with polypectomy History of wisdom tooth extraction Hx of cholecystectomy H/O tubal ligation Family History Mother Diabetes Hypertension Father Diabetes Lung cancer Stroke Grandmother Diabetes Grandfather Diabetes Daughter Family history of reaction to anesthesia nausea/vomiting Denies family history of Ovarian cancer Prostate cancer Breast cancer Social History Smoking Status: Never smoker Second Hand Exposure: No; Do You Dip or Chew Tobacco: No; Hx Alcohol Use: No Hx Substance Use: No Preferred Language: Dominican Communication Ability: Effective Visual Impairment: Limited Hearing Ability: Normal Consolidator Required: No Beliefs That Will Affect Care: None marital status: Current Living Situation: Spouse current occupational status: retired 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 Alert and oriented. HEENT: Anicteric sclera. Neck: No JVD. No bruits. Normal carotid upstrokes bilaterally. Cardiac: Regular. Normal S1-S2. No murmurs, rubs, or gallops. Pulmonary: Clear to auscultation bilaterally without wheezes, rales, or rhonchi. Abdomen: Soft, nondistended, with normoactive bowel sounds. Right upper quadrant tenderness, mild. No bruits noted. Extremities: 2+ radial pulses bilaterally. 2+ posterior tibialis pulses bilaterally. No pitting edema or cyanosis. Results & Data Vital Signs (Past 12 Hours) Vital Signs Temp Pulse Pulse Pulse Resp BP BP 08/13/24 19:59 37.0 C 81 18 142/85 H 08/13/24 15:45 120/79 08/13/24 15:45 89 18 125/76 08/13/24 11:00 36.7 C 82 20 100/69 08/13/24 10:00 158 H 83/68 L 08/13/24 09:43 155 H 93/70 L 08/13/24 09:30 08/13/24 09:22 160 H 80/60 L 08/13/24 09:20 36.7 C 155 H 22 107/70 Pulse Ox O2 Del Method O2 Flow Rate 08/13/24 19:59 95 Nasal Cannula 3.0 08/13/24 15:45 08/13/24 15:45 94 Nasal Cannula 3 08/13/24 11:00 98 Nasal Cannula 3 08/13/24 10:00 08/13/24 09:43 08/13/24 09:30 Nasal Cannula 3.5 08/13/24 09:22 08/13/24 09:20 97 Nasal Cannula 3.6 Laboratory Results Laboratory Results - last 24 hr 08/13/24 08/13/24 05:13 10:04 WBC 8.70 RBC 4.42 Hgb 12.7 Hct 39.0 MCV 88.2 MCH 28.7 MCHC 32.6 RDW Std Deviation 49.6 H RDW Coeff of Macy 15.4 H Plt Count 84 L MPV 12.2 Total Creatine Kinase 54 Troponin I High Sens 29.5 H Free T4 0.67 Diagnostic Findings Telemetry personally reviewed: Atrial flutter with heart rate up to 170s. Appeared to convert to atrial fibrillation with significant improvement with heart rate, however still rapid ventricular response at approximately 10:03 AM. Converted to sinus rhythm at 11:07 AM on 08/13/2024. ECGs personally reviewed: ECG 08/11/2024 3:47 AM: Sinus rhythm 92 bpm. Nonspecific T wave abnormality. ECG 08/13/2024 at 7:28 AM: Atrial flutter with rapid ventricular response 165 bpm. Inferior T wave inversion. Echo report reviewed from 08/11/2024: Normal LV size, wall motion, systolic function. EF 55-3%. No significant valvular abnormalities. History and physical report reviewed. GI note reviewed from 08/12/2024. Labs reviewed and notable for new onset thrombocytopenia in July 2024 which reached a low of 33 on 08/11/2024 but has since trended upward to 84. Normal hemoglobin. Normal INR. Normal potassium. Normal renal function. Elevated transaminase levels as previously described. Normal total bilirubin. Elevated high-sensitivity troponin peaking at 38 on 08/06/2024. Albumin 2.8. Normal TSH. CTA chest 08/11/2024: No evidence of pulmonary embolism. No thoracic aortic aneurysm/dissection. MRCP 08/11/2024: Mildly dilated CBD. No filling defect or stricture. Mildly enlarged liver. Medications Administered Current Inpatient Medications Acetaminophen (Acetaminophen 500 Mg Tab) 1,000 mg PO Q8H PRN PRN Reason: Pain or Fever Stop: 09/10/24 20:17 Last Admin: 08/13/24 18:26 Dose: 1,000 mg Dexamethasone (Dexamethasone 4 Mg Tab) 4 mg PO DAILY [facility] Stop: 09/13/24 08:59 Folic Acid (Folic Acid 1 Mg Tab) 1 mg PO DAILY [facility] Stop: 09/10/24 08:59 Last Admin: 08/13/24 08:09 Dose: 1 mg Hydralazine HCl (Hydralazine Hcl 20 Mg/Ml Vial) 10 mg IV Q8 PRN PRN Reason: sbp>185 or dbp>95 Stop: 09/10/24 08:40 Lorazepam (Lorazepam 0.5 Mg Tab) 0.5 mg PO BID PRN PRN Reason: vertigo Stop: 09/10/24 06:27 Last Admin: 08/12/24 05:42 Dose: 0.5 mg Meclizine HCl (Meclizine Hcl 25 Mg Tab) 0 mg PO TID PRN PRN Reason: dizziness Stop: 09/10/24 06:27 Melatonin (Melatonin 3 Mg Tab) 3 mg PO HS PRN PRN Reason: Insomnia Stop: 09/10/24 06:27 Metoprolol Tartrate (Metoprolol Tartrate 1 Mg/Ml Vial) 5 mg IV Q4 PRN PRN Reason: sbp > 185, dbp >95, HR >120 Stop: 09/12/24 09:17 Last Admin: 08/13/24 09:43 Dose: 5 mg Morphine Sulfate (Morphine Sulfate 2 Mg/Ml Carp) 2 mg IV Q1H PRN PRN Reason: Pain Stop: 08/25/24 07:03 Last Admin: 08/11/24 10:59 Dose: 2 mg Ondansetron HCl (Ondansetron Inj 2 Mg/Ml 2 Ml Vial) 4 mg IV Q4H PRN PRN Reason: Nausea Stop: 09/10/24 06:00 Ondansetron HCl (Ondansetron Inj 2 Mg/Ml 2 Ml Vial) 4 mg IV Q6H PRN PRN Reason: Nausea Stop: 09/10/24 06:27 Last Admin: 08/11/24 19:56 Dose: 4 mg Pantoprazole Sodium (Pantoprazole 40 Mg Tab) 40 mg PO BID DEMOND Stop: 09/11/24 20:59 Last Admin: 08/13/24 08:09 Dose: 40 mg PG Care Time/CCT Total # of Minutes Spent Total Time Spent with Patient: Total time spent is greater than 50% in coordination of care (as documented) at patient's floor/unit and/or counseling patient: Coding Level of Care Code 03884 INT INP/OBS CARE 3/75MIN Diagnoses Paroxysmal atrial flutter I48.92 Paroxysmal atrial fibrillation I48.0 Abnormal transaminases R74.8 Elevated troponin R79.89
[2024-08-13] MEDS: METOPROLOL TARTRATE 25 MG TAB PO SCH (21:52)
[2024-08-14 07:50] LABS: Hematocrit (blood only) 38.9 % (37.0-47.0); Hemoglobin 12.4 g/dl (12.0-16.0); Mean Corpuscular Hemoglobin 28.3 pg (25.0-34.0); Mean Corpuscular Hgb Conc 31.9 g/dL (32.0-36.0); Mean Corpuscular Volume 88.8 fL (80.0-100.0); Mean Platelet Volume 12.2 fL (9.4-12.4); Platelet Count 113 K/uL (130-400); RDW Coefficient of Variation 14.9 % (11.5-14.5); RDW Standard Deviation 48.6 fL (36.4-46.3); Red Blood Count 4.38 M/uL (4.20-5.40); White Blood Count 8.35 K/ul (4.8-10.8)
[2024-08-14 08:05] LABS: Albumin Level 2.7 gm/dl (3.4-5.0); Bilirubin,Total 0.8 mg/dl (0.2-1.0); Calcium 8.3 mg/dl (8.6-10.3); Creatinine Clr Calc Pharmacy 89.4 ml/min; Globulin 2.7 gm/dl (2.5-4.0); Potassium 4.3 mmol/L (3.5-5.1); Total Protein 5.4 gm/dl (6.0-8.3)
--- NOTE | 2024-08-14 08:30 | Cardiology Progress Note ---
Date of Service August 14, 2024 Assessment & Plan (1) Paroxysmal atrial flutter: (2) Paroxysmal atrial fibrillation: (3) Abnormal transaminases: (4) Elevated troponin: Plan ASSESSMENT/PLAN: 1. Atrial flutter: Paroxysmal. She appeared to be completely asymptomatic. Developed while here after admission. Self resolved, spontaneously converting to what appears to be atrial fibrillation before converting to sinus. Initiated metoprolol 25 mg p.o. twice daily. Recommend anticoagulation therapy if no contraindication. Consider heparin drip and eventually Eliquis, now that thrombocytopenia has improved, if okay from hospitalist standpoint. Difficult to know if this is a first event as she was asymptomatic. Would consider outpatient monitor for 30 days. Was briefly hypotensive when heart rates were quite elevated. Plan discussed with patient and her daughters again today. 2. Atrial fibrillation: Paroxysmal. Occurred for approximately 1 hour when converting from atrial flutter to atrial fibrillation and then from A-fib to sinus rhythm. Had only received intravenous metoprolol. Asymptomatic. Started metoprolol 25 mg twice daily. Recommend anticoagulation for stroke risk reduction as above. May be a lone event or paroxysmal in general as it is diff icult to know if she is asymptomatic and although she wears a Fitbit/smart watch, does not monitor her heart rate. 30-day event monitor as above. 3. Elevated troponin: Minimal elevation of her high-sensitivity troponin and likely due to demand ischemia with her other ongoing issues. 4. Elevated transaminase levels: As per hospitalist service and GI. Improved. 5. Rheumatoid arthritis: Has been on methotrexate for greater than 15 years. 6. Thrombocytopenia: Improving. As per primary hospitalist service. 7. Disposition: Cardiology will sign off at this time. Will arrange outpatient 30-day event monitor and outpatient follow-up in the cardiology office. Patient care has been communicated with Dr. Naylor of the primary hospitalist service. Admission and Anticipated Discharge Date Admission Date: August 13, 2024 Subjective Patient was seen this morning with her daughter at the bedside. Another daughter listened in via speaker phone. She has a headache and is nauseated. She denies chest pain, shortness of breath, syncope, near syncope, palpitations, or bleeding. Her abdominal pain has improved. Nursing staff was at the bedside administering medications for her nausea and headache. Physical Exam Physical Exam: Gen.: No acute distress. Alert. HEENT: Anicteric sclera. Neck: No JVD. Cardiac: Regular. Normal S1-S2. No murmurs, rubs, or gallops. Pulmonary: Clear to auscultation bilaterally without wheezes, rales, or rhonchi. Abdomen: Soft, nondistended, nontender, with normoactive bowel sounds. Extremities: 2+ radial pulses bilaterally. 2+ posterior tibialis pulses bilaterally. No pitting edema or cyanosis. Results & Data Vital Signs (Past 12 Hours) Vital Signs Temp Pulse Pulse Resp BP Pulse Ox O2 Del Method 08/14/24 07:41 37.1 C 75 16 143/85 H 96 Nasal Cannula 08/14/24 03:13 37.0 C 75 16 143/92 H 95 Nasal Cannula 08/13/24 23:42 75 08/13/24 22:59 36.8 C 73 18 128/79 95 Nasal Cannula 08/13/24 21:00 Nasal Cannula O2 Flow Rate 08/14/24 07:41 2 08/14/24 03:13 3.0 08/13/24 23:42 08/13/24 22:59 3.0 08/13/24 21:00 3 Laboratory Results Laboratory Results - last 24 hr 08/13/24 08/14/24 10:04 07:02 WBC 8.35 RBC 4.38 Hgb 12.4 Hct 38.9 MCV 88.8 MCH 28.3 MCHC 31.9 L RDW Std Deviation 48.6 H RDW Coeff of Macy 14.9 H Plt Count 113 L MPV 12.2 Sodium 141 Potassium 4.3 Chloride 101 Carbon Dioxide 40 H Anion Gap 0 L BUN 17 Creatinine 0.63 Est Cr Clr Drug Dosing 89.4 eGFR 95.97 BUN/Creatinine Ratio 27.0 H Glucose 113 H Calcium 8.3 L Total Bilirubin 0.8 AST 39 ALT 143 H Alkaline Phosphatase 74 Total Creatine Kinase 54 Troponin I High Sens 29.5 H Total Protein 5.4 L Albumin 2.7 L Globulin 2.7 Albumin/Globulin Ratio 1.0 Cortisol AM Sample 16.59 Diagnostic Findings Labs reviewed and notable for significantly improved transaminase levels with AST now being normal, stable renal function, normal potassium, normal hemoglobin, mild thrombocytopenia, but much improved. Telemetry personally reviewed: She has maintained sinus rhythm. Medications Administered Current Inpatient Medications Acetaminophen (Acetaminophen 500 Mg Tab) 1,000 mg PO Q8H PRN PRN Reason: Pain or Fever Stop: 09/10/24 20:17 Last Admin: 08/14/24 03:28 Dose: 1,000 mg Dexamethasone (Dexamethasone 4 Mg Tab) 4 mg PO DAILY [facility] Stop: 09/13/24 08:59 Folic Acid (Folic Acid 1 Mg Tab) 1 mg PO DAILY [facility] Stop: 09/10/24 08:59 Last Admin: 08/13/24 08:09 Dose: 1 mg Hydralazine HCl (Hydralazine Hcl 20 Mg/Ml Vial) 10 mg IV Q8 PRN PRN Reason: sbp>185 or dbp>95 Stop: 09/10/24 08:40 Lorazepam (Lorazepam 0.5 Mg Tab) 0.5 mg PO BID PRN PRN Reason: vertigo Stop: 09/10/24 06:27 Last Admin: 08/12/24 05:42 Dose: 0.5 mg Meclizine HCl (Meclizine Hcl 25 Mg Tab) 0 mg PO TID PRN PRN Reason: dizziness Stop: 09/10/24 06:27 Melatonin (Melatonin 3 Mg Tab) 3 mg PO HS PRN PRN Reason: Insomnia Stop: 09/10/24 06:27 Metoprolol Tartrate (Metoprolol Tartrate 1 Mg/Ml Vial) 5 mg IV Q4 PRN PRN Reason: sbp > 185, dbp >95, HR >120 Stop: 09/12/24 09:17 Last Admin: 08/13/24 09:43 Dose: 5 mg Metoprolol Tartrate (Metoprolol Tartrate 25 Mg Tab) 25 mg PO BID [facility] Stop: 09/12/24 20:59 Last Admin: 08/13/24 21:52 Dose: 25 mg Morphine Sulfate (Morphine Sulfate 2 Mg/Ml Carp) 2 mg IV Q1H PRN PRN Reason: Pain Stop: 08/25/24 07:03 Last Admin: 08/11/24 10:59 Dose: 2 mg Ondansetron HCl (Ondansetron Inj 2 Mg/Ml 2 Ml Vial) 4 mg IV Q4H PRN PRN Reason: Nausea Stop: 09/10/24 06:00 Ondansetron HCl (Ondansetron Inj 2 Mg/Ml 2 Ml Vial) 4 mg IV Q6H PRN PRN Reason: Nausea Stop: 09/10/24 06:27 Last Admin: 08/11/24 19:56 Dose: 4 mg Pantoprazole Sodium (Pantoprazole 40 Mg Tab) 40 mg PO BID [facility] Stop: 09/11/24 20:59 Last Admin: 08/13/24 20:56 Dose: 40 mg PG Care Time/CCT Total # of Minutes Spent Total Time Spent with Patient: Total time spent is greater than 50% in coordination of care (as documented) at patient's floor/unit and/or counseling patient: Coding Level of Care Code 76167 SUB INP/OBS CARE 3/50MIN Diagnoses Paroxysmal atrial flutter I48.92 Paroxysmal atrial fibrillation I48.0 Abnormal transaminases R74.8 Elevated troponin R79.89
[2024-08-14 08:37] LABS: Basophils # (auto) 0.02 K/uL (0.00-0.20); Basophils % (auto) 0.2 %; Eosinophils # (auto) 0.03 K/uL (0.00-0.50); Eosinophils % (auto) 0.4 %; Immature Granulocytes # (auto) 0.05 K/uL (0.01-0.20); Immature Granulocytes % (auto) 0.6 %; Lymphocytes # (auto) 2.76 K/uL (1.20-3.40); Lymphocytes % (auto) 33.1 %; Monocytes # (auto) 1.54 K/uL (0.11-0.59); Monocytes % (auto) 18.4 %; Neutrophils # (auto) 3.95 K/uL (1.40-6.50); Neutrophils % (auto) 47.3 %
[2024-08-14] MEDS: dexAMETHasone 4 MG TAB PO SCH (09:18)
--- NOTE | 2024-08-14 12:34 | Hospitalist Progress Note ---
Date of Service August 14, 2024 Assessment & Plan (1) Chest pain: (2) Transaminitis: Plan 69-year-old female PMHx RA on methotrexate/steroids, osteopenia, HTN, HLD presenting for chest pain starting the morning HOOKMAN. Pt most recent hospitalization 08/06/2024-08/08/2024 for vertigo + transaminitis. Biofire negative; CXR no pneumonia, but cardiomegaly; chest CTA negative for PE, persistent transaminitis, negative portal doppler Afib/ A flutter Cardiology on board will start Heparin by weight today Trnasition to PO Eliquis tomorrow Rate control with Metoprolol 25mg BID outpatient 30 day event monitor #Chest pain, reproducible and pleuritic, right sternal bordercompletely re solved PE study negative and did not comment on dissection or other changes - EKG w/o evidence of ischemia; Troponin 29.6, 28.4 likely demand ischemia Echocardiogram with normal size function no regional wall motion abnormalities #Transaminitis improving previous Anaplasma and Babesia are negative Lyme disease negative pending JENNA antimitochondrial anti-smooth muscle antibody and aldolase Recent hospitalization 08/06-08/08/2024 for transaminitis and vertigo; suspected that transaminitis was considered viral with worsening 2/2 statin use, H/o cholecystectomy. Most recent CTAP w/ diffuse hepatic steatosis, no hepatosplenomegaly. Denying EtOH use. - BioFire negative; no recent illness since d/c - Zofran prn N/V; clear liquid diet then advance as tolerated - GI consult placed- previous hepatitis panel negative Out pt Rheumatology feels usually does not see transaminase rise to this level however patient is improving with methotrexate held. #Blood cultures, incidentally to blood culture from last admission are positive for organisms that both seemingly could be contaminant repeat blood cultures undertaken, minor elevation in CRP echo without valvular vegetations repeat blood cultures negative to date #thrombocytopenia, isolated thrombocytopenia with normal white count and red count likely in the face of liver disease improving #Vertigo- Meclizine, lorazepam prn #RA- Methotrexate currently on hold; patient was to follow up with enrichment assistant but has not between last two admissions # constipation will use miralax #Possible adrenal insufficiency. Patient clinically improved most with hydrocortisone treatment we will convert to hydrocortisone twice daily treatment random morning cortisol be checked on 08/14 eventual referral to outpatient endocrinology for tapering of hydrocortisone and Cosyntropin stim test VTE Prophylaxis: SCDs; add chemical prophylaxis if prolonged stay cautious with low platelets Hopefully d/c home in the next 24 hrs Admission and Anticipated Discharge Date Admission Date: August 13, 2024 Subjective patient seen and examined, daughter by the side Review of Systems Review of Systems: All systems reviewed are negative, apart from the ones contained in the history. Physical Exam Physical Exam: The patient is awake, alert and oriented 3, well developed and well nourished, normocephalic and atraumatic, lying in bed and in no acute distress. HEENT--PERRL, EOMI, mucous membranes and oropharynx mildly dry Neck--supple. No JVD. No bruits. Thyroid normal, trachea midline, no adenopathy. Heart--normal S1 and S2. No murmurs, rubs or gallops. Lungs--clear bilaterally, no respiratory distress, no accessory muscle use. Abdomen--normal bowel sounds and soft. Extremities--no cyanosis or clubbing. No edema. Dermatologic--normal skin turgor, normal color, no abnormal lymph nodes, no rash. Neurologic--cranial nerves II through XII grossly intact. Rheumatologic--normal range of motion. Psychiatric--normal affect. Results & Data Results & Data Vital Signs (Past 12 Hours) Vital Signs Temp Pulse Pulse Resp BP Pulse Ox O2 Del Method 08/14/24 11:15 98.4 F 70 18 118/76 95 Nasal Cannula 08/14/24 09:35 Nasal Cannula 08/14/24 08:00 70 08/14/24 07:41 98.8 F 75 16 143/85 H 96 Nasal Cannula 08/14/24 03:13 98.6 F 75 16 143/92 H 95 Nasal Cannula O2 Flow Rate 08/14/24 11:15 3 08/14/24 09:35 3 08/14/24 08:00 08/14/24 07:41 2 08/14/24 03:13 3.0 PG Care Time/CCT Total # of Minutes Spent Total Time Spent with Patient: Total time spent is greater than 50% in coordination of care (as documented) at patient's floor/unit and/or counseling patient: Coding Level of Care Code 30690 SUB INP/OBS CARE 2/35MIN Diagnoses Chest pain R07.9 Transaminitis R74.01 Time Spent (min) 35
[2024-08-14 13:32] LABS: Hematocrit (blood only) 39.9 % (37.0-47.0); Hemoglobin 12.8 g/dl (12.0-16.0); Mean Corpuscular Hgb Conc 32.1 g/dL (32.0-36.0); Mean Corpuscular Volume 87.3 fL (80.0-100.0); Mean Platelet Volume 11.9 fL (9.4-12.4); Platelet Count 124 K/uL (130-400); RDW Standard Deviation 47.8 fL (36.4-46.3); Red Blood Count 4.57 M/uL (4.20-5.40); White Blood Count 7.43 K/ul (4.8-10.8)
[2024-08-14] MEDS: traMADol HCL 50 MG TABLET PO STA (13:46)
[2024-08-14 14:02] LABS: Partial Thromboplastin Ratio 0.9; Partial Thromboplastin Time 23 Seconds (21-31); Prothrombin Time 10.6 Seconds (9.0-12.0)
[2024-08-14 14:29] LABS: Basophils # (auto) 0.01 K/uL (0.00-0.20); Basophils % (auto) 0.1 %; Eosinophils # (auto) 0.03 K/uL (0.00-0.50); Eosinophils % (auto) 0.4 %; Immature Granulocytes # (auto) 0.05 K/uL (0.01-0.20); Immature Granulocytes % (auto) 0.7 %; Lymphocytes # (auto) 1.37 K/uL (1.20-3.40); Lymphocytes % (auto) 18.4 %; Monocytes # (auto) 0.94 K/uL (0.11-0.59); Monocytes % (auto) 12.7 %; Neutrophils # (auto) 5.03 K/uL (1.40-6.50); Neutrophils % (auto) 67.7 %
[2024-08-14] MEDS: HEPARIN 25000 UNIT/500 ML D5W 25,000 UNITS/500 ML BAG IV SCH (14:48)
[2024-08-14] MEDS: Heparin IV Adult Wt-Based Low-Dose *NO* INITIAL Bolus Protocol IV STA (15:05)
--- NOTE | 2024-08-14 15:50 | Communication Note ---
Date of Service: August 14, 2024 Liver test much improved. Not clear if this is related to steroids though does correspond to the introduction. Methotrexate also on hold. Low-dose m ethotrexate not typically associated with this type of hepatitis. Patient's platelets are also improving. Autoimmune markers for autoimmune hepatitis pending
[2024-08-14] MEDS: KETOROLAC TROMETHAMINE 15 MG/ML VIAL IV ONE (16:25)
[2024-08-14] MEDS: ONDANSETRON INJ 2 MG/ML 2 ML VIAL IV PRN (17:08)
--- NOTE | 2024-08-14 17:11 | CT Scan Report ---
EXAM: CT Head Without Intravenous Contrast INDICATION: Headache. Vertigo. TECHNIQUE: Axial computed tomography images of the head/brain without intravenous contrast. Sagittal and/or coronal reformats are provided. Sagittal and coronal reformatted images were created and reviewed. This CT exam was performed using one or more of the following dose reduction techniques: automated exposure control, adjustment of the mA and/or kV according to patient size, and/or use of iterative reconstruction technique. COMPARISON: 08/06/2024 FINDINGS: Limitations: None. Brain and extra-axial spaces: No abnormality noted. No hemorrhage. No significant white matter disease. No edema. No ventriculomegaly. Bones/joints: No acute changes. Soft tissues: No significant abnormality noted. Vasculature: No acute abnormality noted. Sinuses: No layering fluid in the visualized portions of the paranasal sinuses. Mastoid air cells: No mastoid effusion. Orbits: No significant abnormality noted. IMPRESSION: No abnormality noted. ACT 112: Negative or not required by law. Electronically signed by Faina Rosen 08-14-2024 4:27 PM
[2024-08-14 17:32] LABS: Aldolase 42.9 U/L (< OR = 8.1); Anti Mitochondrial Antibody NEGATIVE (NEGATIVE); Anti Nuclear Antibody Screen POSITIVE (NEGATIVE); Smooth Muscle Antibody NEGATIVE (NEGATIVE)
[2024-08-14 21:29] LABS: ANTI-Xa, UFH(UnfractionatedHep 0.33 IU/ml (0.3-0.7)
[2024-08-15 06:40] LABS: Hematocrit (blood only) 36.6 % (37.0-47.0); Hemoglobin 12.2 g/dl (12.0-16.0); Mean Corpuscular Hgb Conc 33.3 g/dL (32.0-36.0); Mean Corpuscular Volume 86.9 fL (80.0-100.0); Mean Platelet Volume 11.4 fL (9.4-12.4); Platelet Count 129 K/uL (130-400); RDW Coefficient of Variation 14.6 % (11.5-14.5); RDW Standard Deviation 46.5 fL (36.4-46.3); Red Blood Count 4.21 M/uL (4.20-5.40); White Blood Count 6.53 K/ul (4.8-10.8)
[2024-08-15 07:09] LABS: Albumin Level 2.7 gm/dl (3.4-5.0); BUN Creatinine Ratio 36.2 (10-20); Bilirubin,Total 0.7 mg/dl (0.2-1.0); Creatinine Clr Calc Pharmacy 120.6 ml/min; Globulin 2.6 gm/dl (2.5-4.0); Potassium 3.8 mmol/L (3.5-5.1); Total Protein 5.3 gm/dl (6.0-8.3)
[2024-08-15 07:26] LABS: ANTI-Xa, UFH(UnfractionatedHep 0.36 IU/ml (0.3-0.7)
[2024-08-15 08:35] LABS: ANA Pattern Nuclear, Homogeneous; ANA Titer 1:40 titer
[2024-08-15] MEDS: APIXABAN 5 MG TABLET PO SCH (08:55)
[2024-08-15] MEDS: traMADol HCL 50 MG TABLET PO STA (09:35)
--- NOTE | 2024-08-15 10:45 | Gastroenterology Progress Note ---
Date of Service August 15, 2024 Assessment & Plan (1) Transaminitis: Plan LFTs continue to trend downwards in the setting of steroids and holding methotrexate. JENNA came back positive, but of uncertain clinical significance. Aldolase was elevated. Will discuss further with Dr. Nava. Admission and Anticipated Discharge Date Admission Date: August 13, 2024 Supervising Physician Co-Signing Physician Notes Liver tests improving. JENNA at 1 and 40 is not significant. May just reflect her known autoimmune disease i.e. rheumatoid arthritis. Her JENNA and anti-smooth muscle antibodies are normal. Significantly elevated aldolase. Steroids follow-up as an outpatient with rheumatology. I do not believe this patient has autoimmune hepatitis. However with this bout of transaminitis fatty liver suggest an alternative the methotrexate for her rheumatoid arthritis. If liver enzymes remain elevated or increase again suggest she follow-up with hepatology at discharge. GI signs off reconsult as needed Subjective Patient feeling better from a GI standpoint per son. no current GI concerns. Patient currently sleeping. 08/15/24 INR 1. T bili 0.7, AST 18, ALT 98, ALK phos 73. JENNA + 1:40, ASMA/AMA negative. aldolase 42.9. Physical Exam Constitutional: WD/WN, vitals as above Respiratory: normal respiratory effort, lungs clear to auscultation Cardiovascular: Rate/Rhythm: regular rate and regular rhythm Gastrointestinal (Abdomen): nontender, soft. normal bowel sounds. Psychiatric: patient resting. Results & Data Results & Data Vital Signs (Past 12 Hours) Vital Signs Temp Pulse Pulse Resp BP Pulse Ox O2 Del Method 08/15/24 07:37 Nasal Cannula 08/15/24 07:10 99.9 F H 83 18 152/84 H 92 Room Air 08/15/24 03:06 98.6 F 73 18 137/83 93 Oxymask 08/14/24 23:33 Oxymask 08/14/24 23:10 98.4 F 64 20 129/83 97 Oxymask 08/14/24 22:51 63 O2 Flow Rate 08/15/24 07:37 3 08/15/24 07:10 08/15/24 03:06 2 08/14/24 23:33 3 08/14/24 23:10 2 08/14/24 22:51 Coding Level of Care Code 49477 SUB INP/OBS CARE 07/12MIN Diagnoses Transaminitis R74.01
--- NOTE | 2024-08-15 11:27 | XRay Report ---
XR chest 1V portable CLINICAL HISTORY: SOB COMPARISON STUDY: 08/11/2024 FINDINGS: Stable cardiomegaly without pulmonary vascular congestion. Stable opacity at the left base with partial obscuration of left hemidiaphragm. No pneumothorax. IMPRESSION: Stable exam. ACT 112: Negative or not required by law. Electronically signed by: Law Carrera M.D. 08/15/2024 11:26 AM
--- NOTE | 2024-08-15 12:01 | Hospitalist Progress Note ---
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 Pt most recent hospitalization 08/06/2024-08/08/2024 for vertigo + transaminitis. Biofire negative; CXR no pneumonia, but cardiomegaly; chest CTA negative for PE, persistent transaminitis, negative portal doppler Afib/ A flutter Cardiology on board will start Heparin by weight today Trnasition to PO Eliquis today Rate control with Metoprolol 25mg BID outpatient 30 day event monitor Hypoxia and low grade fever Not on oxygen at home will obtain chest x ray Blood culture on 08/06 was positive for staph, but it was deemed a possible contaminant Repeat cultures negative so far will obtain CRP may need antibiotics, but will hold off for now #Chest pain, reproducible and pleuritic, right sternal bordercompletely resolved PE study negative - EKG w/o evidence of ischemia; Echocardiogram with normal size function no regional wall motion abnormalities #Transaminitis improving previous Anaplasma and Babesia are negative Lyme disease negative JENNA positive, clinical significance uncertain, pending antimitochondrial anti- smooth muscle antibody and aldolase Most recent CTAP w/ diffuse hepatic steatosis, no hepatosplenomegaly. Denying EtOH use. - BioFire negative; no recent illness since d/c - Zofran prn N/V; clear liquid diet then advance as tolerated - GI appreciated Deconditioning Patient is a 2 person assist PT eval #Blood cultures, incidentally to blood culture from last admission are positive for organisms that both seemingly could be contaminant repeat blood cultures undertaken, minor elevation in CRP echo without valvular vegetations repeat blood cultures negative to date #thrombocytopenia, isolated thrombocytopenia with normal white count and red count likely in the face of liver disease improving #Vertigo- Meclizine, lorazepam prn #RA- Methotrexate currently on hold; patient was to follow up with ferryboat pilot but has not between last two admissions # constipation will use miralax #Possible adrenal insufficiency. VTE Prophylaxis: SCDs; add chemical prophylaxis if prolonged stay cautious with low platelets PT/OT eval pending Admission and Anticipated Discharge Date Admission Date: August 13, 2024 Subjective patient seen and examined, son by the bedside Review of Systems Review of Systems: All systems reviewed are negative, apart from the ones contained in the history. Physical Exam Physical Exam: The patient is awake, alert and oriented 3, well developed and well nourished, normocephalic and atraumatic, lying in bed and in no acute distress. HEENT--PERRL, EOMI, mucous membranes and oropharynx mildly dry Neck--supple. No JVD. No bruits. Thyroid normal, trachea midline, no adenopathy. Heart--normal S1 and S2. No murmurs, rubs or gallops. Lungs--clear bilaterally, no respiratory distress, no accessory muscle use. Abdomen--normal bowel sounds and soft. Extremities--no cyanosis or clubbing. No edema. Dermatologic--normal skin turgor, normal color, no abnormal lymph nodes, no rash. Neurologic--cranial nerves II through XII grossly intact. Rheumatologic--normal range of motion. Psychiatric--normal affect. Results & Data Results & Data Vital Signs (Past 12 Hours) Vital Signs Temp Pulse Pulse Pulse Pulse Pulse Pulse 08/15/24 10:49 83 87 84 75 76 08/15/24 07:37 08/15/24 07:10 99.9 F H 83 08/15/24 03:06 98.6 F 73 Resp Resp Resp Resp Resp Resp BP 08/15/24 10:49 18 18 16 16 16 08/15/24 07:37 08/15/24 07:10 18 152/84 H 08/15/24 03:06 18 137/83 Pulse Ox Pulse Ox Pulse Ox Pulse Ox Pulse Ox Pulse Ox O2 Del Method 08/15/24 10:49 88 L 94 91 93 86 L 08/15/24 07:37 Nasal Cannula 08/15/24 07:10 92 Room Air 08/15/24 03:06 93 Oxymask O2 Flow Rate O2 Flow Rate O2 Flow Rate O2 Flow Rate O2 Flow Rate 08/15/24 10:49 2 3 2 2 08/15/24 07:37 3 08/15/24 07:10 08/15/24 03:06 2 PG Care Time/CCT Total # of Minutes Spent Total Time Spent with Patient: Total time spent is greater than 50% in coordination of care (as documented) at patient's floor/unit and/or counseling patient: Coding Level of Care Code 33090 SUB INP/OBS CARE 2/35MIN Diagnoses Chest pain R07.9 Transaminitis R74.01 Hypoxia R09.02 Low grade fever R50.9 Time Spent (min) 35
--- NOTE | 2024-08-15 22:16 | Electrocardiogram Report ---
Test Reason : Blood Pressure : */* mmHG Vent. Rate : 165 BPM Atrial Rate : 86 BPM P-R Int : * ms QRS Dur : 78 ms QT Int : 288 ms P-R-T Axes : * 13 136 degrees QTcB Int : 477 ms Atrial flutter with rapid ventricular response Abnormal ECG When compared with ECG of 11-Aug-2024 03:47, Atrial flutter has replaced Sinus rhythm Vent. rate has increased by 73 bpm Confirmed by Alex Arguello ([id number]) on 08/15/2024 10:15:52 PM Referred By: REFERRED SELF Confirmed By: Alex Arguello
--- NOTE | 2024-08-15 22:18 | Electrocardiogram Report ---
Test Reason : Blood Pressure : */* mmHG Vent. Rate : 72 BPM Atrial Rate : 72 BPM P-R Int : 148 ms QRS Dur : 84 ms QT Int : 376 ms P-R-T Axes : 46 1 -46 degrees QTcB Int : 411 ms Normal sinus rhythm Nonspecific ST and T wave abnormality Abnormal ECG When compared with ECG of 13-Aug-2024 07:28, Sinus rhythm has replaced Atrial flutter Vent. rate has decreased by 93 bpm Confirmed by Alex Arguello ([id number]) on 08/15/2024 10:17:57 PM Referred By: REFERRED SELF Confirmed By: Alex Arguello
[2024-08-15] MEDS: FLUTICASONE PROPIONATE NA SPR 16 GM BTL SCH (23:24)
[2024-08-16 08:00] LABS: Hematocrit (blood only) 38.1 % (37.0-47.0); Hemoglobin 12.6 g/dl (12.0-16.0); Mean Corpuscular Hemoglobin 28.7 pg (25.0-34.0); Mean Corpuscular Hgb Conc 33.1 g/dL (32.0-36.0); Mean Corpuscular Volume 86.8 fL (80.0-100.0); Mean Platelet Volume 11.1 fL (9.4-12.4); Platelet Count 158 K/uL (130-400); RDW Coefficient of Variation 14.6 % (11.5-14.5); RDW Standard Deviation 46.8 fL (36.4-46.3); Red Blood Count 4.39 M/uL (4.20-5.40); White Blood Count 5.83 K/ul (4.8-10.8)
[2024-08-16 08:10] LABS: Albumin Level 2.7 gm/dl (3.4-5.0); BUN Creatinine Ratio 24.6 (10-20); Bilirubin,Total 0.8 mg/dl (0.2-1.0); C Reactive Protein 2.49 mg/dl (0-0.5); Calcium 8.1 mg/dl (8.6-10.3); Creatinine Clr Calc Pharmacy 99.4 ml/min; Globulin 2.6 gm/dl (2.5-4.0); Potassium 3.8 mmol/L (3.5-5.1); Total Protein 5.3 gm/dl (6.0-8.3)
[2024-08-16] MEDS: guaiFENesin 600 MG TABCR PO SCH (08:27)
--- NOTE | 2024-08-16 11:20 | Hospitalist Progress Note ---
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 Pt most recent hospitalization 08/06/2024-08/08/2024 for vertigo + transaminitis. Biofire negative; CXR no pneumonia, but cardiomegaly; chest CTA negative for PE, persistent transaminitis, negative portal doppler Afib/ A flutter Cardiology on board will start Heparin by weight today Trnasition to PO Eliquis today Rate control with Metoprolol 25mg BID outpatient 30 day event monitor Hypoxia and low grade fever Not on oxygen at home , etiology is likely from atelectasis as seen oc CT chest and x ray. No evidence of pulm edema or PNA Blood culture on 08/06 was positive for staph, but it was deemed a possible contaminant Repeat cultures negative so far CRP only mildly elevated will hold off on antibiotics encourage incentive spiromeytry #Chest pain, reproducible and pleuritic, right sternal bordercompletely resolved PE study negative - EKG w/o evidence of ischemia; Echocardiogram with normal size function no regional wall motion abnormalities #Transaminitis improving previous Anaplasma and Babesia are negative Lyme disease negative JENNA positive, clinical significance uncertain, pending antimitochondrial anti- smooth muscle antibody and aldolase Most recent CTAP w/ diffuse hepatic steatosis, no hepatosplenomegaly. Denying EtOH use. - BioFire negative; no recent illness since d/c - Zofran prn N/V; clear liquid diet then advance as tolerated - GI appreciated Deconditioning Patient is a 2 person assist PT eval pending #Blood cultures, incidentally to blood culture from last admission are positive for organisms that both seemingly could be contaminant repeat blood cultures undertaken, minor elevation in CRP echo without valvular vegetations repeat blood cultures negative to date #thrombocytopenia, isolated thrombocytopenia with normal white count and red count likely in the face of liver disease improving #Vertigo- Meclizine, lorazepam prn #RA- Methotrexate currently on hold; patient was to follow up with long chain beamer but has not between last two admissions # constipation will use miralax #Possible adrenal insufficiency. VTE Prophylaxis: SCDs; add chemical prophylaxis if prolonged stay cautious with low platelets PT/OT eval pending Admission and Anticipated Discharge Date Admission Date: August 13, 2024 Subjective patient seen and examined, feels weak Review of Systems Review of Systems: All systems reviewed are negative, apart from the ones contained in the history. Physical Exam Physical Exam: The patient is awake, alert and oriented 3, well developed and well nourished, normocephalic and atraumatic, lying in bed and in no acute distress. HEENT--PERRL, EOMI, mucous membranes and oropharynx mildly dry Neck--supple. No JVD. No bruits. Thyroid normal, trachea midline, no adenopathy. Heart--normal S1 and S2. No murmurs, rubs or gallops. Lungs--clear bilaterally, no respiratory distress, no accessory muscle use. Abdomen--normal bowel sounds and soft. Extremities--no cyanosis or clubbing. No edema. Dermatologic--normal skin turgor, normal color, no abnormal lymph nodes, no rash. Neurologic--cranial nerves II through XII grossly intact. Rheumatologic--normal range of motion. Psychiatric--normal affect. Results & Data Results & Data Vital Signs (Past 12 Hours) Vital Signs Temp Pulse Pulse Resp BP Pulse Ox O2 Del Method 08/16/24 07:53 72 08/16/24 07:19 98.2 F 81 20 126/81 93 Oxymask 08/16/24 04:41 Oxymask 08/16/24 02:45 99.5 F 78 16 138/81 97 Oxymask 08/15/24 23:31 76 O2 Flow Rate 08/16/24 07:53 08/16/24 07:19 5 08/16/24 04:41 5 08/16/24 02:45 5 08/15/24 23:31 PG Care Time/CCT Total # of Minutes Spent Total Time Spent with Patient: Total time spent is greater than 50% in coordination of care (as documented) at patient's floor/unit and/or counseling patient: Coding Level of Care Code 16231 SUB INP/OBS CARE 2/35MIN Diagnoses Chest pain R07.9 Transaminitis R74.01 Hypoxia R09.02 Low grade fever R50.9 Time Spent (min) 35
[2024-08-16] MEDS: traMADol HCL 50 MG TABLET PO PRN (15:11)
[2024-08-17 08:42] LABS: Hematocrit (blood only) 37.9 % (37.0-47.0); Hemoglobin 12.3 g/dl (12.0-16.0); Mean Corpuscular Hemoglobin 28.6 pg (25.0-34.0); Mean Corpuscular Hgb Conc 32.5 g/dL (32.0-36.0); Mean Corpuscular Volume 88.1 fL (80.0-100.0); Mean Platelet Volume 10.7 fL (9.4-12.4); Platelet Count 189 K/uL (130-400); RDW Coefficient of Variation 14.7 % (11.5-14.5); RDW Standard Deviation 47.1 fL (36.4-46.3); White Blood Count 7.86 K/ul (4.8-10.8)
[2024-08-17 08:57] LABS: Albumin Level 2.8 gm/dl (3.4-5.0); BUN Creatinine Ratio 23.4 (10-20); Bilirubin,Total 0.8 mg/dl (0.2-1.0); Calcium 8.4 mg/dl (8.6-10.3); Creatinine Clr Calc Pharmacy 88.5 ml/min; Globulin 2.8 gm/dl (2.5-4.0); Potassium 4.3 mmol/L (3.5-5.1); Total Protein 5.6 gm/dl (6.0-8.3)
--- NOTE | 2024-08-17 10:19 | Hospitalist Progress Note ---
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 Pt most recent hospitalization 08/06/2024-08/08/2024 for vertigo + transaminitis. Biofire negative; CXR no pneumonia, but cardiomegaly; chest CTA negative for PE, persistent transaminitis, negative portal doppler Afib/ A flutter Cardiology on board Now on PO Eliquis 5mg BID Rate control with Metoprolol 25mg BID outpatient 30 day event monitor Hypoxia and low grade fever Improving Not on oxygen at home , etiology is likely from atelectasis as seen on CT chest and x ray. No evidence of pulm edema or PNA Blood culture on 08/06 was positive for staph, but it was deemed a possible contaminant Repeat cultures negative so far CRP only mildly elevated will hold off on antibiotics encourage incentive spirometry #Chest pain, reproducible and pleuritic, right sternal bordercompletely resolved PE study negative - EKG w/o evidence of ischemia; Echocardiogram with normal size function no regional wall motion abnormalities #Transaminitis improving previous Anaplasma and Babesia are negative Lyme disease negative JENNA positive, clinical significance uncertain, pending antimitochondrial anti- smooth muscle antibody and aldolase Most recent CTAP w/ diffuse hepatic steatosis, no hepatosplenomegaly. Denying EtOH use. - BioFire negative; no recent illness since d/c - Zofran prn N/V; clear liquid diet then advance as tolerated - GI appreciated Deconditioning Much improved today, ambulating the room, no SOB on exertion PT eval pending #Blood cultures, incidentally to blood culture from last admission are positive for organisms that both seemingly could be contaminant repeat blood cultures undertaken, minor elevation in CRP echo without valvular vegetations repeat blood cultures negative to date #thrombocytopenia, isolated thrombocytopenia with normal white count and red count likely in the face of liver disease improving #Vertigo- Meclizine, lorazepam prn #RA- Methotrexate currently on hold; 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 VTE Prophylaxis: SCDs; add chemical prophylaxis if prolonged stay cautious with low platelets PT/OT eval pending, may benefit from SNF Admission and Anticipated Discharge Date Admission Date: August 13, 2024 Subjective patient seen and examined, feels weak. but a lot better today Review of Systems Review of Systems: All systems reviewed are negative, apart from the ones contained in the history. Physical Exam Physical Exam: The patient is awake, alert and oriented 3, well developed and well nourished, normocephalic and atraumatic, lying in bed and in no acute distress. HEENT--PERRL, EOMI, mucous membranes and oropharynx mildly dry Neck--supple. No JVD. No bruits. Thyroid normal, trachea midline, no adenopathy. Heart--normal S1 and S2. No murmurs, rubs or gallops. Lungs--clear bilaterally, no respiratory distress, no accessory muscle use. Abdomen--normal bowel sounds and soft. Extremities--no cyanosis or clubbing. No edema. Dermatologic--normal skin turgor, normal color, no abnormal lymph nodes, no rash. Neurologic--cranial nerves II through XII grossly intact. Rheumatologic--normal range of motion. Psychiatric--normal affect. Results & Data Results & Data Vital Signs (Past 12 Hours) Vital Signs Temp Pulse Pulse Resp BP Pulse Ox O2 Del Method 08/17/24 09:14 Oxymask 08/17/24 07:49 98.4 F 59 L 22 112/73 94 Oxymask 08/17/24 07:04 71 08/17/24 03:13 98.4 F 78 16 114/69 98 Oxymask 08/16/24 23:34 98.8 F 71 17 142/77 H 94 Oxymask 08/16/24 23:09 68 O2 Flow Rate 08/17/24 09:14 3 08/17/24 07:49 3 08/17/24 07:04 08/17/24 03:13 2.0 08/16/24 23:34 3 08/16/24 23:09 PG Care Time/CCT Total # of Minutes Spent Total Time Spent with Patient: Total time spent is greater than 50% in coordination of care (as documented) at patient's floor/unit and/or counseling patient: Coding Level of Care Code 10018 SUB INP/OBS CARE 2/35MIN Diagnoses Chest pain R07.9 Transaminitis R74.01 Hypoxia R09.02 Low grade fever R50.9 Time Spent (min) 35
[2024-08-18 07:42] LABS: Hematocrit (blood only) 37.6 % (37.0-47.0); Hemoglobin 12.1 g/dl (12.0-16.0); Mean Corpuscular Hemoglobin 28.5 pg (25.0-34.0); Mean Corpuscular Hgb Conc 32.2 g/dL (32.0-36.0); Mean Corpuscular Volume 88.5 fL (80.0-100.0); Mean Platelet Volume 10.6 fL (9.4-12.4); Platelet Count 205 K/uL (130-400); RDW Standard Deviation 47.6 fL (36.4-46.3); Red Blood Count 4.25 M/uL (4.20-5.40); White Blood Count 9.23 K/ul (4.8-10.8)
[2024-08-18 07:57] LABS: BUN Creatinine Ratio 21.7 (10-20); Calcium 8.8 mg/dl (8.6-10.3); Creatinine Clr Calc Pharmacy 82.1 ml/min; Potassium 3.8 mmol/L (3.5-5.1)
--- NOTE | 2024-08-18 08:02 | Hospitalist Progress Note ---
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 Pt most recent hospitalization 08/06/2024-08/08/2024 for vertigo + transaminitis. Biofire negative; CXR no pneumonia, but cardiomegaly; chest CTA negative for PE, persistent transaminitis, negative portal doppler. #Afib/ A flutter - Cardiology recs appreciated (currently signed off) - rate controlled with metoprolol BID, AC with Eliquis - outpatient 30 day event monitor #Hypoxia and low grade fever - Improving - Not on oxygen at home , etiology is likely from atelectasis as seen on CT chest and x ray. No evidence of pulm edema or PNA or fibrosis - Blood culture on 08/06 was positive for staph, but it was deemed a possible c ontaminant - Repeat cultures negative so far - CRP only mildly elevated - cont to hold off on antibiotics - encourage incentive spirometry - currently requiring 2L at rest and 3L with ambulation #Chest pain, reproducible and pleuritic, right sternal bordercompletely resolved - PE study negative - EKG w/o evidence of ischemia - Echocardiogram with normal size function no regional wall motion abnormalities #Transaminitis - continuing to improve - previous Anaplasma and Babesia are negative Lyme disease negative - JENNA positive (not significant for GI pathology), aldolase: 42.9, antimitocho ndrial ab neg, anti-smooth muscle ab neg - Most recent CTAP w/ diffuse hepatic steatosis, no hepatosplenomegaly. Denying EtOH use. - BioFire negative; no recent illness since d/c - Zofran prn N/V; clear liquid diet then advance as tolerated - GI appreciated, doubt autoimmune hepatitis, if liver enzymes remain elevated or increase, then need outpatient follow up with hepatology (GI currently signed off) #Deconditioning - Much improved today, ambulating the room, no SOB on exertion - PT / OT re-eval pending #Positive Blood cultures - previous admission BCx noted to have MSSA, staph pasteuri, staph epi, Finegoldia magna - ECHO without valvular vegetations - BCx from this admission NGTD #Thrombocytopenia: resolved - isolated thrombocytopenia with normal white count and red count likely in the face of liver disease improving #Vertigo- Meclizine, lorazepam prn #RA- Methotrexate currently on hold; patient was to follow up with health education assistant but has not between last two admissions #Constipation - prn senna S bid #Possible adrenal insufficiency - remains hemodynamically stable #VTE Prophylaxis: on Eliquis #Dispo: PT/OT eval pending, may benefit from SNF 08/18: updated pt's [id number] Keo ([phone]) Admission and Anticipated Discharge Date Admission Date: August 13, 2024 Subjective No acute events overnight Currently no new complaints. Review of Systems Review of Systems: Comprehensive ROS neg Physical Exam Physical Exam: Gen: no acute distress, lying in bed comfortable HEENT: NC/AT, anicteric, MMM Lungs: CTAB Results & Data Results & Data Vital Signs (Past 12 Hours) Vital Signs Temp Pulse Pulse Resp BP BP Pulse Ox 08/18/24 07:49 08/18/24 07:21 37.2 C 70 18 121/74 94 08/18/24 03:36 37.0 C 69 18 131/82 97 08/17/24 23:13 37.7 C H 67 18 106/67 95 08/17/24 23:00 63 08/17/24 20:08 37.4 C 74 18 145/82 H 95 08/17/24 20:00 O2 Del Method O2 Flow Rate 08/18/24 07:49 Nasal Cannula 2 08/18/24 07:21 Nasal Cannula 2 08/18/24 03:36 Nasal Cannula 2 08/17/24 23:13 Nasal Cannula 3.0 08/17/24 23:00 08/17/24 20:08 Nasal Cannula 2.0 08/17/24 20:00 Nasal Cannula PG Care Time/CCT Total # of Minutes Spent Total Time Spent with Patient: Total time spent is greater than 50% in coordination of care (as documented) at patient's floor/unit and/or counseling patient: Coding Level of Care Code 87884 SUB INP/OBS CARE 2/35MIN Diagnoses Chest pain R07.9 Transaminitis R74.01 Hypoxia R09.02 Low grade fever R50.9
[2024-08-18] MEDS ORDERED: DOCUSATE SODIUM/SENNA 50/8.6MG TAB PO PRN (13:36)
[2024-08-19 07:58] LABS: Hematocrit (blood only) 36.6 % (37.0-47.0); Hemoglobin 12.2 g/dl (12.0-16.0); Mean Corpuscular Hgb Conc 33.3 g/dL (32.0-36.0); Mean Corpuscular Volume 86.9 fL (80.0-100.0); Mean Platelet Volume 10.8 fL (9.4-12.4); Platelet Count 256 K/uL (130-400); Red Blood Count 4.21 M/uL (4.20-5.40); White Blood Count 9.94 K/ul (4.8-10.8)
[2024-08-19 08:07] LABS: Albumin Globulin Ratio 1.1 (0.9-2); Bilirubin,Total 0.7 mg/dl (0.2-1.0); Calcium 8.9 mg/dl (8.6-10.3); Creatinine Clr Calc Pharmacy 92.7 ml/min; Globulin 2.8 gm/dl (2.5-4.0); Phosphorus 3.1 mg/dl (2.5-4.9); Potassium 3.5 mmol/L (3.5-5.1); Total Protein 5.8 gm/dl (6.0-8.3)
[2024-08-19 09:06] LABS: ALC (manual) 4.67 K/uL (1.2-3.4); ANC (manual) 3.98 K/uL (1.4-6.5); Basophils % (manual) 2 %; Eosinophils % (manual) 3 %; Lymphocytes # (manual) 2.19 K/uL (1.2-3.4); Lymphocytes % (manual) 22 %; Monocytes % (manual) 8 %; Neutrophils # (manual) 3.98 K/uL (1.40-6.50); Neutrophils % (manual) 40 %; RBC Morphology Unremarkable; Reactive Lymphocytes # (manual) 2.49 K/uL; Reactive Lymphocytes % (manual) 25 %
[2024-08-19 11:43] VITALS: RESP 16
[2024-08-19 16:15] VITALS: BP 107/65; PULSE 66; TEMP 97.9; O2SAT 92
--- NOTE | 2024-08-19 18:00 | Discharge Summary ---
Discharge Summary Date of Service August 19, 2024 Principal Dx & Hospital Course #1 = Principal Diagnosis (1) Chest pain: (2) Transaminitis: (3) Hypoxia: (4) Low grade fever: Plan 69 years old female with PMH of FULL CODE @ home, obesity with BMI 34.1 (height 160.02 cm; weight 87.3 kg), hyperlipidemia, HTN, and rheumatoid arthritis on methotrexate 15mg SQ weekly and prednisone 20mg PO daily, osteopenia, and recent hospitalization (08/06/2024 - 08/08/2024) for vertigo and transaminitis, who presented to [facility] ER on 08/11/2024 with complaints of chest pain starting in the morning hours of 08/11/2024. Patient was subsequently admitted to the inpatient hospitalist service @ [facility] on 08/11/2024 with atypical chest pain, s/p OVI. The following medical issues were also addressed while the patient remained in [facility] from 08/11/2024 - 08/19/2024: #Afib/ A flutter - Cardiology recs appreciated (currently signed off) - rate controlled with metoprolol BID, AC with Eliquis - outpatient 30 day event monitor #Hypoxia and low grade fever - RESOLVED - Not on oxygen at home , etiology is likely from atelectasis as seen on CT chest and x ray. No evidence of pulm edema or PNA or fibrosis - Blood culture on 08/06 was positive for staph, but it was deemed a possible contaminant - Repeat cultures negative so far - CRP only mildly elevated - cont to hold off on antibiotics - encourage incentive spirometry - currently requiring 2L at rest and 3L with ambulation #Chest pain, reproducible and pleuritic, right sternal bordercompletely RESOLVED - PE study negative - EKG w/o evidence of ischemia - Echocardiogram with normal size function no regional wall motion abnormalities #Transaminitis - RESOLVED - previous Anaplasma and Babesia are negative Lyme disease negative - JENNA positive (not significant for GI pathology), aldolase: 42.9, antimitochondrial ab neg, anti-smooth muscle ab neg - Most recent CTAP w/ diffuse hepatic steatosis, no hepatosplenomegaly. Denying EtOH use. - BioFire negative; no recent illness since d/c - Zofran prn N/V; clear liquid diet then advance as tolerated - GI appreciated, doubt autoimmune hepatitis, if liver enzymes remain elevated or increase, then need outpatient follow up with hepatology (GI currently signed off) #Deconditioning - RESOLVED, ambulating the room, no SOB on exertion - PT / OT re-evals recommend D/C patient home on 08/19/2024 #PRIOR admission Blood cultures + - Prior admission blood cultures (08/06/2024, 9:20pm): MSSA, Staphylococcus pasteuri, Staphylococcus epidermidis, Finegoldia magna - TTE (08/11/2024, 2:26pm) without valvular vegetations - Blood cultures (08/11/2024, 4:48pm) x 2, negative. #Thrombocytopenia with admission platelet count 33 (08/11/2024, 3:56am) RESOLVED with discharge platelet count 256 (08/19/2024, 7:03am). - isolated thrombocytopenia with normal white count and red count likely in the face of liver disease improving #Vertigo- Asymptomatic on meclizine 25mg PO tid prn vertigo, lorazepam 0.5mg PO bid prn vertigo #RA- Methotrexate 15mg PO weekly on hold in [facility]; patient received dexamethasone 4mg PO daily while in [facility]; patient will resume her home-scheduled methotrexate 15mg PO weekly and prednisone 20mg PO daily on hospital discharge home on 08/19/2024. Patient's [id number] ([place], [place]) also received an electronic prescription for famotidine 40mg PO daily, #30 tablets, no refills (to prophylax against steroid-associated gastritis, ulcer formation, and/or GI bleeding), on 08/19/2024, prior to patient's discharge home on 08/19/2024. #Constipation - prn senna S bid #Possible adrenal insufficiency - remains hemodynamically stable #VTE Prophylaxis: on Eliquis #Dispo: PT/OT evals both recommended acute rehab, which the patient emphatically refused, stating, "I am going back home, my home, not some rehab home, today, 08/19/2024." 08/19: updated pt's [id number] Keo ([phone]), who concurs with the patient's wishes to be discharged back to patient's home today, 08/19/2024. Discharge time, 35 minutes. Of this time period, 18 minutes were spent in coordinating patient's discharge. Admission HPI Per Admitting Provider 69-year-old female PMHx RA on methotrexate, osteopenia, HTN, HLD presenting for chest pain starting the morning [employer]. States that the pain is across her entire chest, described as a constant pain, worse with movement but also significant with laying down. 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 No known sick contacts. Patient did have an episode of vomiting while she was in the CT scanner but this was after receiving fentanyl pain medication as well as taking a sip of water. States that she is not having overt abdominal pain at baseline, and has not had any N/V/D/C otherwise. Still experiencing vertigo, not much relief with meclizine. Overall patient denying palpitations, numbness/tingling, LUTS, headache, vision changes, syncopal events, lightheadedness, or fever/chills. Pt most recent hospitalization 08/06/2024-08/08/2024 for vertigo + transaminitis. ED evaluation reveals no leukocytosis, normal H/H, CMP CO2 35, ratio 29.9, AST 423, ALT 353, alk phos 111, troponin 29.6, pending repeat, BNP 110, albumin 3.3; D-dimer 8250; Biofire negative; CXR prominent hilar shadows bronchovascular markings noted congestive changes, obscured L costophrenic recess secondary to prominent pericardial fat, cardiomegaly; chest CTA negative for PE, pending dopplers. Provided with NSS 1L IV, pantoprazole 40mg, ondansetron 4mg, and fentanyl 50 mcg in ED. Please see Dr. Estrada's attestation for adjustments/additions to treatment plan. Discharge Exam Constitutional General: Comfortable, coherent, cooperative. Wide awake and alert. Not confused, lethargic, or obtunded. Patient speaks in complete, fluent, and articulate sentences without pause, interruption, cough, or wheeze. HEENT: Normocephalic, atraumatic. Pupils equally round and reactive to light. Extra-ocular muscles intact. No nystagmus, gaze paresis, anisocoria, miosis, mydriasis, hyphema, scleral injection, conjunctivitis, or pterygium. No rhinorrhea or otorrhea. No pharyngeal discharge or erythema. Neck: Supple, no stridor, bruit, goiter, hepatojugular reflux. Jugular venous pressure is estimated to be 8 cm above the sternal angle of Toño, which is estimated to be 5 cm above the level of the right atrium. Lymph: No anterior/posterior cervical, supraclavicular/infraclavicular, axillary, epitrochlear, or inguinal adenopathy. Chest: Symmetric rise and fall with respirations. Lungs: Clear to auscultation and percussion. No audible expiratory wheeze, egophony, pectoriloquy, increase in tactile fremitus, or flatness/dullness to percussion at the bases. Heart: RRR, S1 and S2 noted. No S3 or S4 summation gallop noted. No tripartite friction rub. Grade II/ early systolic murmur @ LLSB without radiation to the carotids, axilla, or back, and which remains invariant in regards to the respiratory cycle. Abdomen: Soft, non-tender, non-distended. No rebound, guarding, Linder's sign, or organomegaly. Bowel sounds sounds auscultated in all 4 quadrants. Extremities: No clubbing, cyanosis, or edema. 2+ pedal pulses bilaterally. Skin: No decubitus ulcer, exanthem, or enanthem. Neurology: Alert and oriented to person, place, time, and situation. DTR+ and symmetric. 5/5 motor strength in all 4 extremities, both proximally and distally. No pronator drift. No facial droop. Urology: No rivero catheter. No urethral discharge. Psychiatry: No suicidal ideation. No homicidal ideation. Discharge Plan Discharge Items Patient Disposition: Home - Self-Care Reason For Visit: CHEST PAIN, TRANSAMINITIS, DDIMER Discharge Diagnosis: Chest pain, s/p OVI, s/p RO PE, s/p RO PNA. Condition on Discharge: Fair Activity: Resume your previous activity Non-emergency contact: Primary Care Provider Call non-emergency contact if: you have any medication questions Follow-up/Referrals: Lora Lawton CRNP [Primary Care Provider] - 08/29/24 10:30 am Diet: Heart Healthy, Low Fat and Low Sodium (2gm) Addtl Attending Provider Instructions: See your PCP JADON Cooper, within 7 days of hospital discharge. Pending Studies at Discharge: No Stand-Alone Forms: My [facility], Smoking Cessation Medications and DC Order Prescriptions: New metoprolol tartrate 25 mg Tablet 25 mg PO BID Qty: 60 0RF Eliquis 5 mg Tablet 5 mg PO BID Qty: 60 0RF famotidine 40 mg tablet 40 mg PO DAILY Qty: 30 0RF Continued lorazepam 0.5 mg tablet 0.5 mg PO BID PRN (Reason: vertigo) Qty: 10 0RF (DME) Knee immobilizer See Rx Instructions .Route .MEDSUPPLY Qty: 1 0RF Rx Instructions: As directed meclizine 25 mg tablet See Rx Instructions PO TID PRN (Reason: dizziness) Qty: 60 0RF Rx Instructions: 1 or 2 orally three times a day PRN; potassium 99 mg Tablet 99 mg PO HS Rx Instructions: Unable to verify OTC meds at this date/time. methotrexate sodium 2.5 mg tablet 15 mg PO WK Hold Instructions: Resume on 08/22/24. Rx Instructions: On hold until August 22 folic acid 1 mg tablet 1 mg PO DAILY prednisone 20 mg tablet 20 mg PO DAILY Qty: 13 0RF Rx Instructions: Take 3 tabs po daily x 2 days, 2 tabs po daily x 2 days, 1 tab po daily x 2 days the 1/2 tab po daily x 2 days then stop. Discharge Orders: Discharge Order (Routine); Ordered 08/19/24 Ordered By: Drew Sadler Admission Data Admit Date/Time: 08/13/24 07:49 Attending Provider: Drew Sadler Admit Provider: Sal Estrada Primary Care Provider: Lora Lawton Other Providers: Norberto Márquez; Heath Peters; Milagros Antunez; Roula Arguelles; Elisa Raines; Shereen Solorzano; Jose Enrique Cummings; Filemon Hernandez; Maribel Holbrook; Sosa Perez; Margaret Murry; Rosalee Hargrove; Sunitha Garcia; Jeannette Almonte; Silvia Ledezma; Josiah Kulkarni; Nery Harris; Maynor Miller Jr; Jori Muñoz; Shane Pak; Yfn Ewing; Ridge Gould; Elly Guzman; Mihir Polanco I; Sharita Lopez; Alvarez Nava; Manish Mariano; Sal Estrada; Alex Arguello Hospital Stay Data Consultations 08/11/24 06:28 Consult Gastroenterology Routine 08/11/24 06:50 ED Decision to Admit Stat 08/13/24 10:24 Consult Cardiology Routine Diagnostic Imagining Performed 08/11/24 05:02 CT angio chest PE protocol Stat 08/11/24 08:39 US duplex portal hepatic veins Routine 08/11/24 16:14 MR MRCP Routine 08/14/24 15:40 CT head/brain wo con Routine Pending Results Patient Have Any Pending Studies at Discharge: No Discharge Instructions Given to Patient (Per Discharging Provider) See your PCP JADON Coopre, within 7 days of hospital discharge. Total Time Total Time Spent Total Time Spent (In Minutes): 35 minutes Coding Level of Care Code 63551 INP/OBS DISCH >30 MIN Diagnoses Chest pain R07.9 Transaminitis R74.01 Hypoxia R09.02 Low grade fever R50.9
== END 2024-08-19 18:02 | disposition home or self-care (01) | DRG 313 ==
LOC: ED 03:35 → EDINP 03:35 → SUATTDRO 05:58 → 3E 06:28 → SUATTDRO 08-13 07:49 → 2S 08-13 09:06